=== PATIENT | female | born 1990 | race Caucasian/White ===

== ENCOUNTER 2016-09-19 12:31 | Emergency (ER) | payer BC ==
[2016-09-19] MEDS ORDERED: Sodium Chloride 0.9% 10 ML Syringe FLUSH PRN (13:16)
[2016-09-19] MEDS ORDERED: Sodium Chloride 0.9% 1,000 ML IV ONE (13:17)
--- NOTE | 2016-09-19 13:22 | EDM.PDOC ---
ED HISTORY OF PRESENT ILLNESS - General Chief Complaint: Cardiovascular Problem Stated Complaint: PASSED OUT,HIGH BLOOD PRESSURE Time Seen by Provider: 09/19/16 12:59 Source of Information: Reports: Patient History Limitations: Reports: No limitations - History of Present Illness INITIAL COMMENTS - FREE TEXT/NARRATIVE: Patient is a 26-year-old female who presents to the E.D. complaining of presyncopal episode today while sitting eating lunch. States she became lightheaded, dizzy while standing up and got the sensation she was going to black out. Patient sat down and symptoms resolved. [facility] findings of 170/124 heart rate 148. She had palpitations and developed a heaviness to chest. Chest heaviness was rated 5/10 worsened with taking a deep breath. She is mildly short of breath. She denies any cough. She does have a history walking pneumonia this past July and was prescribed Z-Dereje. She does not believe symptoms have resolved and is feeling excessively tired. Patient states her appetite has been okay. She's been sleeping well. She denies any increased stress while at work as of recent. There is no chance of being . She has no history of DVT/PE denies unilateral swelling, recent long travel, recent hospitalization, recent surgeries, PCP,smoking, or hemoptysis. She has a past history of ADHD and takes Concerta, hypertension, and night terrors takes prazosin. 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 She has been experiencing night terrors relieved with prazosin. Patient had a similar episode this past week while sitting at her desk typing. Patient notes at that time she did pass out for a short period of time. She was evaluated here in the ER with a blood pressure noted to be 156/144 heart rate 155. She did have blood work obtained which revealed she had elevated TSH. She was given metoprolol while in the emergency department and was instructed to follow up with PCP. Patient has an appointment with her primary care provider tomorrow. Timing/Duration: Reports: Improving, Waxing/waning Severity: moderate Location, General: Reports: chest (heaviness) Improves with: Reports: None Worsens with: Reports: Breathing, Other (palpation) Context, General: Reports: Other (none stated) Associated Symptoms (General): Reports: chest pain (heaviness), cough (minimal) , malaise, shortness of breath. 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) (none stated) - Related Data Allergies/ADRs: Allergies Allergy/AdvReac Type Severity Reaction Status Date / Time No Known Allergies Allergy Verified 09/19/16 12:43 Home Meds: Home Meds Levonorgestrel-Ethin Estradiol [Levonor-Eth Estrad 0.15-0.03] 1 tab PO DAILY 11/05 [History] Methylphenidate HCl [Concerta] 36 mg PO DAILY 02/24/16 [History] ClonazePAM [KlonoPIN] 2 mg PO BEDTIME #20 tab 09/19/16 [Rx] Metoprolol Tartrate 25 mg PO BID #60 tablet 09/19/16 [Rx] Past Medical History - Past Health History Medical/Surgical History: Denies Medical/Surgical History Cardiovascular History: Reports: Hypertension Neurological History: Reports: Other (see below) Other Neuro History: night terrors Psychiatric History: Reports: ADHD - Infectious Disease History Infectious Disease History: Reports: Chicken pox - Past Surgical History HEENT Surgical History: Reports: Oral surgery, Tonsillectomy Social & Family History - Tobacco Use Smoking Status *Q: Never Smoker Second Hand Smoke Exposure: No - Caffeine Use Caffeine Use: Reports: None - Alcohol Use Days Per Week of Alcohol Use: 1 - Recreational Drug Use Recreational Drug Use: No ED ROS GENERAL - Review of Systems Review Of Systems: See Below Constitutional: Reports: malaise, fatigue. Denies: fever, chills HEENT: Reports: No symptoms Respiratory: Reports: shortness of breath, pleuritic chest pain, cough. Denies : wheezing, sputum Cardiovascular: Reports: Chest pain, Blood pressure problem, Lightheadedness, Palpitations. Denies: Dyspnea on exertion, Orthopnea, PND, Syncope GI/Abdominal: Reports: No symptoms Musculoskeletal: Reports: no symptoms Neurological: Reports: dizziness. Denies: confusion, headache, numbness, pre- existing deficit, syncope, tingling, difficulty walking, weakness ED EXAM, GENERAL - Physical Exam Exam: See Below Exam Limited By: No limitations General Appearance: alert, WD/WN, anxious Eye Exam: bilateral eye: PERRL Ears: hearing grossly normal Nose: normal inspection Throat/Mouth: Normal voice, No airway compromise, Other (dry mouth) Neck: normal inspection, supple, non-tender, full range of motion. No: lymphadenopathy (L), lymphadenopathy (R) Respiratory/Chest: no respiratory distress, lungs clear, normal breath sounds Cardiovascular: normal peripheral pulses, regular rate, rhythm, no murmur, tachycardia Peripheral Pulses: 2+: radial (L) GI/Abdominal: normal bowel sounds, soft, non tender, no distention Back Exam: normal inspection Extremities: normal inspection, normal range of motion, non-tender, no pedal edema, normal capillary refill Neurological: alert, oriented, CN II-XII intact, normal cognition, no motor/ sensory deficits Psychiatric: normal affect, normal mood Skin Exam: Warm, Dry, Intact, Normal color Course - Vital Signs Last Recorded V/S: Last Vital Signs Temp 99.4 F 09/19/16 12:38 Pulse 102 H 09/19/16 15:56 Resp 19 09/19/16 15:56 BP 132/98 H 09/19/16 15:56 Pulse Ox 99 09/19/16 15:56 - Orders/Labs/Meds Orders: Active Orders 24 hr Category Date Time Status EKG Documentation Completion [RC] STAT Care 09/19/16 13:15 Active Event Monitor [RC] .PRN Care 09/19/16 15:00 Active Orthostatic Vital Signs [RC] ASDIRECTED Care 09/19/16 13:17 Active Peripheral IV Care [RC] . DIRECTED Care 09/19/16 13:16 Active Peripheral IV Insertion Adult [OM.PC] Stat Oth 09/19/16 13:15 Ordered Labs: Laboratory Tests 09/19/16 09/19/16 09/19/16 Range/Units 12:50 12:50 12:50 WBC 6.67 (3.98-10.04) K/mm3 RBC 5.01 (3.98-5.22) M/mm3 Hgb 15.0 (11.2-15.7) gm/L Hct 45.0 H (34.1-44.9) % MCV 89.8 (79.4-94.8) fl MCH 29.9 (25.6-32.2) pg MCHC 33.3 (32.2-35.5) g/dl RDW Std Deviation 41.9 (36.4-46.3) fL Plt Count 337 (182-369) K/mm3 MPV 9.9 (9.4-12.3) fl Neut % (Auto) 66.7 (34.0-71.1) % Lymph % (Auto) 27.1 (19.3-51.7) % [place] % (Auto) 5.4 (4.7-12.5) % Eos % (Auto) 0.4 L (0.7-5.8) Baso % (Auto) 0.3 (0.1-1.2) % Neut # 4.44 (1.56-6.13) K/mm3 Lymph # 1.81 (1.18-3.74) K/mm3 [place] # 0.36 (0.24-0.36) K/mm3 Eos # 0.03 L (0.04-0.36) K/mm3 Baso # 0.02 (0.01-0.08) K/mm3 D-Dimer, Quantitative 0.25 (0.19-0.59) mg/L Sodium 139 (136-145) mEq/L Potassium 3.4 L (3.5-5.1) mEq/L Chloride 103 (98-107) mEq/L Carbon Dioxide 27 (21-32) mEq/L Anion Gap 12.4 (5-15) BUN 6 L (7-18) mg/dL Creatinine 0.7 (0.55-1.02) mg/dL Est Cr Clr Drug Dosing TNP Estimated GFR (MDRD) > 60 (>60) mL/min BUN/Creatinine Ratio 8.6 L (14-18) Glucose 105 (74-106) mg/dL Calcium 9.0 (8.5-10.1) mg/dL Total Bilirubin 0.3 (0.2-1.0) mg/dL AST 16 (15-37) U/L ALT 27 (14-59) U/L Alkaline Phosphatase 57 (46-116) U/L Troponin I (0.00-0.056) ng/mL Total Protein 8.0 (6.4-8.2) g/dl Albumin 4.3 (3.4-5.0) g/dl Globulin 3.7 gm/dL Albumin/Globulin Ratio 1.2 (1-2) Urine Color (Yellow) Urine Appearance (Clear) Urine pH (5.0-8.0) Ur Specific [place] (1.005-1.030) Urine Protein (Negative) Urine Glucose (UA) (Negative) Urine Ketones (Negative) Urine Occult Blood (Negative) Urine Nitrite (Negative) Urine Bilirubin (Negative) Urine Urobilinogen (0.2-1.0) Ur Leukocyte Esterase (Negative) Urine RBC (0-5) /hpf Urine WBC (0-5) /hpf Ur Epithelial Cells (0-5) /hpf Urine Bacteria (FEW) /hpf Urine Mucus (FEW) /hpf 09/19/16 09/19/16 Range/Units 12:50 14:13 WBC (3.98-10.04) K/mm3 RBC (3.98-5.22) M/mm3 Hgb (11.2-15.7) gm/L Hct (34.1-44.9) % MCV (79.4-94.8) fl MCH (25.6-32.2) pg MCHC (32.2-35.5) g/dl RDW Std Deviation (36.4-46.3) fL Plt Count (182-369) K/mm3 MPV (9.4-12.3) fl Neut % (Auto) (34.0-71.1) % Lymph % (Auto) (19.3-51.7) % [place] % (Auto) (4.7-12.5) % Eos % (Auto) (0.7-5.8) Baso % (Auto) (0.1-1.2) % Neut # (1.56-6.13) K/mm3 Lymph # (1.18-3.74) K/mm3 [place] # (0.24-0.36) K/mm3 Eos # (0.04-0.36) K/mm3 Baso # (0.01-0.08) K/mm3 D-Dimer, Quantitative (0.19-0.59) mg/L Sodium (136-145) mEq/L Potassium (3.5-5.1) mEq/L Chloride (98-107) mEq/L Carbon Dioxide (21-32) mEq/L Anion Gap (5-15) BUN (7-18) mg/dL Creatinine (0.55-1.02) mg/dL Est Cr Clr Drug Dosing Estimated GFR (MDRD) (>60) mL/min BUN/Creatinine Ratio (14-18) Glucose (74-106) mg/dL Calcium (8.5-10.1) mg/dL Total Bilirubin (0.2-1.0) mg/dL AST (15-37) U/L ALT (14-59) U/L Alkaline Phosphatase (46-116) U/L Troponin I < 0.017 (0.00-0.056) ng/mL Total Protein (6.4-8.2) g/dl Albumin (3.4-5.0) g/dl Globulin gm/dL Albumin/Globulin Ratio (1-2) Urine Color Light yellow (Yellow) Urine Appearance Clear (Clear) Urine pH 7.0 (5.0-8.0) Ur Specific [place] 1.015 (1.005-1.030) Urine Protein Negative (Negative) Urine Glucose (UA) Negative (Negative) Urine Ketones Negative (Negative) Urine Occult Blood Negative (Negative) Urine Nitrite Negative (Negative) Urine Bilirubin Negative (Negative) Urine Urobilinogen 0.2 (0.2-1.0) Ur Leukocyte Esterase Negative (Negative) Urine RBC 0-5 (0-5) /hpf Urine WBC 0-5 (0-5) /hpf Ur Epithelial Cells 0-5 (0-5) /hpf Urine Bacteria Rare (FEW) /hpf Urine Mucus Not seen (FEW) /hpf Meds: Medications Discontinued Medications Generic Name Dose Route Start Last Admin Trade Name Freq PRN Reason Stop Dose Admin Sodium Chloride 1,000 mls @ 999 mls/hr 09/19/16 13:17 09/19/16 13:34 Normal Saline IV 09/19/16 14:17 999 mls/hr ONETIME ONE Administration Lorazepam 1 mg 09/19/16 13:16 09/19/16 14:05 Ativan IVPUSH 09/19/16 13:17 0.5 mg ONETIME ONE Administration Metoprolol Tartrate 25 mg 09/19/16 14:54 09/19/16 15:04 Lopressor PO 09/19/16 14:55 25 mg ONETIME ONE Administration Sodium Chloride 10 ml 09/19/16 13:16 09/19/16 14:08 Saline Flush FLUSH 10 ml ASDIRECTED PRN Administration Keep Vein Open - Re-Assessments/Exams Free Text/Narrative Re-Assessment/Exam: WIll obtain peripheral IV with NS 1000ml/hr, ativan 1mg IV. Initial labs and studies include CBC, C14, DDimer, CXR, EKG,Orthostatic vitals, UA with micro. HCG was obtained last and was negative. TSH was mildly elevated. 09/19/16 13:21 CXR revealed no acute abnormalities. Reviewed by Dr. Linda and he agrees. Final interpretation pending. Discussed patient with Dr. Linda suggested discontinuing prazosin and starting patient on clonazepam 2mg HS. Inaddition he agrees with starting patient on lopressor 25mg b.i.d for hypertension and tachycardia. 1450 Reassessment, discussed labs and studies with patient. BP stable HR 105. During discussion HR increases to 124. Patient appears to be anxious. Patient has been on prazosin since May 2016 for night terrors. This is a alpha arely with high propencity of developing orthostatic hypotension, syncopal episodes, dizziness, palpitations, and shortness of breath. Will stop this medication and start her on clonazepam 2mg at HS. She has appointment with PCP tomorrow morning. In addition will discharge patient home with event monitor for one month. I will also start patient on lopressor 25 mg bid. 1st dose here in the E.D. for hypertension/palpitations. Patient had no additional questions or concerns and agrees with treatment plan. 09/19/16 15:44 Prior to discharge nursing staff noted patient had red rash to the chest/upper arms/abdomen/and upper legs. They were concerned this was related to the ativan. Patient denies any itching nor is the rash consistent with hives. Discussed with he states it is very unlikely related to allergic reaction to ativan. Patient was administered metoprolol with rash already present. No other known factors. Patient will be discharged to take the medications as prescribed and if she should develop worsening rash to body with itching to discontinue the clonazepam take 50mg of benadryl and see PCP the following day. She was instructed to return back to the E.D. as needed for any worsening symptoms. Discharge instructions were changed per nursing staff. Departure - Departure Time of Disposition: 15:03 Disposition: Home, Self-Care 01 Condition: good Clinical Impression: Heart palpitations, Night terror, Tachycardia with hypertension Hypertension Qualifiers: Hypertension type: unspecified secondary hypertension Qualified Code(s): I15.9 - Secondary hypertension, unspecified Syncopal episodes Qualifiers: Syncope type: unspecified Qualified Code(s): R55 - Syncope and collapse Prescriptions: ClonazePAM [KlonoPIN] 2 mg PO BEDTIME #20 tab Metoprolol Tartrate 25 mg PO BID #60 tablet Instructions: Hypertension, [id number], Palpitations, [id number] Referrals: Yancy Mg DO [Primary Care Provider] - Forms: ED Department Discharge, Return to Work/School Form Additional Instructions: Stop taking the prazosin. Continue to push the fluids. With body position changes if you become dizzy sit or lay down until symptoms resolve. For tachycardia and hypertension take metoprolol 25 mg twice a day. For night terrors take clonazepam 2mg PO at HS. These medication changes may be modified by PCP. Event monitor will be in place for one month. Please record any events as experienced today, palpations, or any additional concerning episodes. Please keep appointment with PCP for tomorrow. Return to the E.D. for any new or worsening symptoms. Suggest monitoring BP daily with log kept. No driving today nor while taking the clonazepam. - My Orders Last 24 Hours: My Active Orders 09/19/16 13:15 EKG Documentation Completion [RC] STAT Peripheral IV Insertion Adult [OM.PC] Stat 09/19/16 13:16 Peripheral IV Care [RC] . DIRECTED 09/19/16 13:17 Orthostatic Vital Signs [RC] ASDIRECTED 09/19/16 15:00 Event Monitor [RC] .PRN - Assessment/Plan Last 24 Hours: My Active Orders 09/19/16 13:15 EKG Documentation Completion [RC] STAT Peripheral IV Insertion Adult [OM.PC] Stat 09/19/16 13:16 Peripheral IV Care [RC] . DIRECTED 09/19/16 13:17 Orthostatic Vital Signs [RC] ASDIRECTED 09/19/16 15:00 Event Monitor [RC] .PRN
[2016-09-19] MEDS: LORazepam 2 MG/ML MDV IVPUSH ONE ×2 (13:35→14:05)
[2016-09-19] MEDS ORDERED: Metoprolol Tartrate 25 MG Tab PO ONE (14:54)
--- NOTE | 2016-09-19 15:44 | CR ---
Chest: Two views of the chest were obtained. Comparison: No previous chest x-ray. Heart size and mediastinum are normal. Lungs are clear. Bony structures are unremarkable. Impression: 1. Nothing acute is identified on two-view chest x-ray. Diagnostic code #1
[2016-09-19 16:01] VITALS: BP 132/98
== END 2016-09-19 16:01 | disposition home or self-care (01) ==
LOC: JD.ED 12:31
DX: R55 Syncope and collapse (principal); R00.0 Tachycardia, unspecified; I15.9 Secondary hypertension, unspecified; Z98.890 Other specified postprocedural states; Z79.899 Other long term (current) drug therapy
CPT/HCPCS: 36415; 71020; 80053; 81001; 84484; 85025; 85379; 93005; 96361; 96374; 96376; 99285; A9270; J2060; J7040; J7050

== ENCOUNTER 2017-07-01 17:23 | Emergency (ER) | payer BC ==
--- NOTE | 2017-07-01 17:31 | EDM.PDOC ---
ED HPI GENERAL MEDICAL PROBLEM - General Chief Complaint: General Stated Complaint: HIGH BP/RACING HEART Time Seen by Provider: 07/01/17 17:31 - History of Present Illness INITIAL COMMENTS - FREE TEXT/NARRATIVE: 26-year-old female returns the emergency room with a rapid heartbeat and elevated blood pressure. The patient was driving and she felt light headed she looked at her I watch her pulse was 130. Patient has a history of supraventricular Tachycardia. Currently she's taking metoprolol 25 mg twice a day and his done fairly well on this. However she's noticed that her episodes of palpitations and rapid heart rate or getting a little more frequent. When the patient had this episode she properly pulled off the side of the road and took a half of a metoprolol. By the time she arrived here she is feeling better and her pulse rate is coming down the patient is not having chest pain chest pressure or difficulty breathing at this time when her pulse was racing at the worst she felt as though she just run a marathon in had a little bit of heartburn those sensations have resolved Chest Pain Score (Numeric/FACES): 3 - Related Data Allergies Allergy/AdvReac Type Severity Reaction Status Date / Time No Known Allergies Allergy Verified 07/01/17 17:32 Home Meds: Home Meds Levonorgestrel-Ethin Estradiol [Levonor-Eth Estrad 0.15-0.03] 1 tab PO DAILY 11/05 [History] Methylphenidate HCl [Concerta] 36 mg PO DAILY 02/24/16 [History] Metoprolol Tartrate 25 mg PO BID #60 tablet 09/19/16 [Rx] ClonazePAM [KlonoPIN] 1 mg PO BEDTIME 07/01/17 [History] Past Medical History - Past Health History Medical/Surgical History: Denies Medical/Surgical History Cardiovascular History: Reports: Hypertension Neurological History: Reports: Other (See Below) Other Neuro History: night terrors Psychiatric History: Reports: ADHD - Infectious Disease History Infectious Disease History: Reports: Chicken Pox - Past Surgical History HEENT Surgical History: Reports: Oral Surgery, Tonsillectomy Social & Family History - Tobacco Use Smoking Status *Q: Never Smoker Second Hand Smoke Exposure: No - Caffeine Use Caffeine Use: Reports: None - Alcohol Use Days Per Week of Alcohol Use: 1 - Recreational Drug Use Recreational Drug Use: No ED ROS GENERAL - Review of Systems Review Of Systems: See Below Constitutional: Reports: No Symptoms HEENT: Reports: No Symptoms Respiratory: Reports: No Symptoms Cardiovascular: Reports: Palpitations GI/Abdominal: Reports: No Symptoms Neurological: Reports: No Symptoms Psychiatric: Reports: No Symptoms ED EXAM, GENERAL - Physical Exam Exam: See Below Exam Limited By: No Limitations General Appearance: Alert, No Apparent Distress Head: Atraumatic, Normocephalic Neck: Normal Inspection, Supple, Non-Tender, Full Range of Motion Respiratory/Chest: No Respiratory Distress, Lungs Clear, Normal Breath Sounds Cardiovascular: Regular Rate, Rhythm, No Edema, No Murmur GI/Abdominal: Normal Bowel Sounds, Soft, Non-Tender EKG INTERPRETATION EKG Date: 07/01/17 Rhythm: NSR [place]: Normal P-Wave: Present QRS: Normal ST-T: Normal QT: Normal Comparison: No Change EKG Interpretation Comments: Normal EKG some baseline artifact no changes from prior watching her on telemetry at this time she goes from low 70s to upper 90s. Course - Vital Signs Last Recorded V/S: Last Vital Signs Temp 36.7 C 07/01/17 17:34 Pulse 100 07/01/17 17:34 Resp BP 142/104 H 07/01/17 17:34 Pulse Ox 97 07/01/17 17:34 - Re-Assessments/Exams Free Text/Narrative Re-Assessment/Exam: 07/01/17 18:09 Patient is doing well at this time she's been seen multiple times for this this episode is not associated with anxiety. She took a half metoprolol shortly before coming in her pulse rate responded on its own or perhaps related to the extremity wall. At this point I'm not sure the beneficial to increase her metoprolol versus have her take an extra half metoprolol when she has episodes like this. She is advised to follow-up with regular provider to discuss future treatment options. Departure - Departure Time of Disposition: 18:10 Disposition: Home, Self-Care 01 Clinical Impression: Heart palpitations, Sinus tachycardia - Discharge Information Referrals: Kelley Silva PA-C [Primary Care Provider] - Forms: ED Department Discharge Additional Instructions: Return to the emergency room with any questions problems worsening symptoms. Follow-up with your regular provider this next week. Discuss increasing her metoprolol would be of benefit as it seems like your frequency of episodes seems to be increasing. In the meantime use a half metoprolol on an as-needed basis.
[2017-07-01 18:44] VITALS: BP 112/89
== END 2017-07-01 18:50 | disposition home or self-care (01) ==
LOC: JD.ED 17:23
DX: R00.0 Tachycardia, unspecified (principal); R00.2 Palpitations; I10 Essential (primary) hypertension; Z79.899 Other long term (current) drug therapy
CPT/HCPCS: 93005; 93010; 99284-25; 99285-25

== ENCOUNTER 2020-02-02 10:42 | Emergency (ER) | payer BC, OTHER ==
[2020-02-02 11:07] VITALS: BP 146/97; PULSE 100
--- NOTE | 2020-02-02 11:32 | EDM.PDOC ---
ED HPI GENERAL MEDICAL PROBLEM - General Chief Complaint: Skin Complaint Stated Complaint: ABSCESS ON TAILBONE Time Seen by Provider: 02/02/20 11:00 Source of Information: Reports: Patient History Limitations: Reports: No Limitations - History of Present Illness INITIAL COMMENTS - FREE TEXT/NARRATIVE: Patient is a 29-year-old female , 37 weeks gestation, who presents to the emergency department with complaints of painful area of swelling directly over her tailbone. She states first noticed symptoms approximately 2 days ago. She has been using warm baths to help relieve the symptoms, however she feels like it is getting larger. She denies any associated symptoms including fever, chills, nausea, or vomiting. Of note, she was treated approximately 3 weeks ago for a urinary tract infection using Keflex. She states she tolerated this medication well. She has no other complaints. Lower Back Pain Score (Numeric/FACES): 8 - Related Data Allergies Allergy/AdvReac Type Severity Reaction Status Date / Time No Known Allergies Allergy Verified 02/02/20 11:07 Home Meds: Home Meds Aspirin [Halfprin] 81 mg PO DAILY 01/11/20 [History] Calcium Carbonate [Calcium] 500 mg PO DAILY 01/11/20 [History] Escitalopram Oxalate [Lexapro] 10 mg PO DAILY 01/11/20 [History] Ferrous Sulfate [Iron] 325 mg PO DAILY 01/11/20 [History] No122/Iron/Folic Acid [ Multi Tablet] 1 each PO DAILY 01/11/20 [History] RX: Levothyroxine 75 mcg PO ACBREAKFAST 01/11/20 [History] cephALEXin [Keflex] 500 mg PO Q6H 5 Days #20 cap 02/02/20 [Rx] Past Medical History - Past Health History Medical/Surgical History: Denies Medical/Surgical History Cardiovascular History: Reports: Hypertension 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 low amniotic fluid Neurological History: Reports: Other (See Below) Other Neuro History: night terrors Psychiatric History: Reports: ADHD - Infectious Disease History Infectious Disease History: Reports: Chicken Pox - Past Surgical History HEENT Surgical History: Reports: Oral Surgery, Tonsillectomy Social & Family History - Tobacco Use Smoking Status *Q: Never Smoker - Caffeine Use Caffeine Use: Reports: None ED ROS GENERAL - Review of Systems Review Of Systems: Comprehensive ROS is negative, except as noted in HPI. ED EXAM, SKIN/RASH Exam: See Below Exam Limited By: No Limitations General Appearance: Alert, WD/WN, No Apparent Distress Respiratory/Chest: No Respiratory Distress, Lungs Clear, Normal Breath Sounds, No Accessory Muscle Use, Chest Non-Tender Cardiovascular: Normal Peripheral Pulses, Regular Rate, Rhythm, No Edema, No Gallop, No JVD, No Murmur, No Rub (Female) Exam: Heart Tones (153) Back Exam: Other (Quarter sized area of erythema and swelling directly over the tailbone. Bedside ultrasound completed shows a small hypoechoic area fairly deep below the surface. No open areas or drainage noted.) Neurological: Alert, Oriented, CN II-XII Intact, Normal Cognition, Normal Gait, Normal Reflexes, No Motor/Sensory Deficits Psychiatric: Normal Affect, Normal Mood Course - Vital Signs Last Recorded V/S: Last Vital Signs Temp 97 F 02/02/20 11:04 Pulse 100 02/02/20 11:04 Resp 16 02/02/20 11:04 BP 146/97 H 02/02/20 11:04 Pulse Ox 97 02/02/20 11:04 - Re-Assessments/Exams Free Text/Narrative Re-Assessment/Exam: 02/02/20 11:34 On exam, patient has a quarter sized epidermal cyst over her tailbone. Ultrasound was completed and shows a very small hypoechoic area fairly deep below the surface, therefore I do not feel like I&D is appropriate at this time. We will start her on Keflex antibiotic. Recommend that she continue warm baths. She does have a follow-up appointment scheduled with her TELEGRAPHIC SERVICE DISPATCHER on Monday. Recommend that she have it rechecked at that time. Should increase in size drastically or pain should worsen significant, advised her she should come back to the emergency department as we may be able to I&D at that time. Departure - Departure Time of Disposition: 11:35 Disposition: Home, Self-Care 01 Condition: Good Clinical Impression: Epidermal cyst - Discharge Information *PRESCRIPTION DRUG MONITORING PROGRAM REVIEWED*: No *COPY OF PRESCRIPTION DRUG MONITORING REPORT IN PATIENT SPEEDY: No Prescriptions: cephALEXin [Keflex] 500 mg PO Q6H 5 Days #20 cap Instructions: Epidermal Cyst, [id number] Referrals: Ilene Guzman MD [Primary Care Provider] - Forms: ED Department Discharge Additional Instructions: You were seen in the emergency department today for painful area of swelling of your tailbone. Appears that you have an epidermal cyst in that area. A bedside ultrasound was completed and shows a small collection of fluid, however it is fa irly deep below the surface of the skin. There would be little benefit of opening the area at this time. You have been started on Keflex which is an antibiotic. Take this medication as prescribed. He may continue to take warm baths to help draw the infection out. There is a possibility that over the next couple days the area of fluid will move closer to the surface of the skin and at that time it may be beneficial to open the area. You may use [id number] Tylenol as needed for discomfort. Recommend that you follow-up with your TELEGRAPHIC SERVICE DISPATCHER on Monday as scheduled and have her reassess the area. If you should experience any worsening symptoms such as a drastic increase in size or worsening of pain, do not hesitate to return to the emergency department. Sepsis Event Note (ED) - Evaluation Sepsis Screening Result: No Definite Risk - Focused Exam Vital Signs: Vital Signs Temp Pulse Resp BP Pulse Ox 02/02/20 11:04 97 F 100 16 146/97 H 97
== END 2020-02-02 12:00 | disposition home or self-care (01) ==
LOC: JD.ED 10:42
DX: O99.713 Diseases of the skin and subcutaneous tissue complicating pregnancy, third trimester (principal); L72.0 Epidermal cyst; I10 Essential (primary) hypertension; Z79.82 Long term (current) use of aspirin; Z79.899 Other long term (current) drug therapy; Z3A.37 37 weeks gestation of pregnancy
CPT/HCPCS: 99282; 99283

== ENCOUNTER 2020-02-04 14:10 | Day surgery (SDC) | payer BC ==
[2020-02-04 13:54] VITALS: PULSE 91
--- NOTE | 2020-02-04 14:00 | PCM.PREANE ---
Preanesthetic Assessment - Procedure Proposed Procedure: I+D of pilonidal cyst - Anesthesia/Transfusion/Family Hx Anesthesia History: Prior Anesthesia Without Reaction - Review of Systems General: No Symptoms Pulmonary: No Symptoms Cardiovascular: No Symptoms Gastrointestinal: No Symptoms Neurological: No Symptoms Other: Reports: Anxiety - Physical Assessment Vital Signs: Last Vital Signs Temp 98.7 F 02/04/20 13:30 Pulse 91 02/04/20 13:30 Resp 16 02/04/20 13:30 BP 128/73 02/04/20 13:30 Pulse Ox 96 02/04/20 13:30 ASA Class: 2 Mental Status: Alert & Oriented x3 Airway Class: Mallampati = 2 Dentition: Reports: Normal Dentition, [place](s) Thyro-Mental Finger Breadths: 3 Mouth Opening Finger Breadths: 3 ROM/Head Extension: Full Lungs: Clear to Auscultation, Normal Respiratory Effort Cardiovascular: Regular Rate, Regular Rhythm - Allergies Allergies/Adverse Reactions: Allergies Allergy/AdvReac Type Severity Reaction Status Date / Time No Known Allergies Allergy Verified 02/02/20 11:07 - Acknowledgements Anesthesia Type Planned: MAC Pt an Appropriate Candidate for the Planned Anesthesia: Yes Alternatives and Risks of Anesthesia Discussed w Pt/Guardian: Yes Pt/Guardian Understands and Agrees with Anesthesia Plan: Yes PreAnesthesia Questionnaire - Past Health History Medical/Surgical History: Denies Medical/Surgical History Cardiovascular History: Reports: Hypertension 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 low amniotic fluid Neurological History: Reports: Other (See Below) Other Neuro History: night terrors Psychiatric History: Reports: ADHD - Infectious Disease History Infectious Disease History: Reports: Chicken Pox - Past Surgical History HEENT Surgical History: Reports: Oral Surgery, Tonsillectomy - HOME MEDS Home Medications: Home Meds Aspirin [Halfprin] 81 mg PO DAILY 01/11/20 [History] Calcium Carbonate [Calcium] 500 mg PO DAILY 01/11/20 [History] Escitalopram Oxalate [Lexapro] 10 mg PO DAILY 01/11/20 [History] Ferrous Sulfate [Iron] 325 mg PO DAILY 01/11/20 [History] Levothyroxine 75 mcg PO ACBREAKFAST 01/11/20 [History] No122/Iron/Folic Acid [ Multi Tablet] 1 each PO DAILY 01/11/20 [History] cephALEXin [Keflex] 500 mg PO Q6H 5 Days #20 cap 02/02/20 [Rx] - CURRENT (IN HOUSE) MEDS Current Meds: Current Medications Discontinued Medications Bupivacaine HCl/Epinephrine Bitart (Marcaine 0.5%/Epinephrine 1:200,000) Confirm Administered Dose 50 ml .ROUTE .STK-MED ONE Stop: 02/04/20 13:51
[~2020-02-04 14:10] MED LIST: Famotidine 20 MG/2 ML SDV IVPUSH ONE; Lactated Ringers 1,000 ML IV SCH; Lidocaine 1%/Sod Bicarbonate in NS 8.4% 1 ML Syringe IDERM PRN; Metoclopramide 10 MG/2 ML SDV IVPUSH ONE; Sodium Chloride 0.9% 10 ML Syringe FLUSH PRN
[2020-02-04] MEDS ORDERED: fentaNYL 100 MCG/2 ML SDV IVPUSH STA (14:30)
[2020-02-04] MEDS ORDERED: Ondansetron 4 MG/2 ML SDV ONE (14:42)
[2020-02-04] MEDS ORDERED: Propofol 200 MG/20 ML SDV ONE ×3 (14:42→15:20)
[2020-02-04] MEDS ORDERED: Lidocaine 1% 4 ML ONE (14:43)
[2020-02-04] MEDS ORDERED: fentaNYL 100 MCG/2 ML SDV ONE (14:43)
[2020-02-04] MEDS: Bupivacaine 0.5%/EPINEPHrine 1:200,000 50 ML MDV ONE ×2 (15:11→15:23)
[2020-02-04] MEDS ORDERED: Lactated Ringers 1,000 ML ONE (15:13)
--- NOTE | 2020-02-04 15:46 | PCM48HPAN ---
Post Anesthesia Note - EVALUATION WITHIN 48HRS OF ANESTHETIC Vital Signs in Normal Range: Yes Patient Participated in Evaluation: Yes Respiratory Function Stable: Yes Airway Patent: Yes Cardiovascular Function Stable: Yes Hydration Status Stable: Yes Pain Control Satisfactory: Yes Nausea and Vomiting Control Satisfactory: Yes Mental Status Recovered: Yes Vital Signs: Last Vital Signs Temp 37.1 C 02/04/20 13:30 Pulse 91 02/04/20 13:30 Resp 16 02/04/20 13:30 BP 128/73 02/04/20 13:30 Pulse Ox 96 02/04/20 13:30 - COMMENTS/OBSERVATIONS Free Text/Narrative:: no anesthesia complications noted
--- NOTE | 2020-02-04 16:04 | PCM.PRNOTE ---
- Free Text/Narrative Note: Date: 02/04/2020 Procedure: incision and drainage, debridement of pilonidal disease Surgeon: Abhi Samson MD Assisting: Love LAMB Findings: large pilonidal abscess with strands of hair in cavity. A small pit was noted inferior to the infected space which tracked superiorly toward the abscess cavity. Detailed Report: The patient was taken to the OR in left lateral decubitus position and monitored anesthesia care initiated. The lower back and buttocks were prepped and draped in sterile fashion. Time out was performed. A total of 26 cc 0.5% marcaine with epinephrine was injected intradermally around the lesion. An 11 blade scalpel was then used to make a curvilinear paramedian incision at the site of fluctuance. Copious pus was drained, and samples for culture were obtained. Once no more pus was able to be expressed, The midline skin at the abscess site was removed as a longitudinally oriented ellipse. The wound measured 3 cm long by 2 cm wide by 3.5 cm deep. A few long strands of hair were removed from the cavity. Loculations were broken up with a hemostat, and a sponge was used to clear away some blood and fibrinous debris. Devitalized tissue and hair was removed with forceps. A curette was used to debride the surfaces of the wound cavity. Once hemostasis was achieved, dilute phenol solution was applied to the wound, with care taken to protect the surrounding skin. A small pit was noted inferior to the cavity along the cleft. A lacrimal probe was inserted and the tract went superiorly and deeply toward the abscess cavity. An incision was made over top the probe, laying the tract open between the pit and the abscess cavity. This tissue appeared uninfected. A moistened kerlix gauze wrap was packed into the wound space and a dressing of ABD pad and mesh underwear applied. The patient tolerated the procedure well.
[2020-02-04 16:29] VITALS: BP 121/76
== END 2020-02-04 16:29 | disposition home or self-care (01) ==
LOC: JD.SDS 14:10
PROVIDERS: ATTEND Surgery
DX: O99.713 Diseases of the skin and subcutaneous tissue complicating pregnancy, third trimester (principal); L05.01 Pilonidal cyst with abscess; B95.2 Enterococcus as the cause of diseases classified elsewhere; B96.89 Other specified bacterial agents as the cause of diseases classified elsewhere; O99.513 Diseases of the respiratory system complicating pregnancy, third trimester; J45.909 Unspecified asthma, uncomplicated; O99.343 Other mental disorders complicating pregnancy, third trimester; F41.0 Panic disorder [episodic paroxysmal anxiety]; F90.9 Attention-deficit hyperactivity disorder, unspecified type; O10.013 Pre-existing essential hypertension complicating pregnancy, third trimester; O99.283 Endocrine, nutritional and metabolic diseases complicating pregnancy, third trimester; E78.00 Pure hypercholesterolemia, unspecified; E03.9 Hypothyroidism, unspecified; O99.613 Diseases of the digestive system complicating pregnancy, third trimester; K21.9 Gastro-esophageal reflux disease without esophagitis; Z79.899 Other long term (current) drug therapy; Z79.82 Long term (current) use of aspirin; Z3A.37 37 weeks gestation of pregnancy
CPT/HCPCS: 11042; 11045; 87075; 87076; 87077; 87205; J0131; J2001; J2405; J2704; J2765; J3010; J3490; J7120; 00300

== ENCOUNTER 2020-02-10 18:53 | Inpatient (IN) | payer BC ==
[2020-02-10] MEDS ORDERED: Nalbuphine 10 MG/ML Syringe IVPUSH PRN (19:28)
[2020-02-10] MEDS ORDERED: Famotidine 20 MG Tab PO PRN (19:28)
[2020-02-10] MEDS ORDERED: Calcium Carbonate 500 MG Tab.Chew PO PRN (19:28)
[2020-02-10] MEDS ORDERED: Lidocaine 1% 50 ML MDV INJECT ONE (19:28)
[2020-02-10] MEDS ORDERED: Sodium Chloride 0.9% 10 ML Syringe FLUSH PRN (19:28)
[2020-02-10] MEDS ORDERED: Ondansetron 4 MG/2 ML SDV IVPUSH PRN (19:28)
[2020-02-10] MEDS ORDERED: Promethazine 25 MG/ML SDV IM PRN (19:39)
[2020-02-10] MEDS ORDERED: Misoprostol 25 MCG (1/4 of 100 MCG) Tab ONE (19:53)
[2020-02-10] MEDS: Misoprostol 25 MCG (1/4 of 100 MCG) Tab VAG SCH ×2 (19:57→23:54)
--- NOTE | 2020-02-10 20:17 | PCM.LDHP ---
L&D History of Present Illness - General Date of Service: 02/10/20 Admit Problem/Dx: Patient Status Order with Admit Dx/Problem 02/10/20 19:29 Patient Status [ADT] Routine Admission Diagnosis/Problem Admission Diagnosis/Problem Source of Information: Patient History Limitations: Reports: No Limitations - History of Present Illness Introduction:: 29 yo at 37+2 weeks gestation admitted for induction of labor due to preeclampsia. She has had a positive urine protein to creatinine ratio and she has had bp running in the 135-145/80-95 range, but recently have been mostly 130/80's. She has a history of hypertension prior to the but we were able to stop her medicine during the . WE have been seeing her twice weekly for BPP and NST and also weekly labs and they have all been stable. EFW at last BPP on 02/04/20 was 7 lb 5 oz. She also has hypothyroidism and is on levothyroxine 75 mcg daily and thyroid hormone levels have been normal. She has a history of anxiety and has been on escitalopram during her . She has a history of asthma but has not had problems with her breathing recently. She has had some reflux and was having upper abdominal pain that has resolved with Pepcid 20 mg bid. She developed an infected pilonidal cyst that was very painful and had I&D in the OR with Dr. Mcallister on 02/04/20. She is doing twice daily packing changes at home and only has pain with the packing and no purulent drainage or redness at the site. Denies fever. Denies cough, sore throat or SOB. labs reveal blood type A +, antibody screen neg, infectious disease screening negative. She had tetra screen that was low risk for DS, T18 and OSB. 1 hour glucola was wnl at 82 and GBS test is negative. She has had mild anemia and has been taking iron. Platelet count has been normal, liver enzymes normal. She denies having contractions. She is having a girl on ultrasound. She is not sure about breast or bottle feeding. She had her Tdap and influenza vaccines. - Related Data Allergies/Adverse Reactions: Allergies Allergy/AdvReac Type Severity Reaction Status Date / Time No Known Allergies Allergy Verified 02/10/20 20:16 Home Medications: Home Meds Aspirin [Halfprin] 81 mg PO DAILY 01/11/20 [History] Calcium Carbonate [Calcium] 500 mg PO DAILY 01/11/20 [History] Escitalopram Oxalate [Lexapro] 10 mg PO DAILY 01/11/20 [History] Ferrous Sulfate [Iron] 325 mg PO DAILY 01/11/20 [History] Levothyroxine 75 mcg PO ACBREAKFAST 01/11/20 [History] No122/Iron/Folic Acid [ Multi Tablet] 1 each PO DAILY 01/11/20 [History] oxyCODONE 5 mg PO Q4H PRN #30 tab 02/04/20 [Rx] Past Medical History - Past Health History Medical/Surgical History: Denies Medical/Surgical History Cardiovascular History: Reports: Hypertension 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 low amniotic fluid Neurological History: Reports: Other (See Below) Other Neuro History: night terrors Psychiatric History: Reports: ADHD - Infectious Disease History Infectious Disease History: Reports: Chicken Pox - Past Surgical History HEENT Surgical History: Reports: Oral Surgery, Tonsillectomy Social & Family History - Caffeine Use Caffeine Use: Reports: None H&P Review of Systems - Review of Systems: Review Of Systems: See Below General: Reports: No Symptoms HEENT: Reports: No Symptoms Pulmonary: Reports: No Symptoms Cardiovascular: Reports: No Symptoms Gastrointestinal: Reports: No Symptoms Genitourinary: Reports: No Symptoms Musculoskeletal: Reports: No Symptoms Skin: Reports: Wound (Site over sacrum where I&D of pilonidal cyst performed with no surrounding heat or erythema. No purulent drainage noted. The wound is packed with gauze.) Psychiatric: Reports: Anxiety Neurological: Reports: No Symptoms Hematologic/Lymphatic: Reports: Anemia Immunologic: Reports: No Symptoms L&D Exam - Exam Exam: See Below - OB Specific Contraction Frequency (min): no contractions noted Movement: Active Heart Tones: Present Heart Tones per Min: 135 Heart Rate (FHR) Variability: Moderate (6-25 bmp) Presentation: Vertex Estimated Weight: 7 lb 5 oz - Marques Score Marques Score Cervix Position: Posterior Marques Score Consistency: Firm Marques Score Effacement: 0-30% Marques Score Dilation: Closed Marques Score 's Station: -2 Marques Score Total: 1 - Exam General: Alert, Oriented, Cooperative HEENT: Conjunctiva Clear, Mucosa Moist & [place], Pupils Equal Neck: Supple, Trachea Midline Lungs: Normal Respiratory Effort Cardiovascular: Regular Rate, Regular Rhythm GI/Abdominal Exam: Normal Bowel Sounds, Non-Tender Rectal Exam: Deferred Genitourinary: Enlarged uterus Back Exam: Normal Inspection, Full Range of Motion Extremities: Normal Inspection, No Pedal Edema Skin: Warm, Dry, Intact, Wound (Incision over sacrum from I&D on 02/04/20. Wound is currently packed, no surrounding heat or erythema) Neurological: Cranial Nerves Intact Psychiatric: Alert, Normal Affect - Patient Data Lab Results Last 24 hrs: Laboratory Results - last 24 hr 02/10/20 Range/Units 19:50 WBC 9.37 (3.98-10.04) K/mm3 RBC 3.31 L (3.98-5.22) M/mm3 Hgb 10.3 L (11.2-15.7) gm/dl Hct 31.5 L (34.1-44.9) % MCV 95.2 H (79.4-94.8) fl MCH 31.1 (25.6-32.2) pg MCHC 32.7 (32.2-35.5) g/dl RDW Std Deviation 43.7 (36.4-46.3) fL Plt Count 304 (182-369) K/mm3 MPV 10.1 (9.4-12.3) fl Result Diagrams: 02/10/20 19:50 - Problem List (1) 37 weeks gestation of SNOMED Code(s): 34796983 ICD Code: Z3A.37 - 37 WEEKS GESTATION OF Status: Acute Current Visit: Yes (2) Preeclampsia SNOMED Code(s): 863765891 ICD Code: O14.90 - UNSPECIFIED PRE-ECLAMPSIA, UNSPECIFIED TRIMESTER Status: Acute Current Visit: Yes (3) Anxiety SNOMED Code(s): 23610048 ICD Code: F41.9 - ANXIETY DISORDER, UNSPECIFIED Status: Acute Current Visit: Yes (4) Asthma SNOMED Code(s): 267674593 ICD Code: J45.909 - UNSPECIFIED ASTHMA, UNCOMPLICATED Status: Acute Current Visit: Yes (5) Encounter for planned induction of labor SNOMED Code(s): 021299244 ICD Code: Z34.90 - ENCNTR FOR SUPRVSN OF NORMAL , UNSP, UNSP TRIMESTER Status: Acute Current Visit: Yes (6) Hypothyroidism SNOMED Code(s): 78712380 ICD Code: E03.9 - HYPOTHYROIDISM, UNSPECIFIED Status: Acute Current Visit: No Qualifiers: Hypothyroidism type: unspecified Qualified Code(s): E03.9 - Hypothyroidism, unspecified Problem List Initiated/Reviewed/Updated: Yes Orders Last 24hrs: Active Orders 24 hr Category Date Time Status Patient Status [ADT] Routine ADT 02/10/20 19:29 Active Activity as Tolerated [RC] PFP Care 02/10/20 19:29 Active Communication Order [RC] ASDIRECTED Care 02/10/20 19:29 Active Heart Tones [RC] ASDIRECTED Care 02/10/20 19:30 Active Non Stress Test [RC] PER UNIT ROUTINE Care 02/10/20 19:29 Active Notify Provider [RC] PFP Care 02/10/20 19:29 Active Notify Provider [RC] PRN Care 02/10/20 19:29 Active Peripheral IV Care [RC] . DIRECTED Care 02/10/20 19:30 Active Vital Signs [RC] PER UNIT ROUTINE Care 02/10/20 19:29 Active Regular Diet [DIET] Diet 02/10/20 Dinner Active COMPREHENSIVE METABOLIC PN,CMP [CHEM] Stat Lab 02/10/20 19:50 Received INR,PT,PROTHROMBIN TIME [COAG] Stat Lab 02/10/20 19:50 Received PTT,PARTIAL THROMBOPLSTIN TIME [COAG] Stat Lab 02/10/20 19:50 Received RAPID PLASMA REAGIN,RPR [CHEM] Routine Lab 02/10/20 19:50 Received UA W/MICROSCOPIC [URIN] Stat Lab 02/10/20 19:28 Ordered Calcium Carbonate [Tums] Med 02/10/20 19:28 Active 1,000 mg PO Q2H PRN Famotidine [Pepcid] Med 02/10/20 19:28 Active 20 mg PO Q12H PRN Lactated Ringers [Ringers, Lactated] 1,000 ml Med 02/10/20 19:30 Active IV ASDIRECTED Levothyroxine Med 02/11/20 06:00 Active 75 mcg PO ACBREAKFAST Nalbuphine [Nubain] Med 02/10/20 19:28 Active 10 mg IVPUSH Q2H PRN Oxytocin/Lactated Ringers [Pitocin in LR 10 Units/1,000 Med 02/10/20 19:30 Active ML] 10 unit in 1,000 ml IV .CONTINUOUS Promethazine [Phenergan] Med 02/10/20 19:39 Active 25 mg IM Q6H PRN Sodium Chloride 0.9% [Saline Flush] Med 02/10/20 19:28 Active 10 ml FLUSH ASDIRECTED PRN miSOPROStoL [Cytotec] Med 02/10/20 19:45 Active 25 mcg VAG Q4H oxyCODONE Med 02/10/20 19:48 Active 5 mg PO Q6H PRN Electronic Heart Tones Ext w TOCO [WOMSER] Oth 02/10/20 19:29 Ordered Routine Electronic Heart Tones Internal [WOMSER] Per Unit Ot 02/10/20 19:29 O rdered Routine Peripheral IV Insertion Adult [OM.PC] Routine Ot 02/10/20 19:29 Ordered Resuscitation Status Routine Resus Stat 02/10/20 19:28 Ordered Medication Orders Calcium Carbonate/Glycine (Tums) 1,000 mg PO Q2H PRN PRN Reason: Indigestion Famotidine (Pepcid) 20 mg PO Q12H PRN PRN Reason: Heartburn Oxytocin/Lactated Ringer's (Pitocin In Lr 10 Units/1,000 Ml) 10 unit in 1,000 mls @ 500 mls/hr IV .CONTINUOUS JAISON Lactated Ringer's (Ringers, Lactated) 1,000 mls @ 100 mls/hr IV ASDIRECTED [facility] Levothyroxine Sodium (Levothyroxine) 75 mcg PO ACBREAKFAST [facility] Misoprostol (Cytotec) 25 mcg VAG Q4H JAISON Stop: 02/11/20 03:46 Nalbuphine HCl (Nubain) 10 mg IVPUSH Q2H PRN PRN Reason: Pain Oxycodone HCl (Oxycodone) 5 mg PO Q6H PRN PRN Reason: pain Promethazine HCl (Phenergan) 25 mg IM Q6H PRN PRN Reason: Nausea Sodium Chloride (Saline Flush) 10 ml FLUSH ASDIRECTED PRN PRN Reason: Keep Vein Open Assessment/Plan Comment:: 29 yo female at 37+2 weeks gestation admitted for induction of labor due to preeclampsia. She has not had any severe features. BPP on 02/04/20 scored 8/8 with EFW 7 lb 5 oz and PABLO of 10.6. Cervix is not favorable at this time, so cytotec 25 mcg tablet will be placed pv and repeated up to 3 doses. Labs done tonight. Will monitor closely. Pilonidal cyst with abscess and s/p I&D in the OR on 02/04/20 and is healing well, no sign of infection at this time. Twice daily packing changes with a dose of oxycodone 5 mg prior to procedure. Hypothyroidism - stable on 75 mcg daily. Anxiety - has done well on Lexapro 10 mg daily. Asthma - mild and stable, no flares during her . Mild anemia - has been taking her vitami and iron supplement.
--- NOTE | 2020-02-10 21:39 | PCM.PREANE ---
Preanesthetic Assessment - Procedure Proposed Procedure: Continuous labor epidural - Anesthesia/Transfusion/Family Hx Anesthesia History: Prior Anesthesia Without Reaction Transfusion History: No Prior Transfusion(s) Additional History: recent I&D of pilonidal cyst on 02/04/20. Healing well, off antibiotics. - Review of Systems General: No Symptoms Pulmonary: No Symptoms Cardiovascular: No Symptoms Gastrointestinal: No Symptoms Neurological: No Symptoms Other: Reports: Anxiety - Physical Assessment Vital Signs: Last Vital Signs Temp 97.0 F 02/10/20 19:29 Pulse 85 02/10/20 19:29 Resp 16 02/10/20 19:29 BP 143/84 H 02/10/20 19:29 Pulse Ox 98 02/10/20 19:29 Height: 1.65 m Weight: 90.356 kg ASA Class: 2 Airway Class: Mallampati = 2 Dentition: Reports: Normal Dentition, [place](s) Thyro-Mental Finger Breadths: 3 Mouth Opening Finger Breadths: 3 ROM/Head Extension: Full Lungs: Clear to Auscultation, Normal Respiratory Effort Cardiovascular: Regular Rate, Regular Rhythm - Lab Values: Laboratory Last Values WBC 9.37 K/mm3 (3.98-10.04) 02/10/20 19:50 RBC 3.31 M/mm3 (3.98-5.22) L 02/10/20 19:50 Hgb 10.3 gm/dl (11.2-15.7) L 02/10/20 19:50 Hct 31.5 % (34.1-44.9) L 02/10/20 19:50 MCV 95.2 fl (79.4-94.8) H 02/10/20 19:50 MCH 31.1 pg (25.6-32.2) 02/10/20 19:50 MCHC 32.7 g/dl (32.2-35.5) 02/10/20 19:50 RDW Std Deviation 43.7 fL (36.4-46.3) 02/10/20 19:50 Plt Count 304 K/mm3 (182-369) 02/10/20 19:50 MPV 10.1 fl (9.4-12.3) 02/10/20 19:50 PT 9.4 SECONDS (9.7-12.0) L 02/10/20 19:50 INR < 0.93 07/20/20 19:50 APTT 25 SECONDS (22-31) 02/10/20 19:50 Sodium 140 mEq/L (136-145) 02/10/20 19:50 Potassium 3.3 mEq/L (3.5-5.1) L 02/10/20 19:50 Chloride 106 mEq/L (98-107) 02/10/20 19:50 Carbon Dioxide 22 mEq/L (21-32) 02/10/20 19:50 Anion Gap 15.3 (5-15) H 02/10/20 19:50 BUN 11 mg/dL (7-18) 02/10/20 19:50 Creatinine 0.9 mg/dL (0.55-1.02) 02/10/20 19:50 Est Cr Clr Drug Dosing 82.25 mL/min 02/10/20 19:50 Estimated GFR (MDRD) > 60 mL/min (>60) 02/10/20 19:50 BUN/Creatinine Ratio 12.2 (14-18) L 02/10/20 19:50 Glucose 84 mg/dL (74-106) 02/10/20 19:50 Calcium 8.9 mg/dL (8.5-10.1) 02/10/20 19:50 Total Bilirubin 0.2 mg/dL (0.2-1.0) 02/10/20 19:50 AST 22 U/L (15-37) 02/10/20 19:50 ALT 32 U/L (14-59) 02/10/20 19:50 Alkaline Phosphatase 137 U/L (46-116) H 02/10/20 19:50 Total Protein 6.3 g/dl (6.4-8.2) L 02/10/20 19:50 Albumin 2.5 g/dl (3.4-5.0) L 02/10/20 19:50 Globulin 3.8 gm/dL 02/10/20 19:50 Albumin/Globulin Ratio 0.7 (1-2) L 02/10/20 19:50 Urine Color Yellow (Yellow) 02/10/20 19:55 Urine Appearance Clear (Clear) 02/10/20 19:55 Urine pH 7.0 (5.0-8.0) 02/10/20 19:55 Ur Specific [place] 1.025 (1.005-1.030) 02/10/20 19:55 Urine Protein Negative (Negative) 02/10/20 19:55 Urine Glucose (UA) Negative (Negative) 02/10/20 19:55 Urine Ketones Trace (Negative) H 02/10/20 19:55 Urine Occult Blood Negative (Negative) 02/10/20 19:55 Urine Nitrite Negative (Negative) 02/10/20 19:55 Urine Bilirubin Negative (Negative) 02/10/20 19:55 Urine Urobilinogen 0.2 (0.2-1.0) 02/10/20 19:55 Ur Leukocyte Esterase 1+ (Negative) H 02/10/20 19:55 Urine RBC 0-5 /hpf (0-5) 02/10/20 19:55 Urine WBC 5-10 /hpf (0-5) H 02/10/20 19:55 Ur Squamous Epith Cells 0-5 /hpf (0-5) 02/10/20 19:55 Amorphous Sediment Few /hpf (NOT SEEN) H 02/10/20 19:55 Urine Bacteria Moderate /hpf (FEW) H 02/10/20 19:55 Urine Mucus Few /hpf (FEW) 02/10/20 19:55 RPR Non-reactive (NONREACTIVE) 02/10/20 19:50 - Allergies Allergies/Adverse Reactions: Allergies Allergy/AdvReac Type Severity Reaction Status Date / Time No Known Allergies Allergy Verified 02/10/20 20:16 - Acknowledgements Anesthesia Type Planned: Epidural Pt an Appropriate Candidate for the Planned Anesthesia: Yes Alternatives and Risks of Anesthesia Discussed w Pt/Guardian: Yes Pt/Guardian Understands and Agrees with Anesthesia Plan: Yes PreAnesthesia Questionnaire - Past Health History Medical/Surgical History: Denies Medical/Surgical History HEENT History: Reports: Other (See Below) Other HEENT History: Wears glasses Cardiovascular History: Reports: Hypertension Other Cardiovascular History: Sinus tachycardia Respiratory History: Reports: Asthma Gastrointestinal History: Reports: Chronic Constipation, GERD, Irritable Bowel Syndrome RN LABOR AND DELIVERY History: Reports: Other (See Below) Other OB/BYN History: hypercoiled ambilical cord. low amniotic fluid Neurological History: Reports: Other (See Below) Other Neuro History: night terrors Psychiatric History: Reports: ADHD Other Psychiatric History: Night terrors Endocrine/Metabolic History: Reports: Hypothyroidism, Vitamin D Deficiency Hematologic History: Reports: Anemia - Infectious Disease History Infectious Disease History: Reports: Chicken Pox - Past Surgical History HEENT Surgical History: Reports: Oral Surgery, Tonsillectomy - SUBSTANCE USE Smoking Status *Q: Never Smoker Second Hand Smoke Exposure: No Recreational Drug Use History: No - HOME MEDS Home Medications: Home Meds Aspirin [Halfprin] 81 mg PO DAILY 01/11/20 [History] Calcium Carbonate [Calcium] 500 mg PO DAILY 01/11/20 [History] Escitalopram Oxalate [Lexapro] 10 mg PO DAILY 01/11/20 [History] Ferrous Sulfate [Iron] 325 mg PO DAILY 01/11/20 [History] Levothyroxine 75 mcg PO ACBREAKFAST 01/11/20 [History] No122/Iron/Folic Acid [ Multi Tablet] 1 each PO DAILY 01/11/20 [History] oxyCODONE 5 mg PO Q4H PRN #30 tab 02/04/20 [Rx] Albuterol Sulfate 2.5 mg IH Q4HR PRN 02/10/20 [History] Albuterol [Ventolin HFA] 2 puff INH Q4H PRN 02/10/20 [History] Cholecalciferol (Vitamin D3) [Vitamin D3] 5,000 unit PO DAILY 02/10/20 [History] Cyclobenzaprine HCl 5 - 10 mg PO TID PRN 02/10/20 [History] Famotidine [Acid Controller] 20 mg PO Q12HR PRN 02/10/20 [History] - CURRENT (IN HOUSE) MEDS Current Meds: Current Medications Calcium Carbonate/Glycine (Tums) 1,000 mg PO Q2H PRN PRN Reason: Indigestion Famotidine (Pepcid) 20 mg PO Q12H PRN PRN Reason: Heartburn Hydroxyzine HCl (Atarax) 25 mg PO BEDTIME JAISON Oxytocin/Lactated Ringer's (Pitocin In Lr 10 Units/1,000 Ml) 10 unit in 1,000 mls @ 500 mls/hr IV .CONTINUOUS JAISON Lactated Ringer's (Ringers, Lactated) 1,000 mls @ 100 mls/hr IV ASDIRECTED JAISON Levothyroxine Sodium (Levothyroxine) 75 mcg PO ACBREAKFAST JAISON Misoprostol (Cytotec) 25 mcg VAG Q4H JAISON Stop: 02/11/20 03:46 Last Admin: 02/10/20 19:57 Dose: 25 mcg Documented by: Nalbuphine HCl (Nubain) 10 mg IVPUSH Q2H PRN PRN Reason: Pain Oxycodone HCl (Oxycodone) 5 mg PO Q6H PRN PRN Reason: pain Promethazine HCl (Phenergan) 25 mg IM Q6H PRN PRN Reason: Nausea Sodium Chloride (Saline Flush) 10 ml FLUSH ASDIRECTED PRN PRN Reason: Keep Vein Open Discontinued Medications Lidocaine HCl (Xylocaine 1%) 20 ml INJECT ONETIME ONE Stop: 02/10/20 19:29 Misoprostol (Cytotec) Confirm Administered Dose 25 mcg .ROUTE .STK-MED ONE Stop: 02/10/20 19:54 Ondansetron HCl (Zofran) 4 mg IVPUSH Q4H PRN PRN Reason: Nausea/Vomiting
[2020-02-10] MEDS ORDERED: fentaNYL 100 MCG/2 ML SDV EPIDUR PRN (21:45)
[2020-02-10] MEDS ORDERED: ePHEDrine 50 MG/ML SDV IVPUSH PRN (21:45)
[2020-02-10] MEDS ORDERED: diphenhydrAMINE 50 MG/ML SDV IVPUSH PRN (21:45)
[2020-02-10] MEDS: hydrOXYzine HCl 25 MG Tab PO SCH (22:47)
[2020-02-11] MEDS: Misoprostol 25 MCG (1/4 of 100 MCG) Tab VAG SCH (03:54)
[2020-02-11] MEDS: oxyCODONE 5 MG Tab PO PRN (05:04)
[2020-02-11] MEDS: Levothyroxine 75 MCG Tab PO SCH (06:18)
--- NOTE | 2020-02-11 08:45 | PCM.PNLD ---
Labor Progress Note - VS & Meds Vital Signs: Last Vital Signs Temp 36.1 C 02/10/20 19:29 Pulse 85 02/10/20 19:29 Resp 16 02/10/20 19:29 BP 143/84 H 02/10/20 19:29 Pulse Ox 98 02/10/20 19:29 Active Medications: Current Medications Calcium Carbonate/Glycine (Tums) 1,000 mg PO Q2H PRN PRN Reason: Indigestion Diphenhydramine HCl (Benadryl) 25 mg IVPUSH Q6H PRN PRN Reason: pruritis Ephedrine Sulfate (Ephedrine Sulfate) 5 mg IVPUSH ASDIRECTED PRN PRN Reason: Hypotension Famotidine (Pepcid) 20 mg PO Q12H PRN PRN Reason: Heartburn Fentanyl (Sublimaze) 100 mcg EPIDUR Q3H PRN PRN Reason: Pain Fentanyl/Bupivacaine HCl (Fentanyl/Bupivacaine/Ns 2 Mcg-0.125% 100 Ml) 100 ml EPIDUR ASDIRECTED PRN PRN Reason: Pain Hydroxyzine HCl (Atarax) 25 mg PO BEDTIME [facility] Last Admin: 02/10/20 22:47 Dose: 25 mg Documented by: Oxytocin/Lactated Ringer's (Pitocin In Lr 10 Units/1,000 Ml) 10 unit in 1,000 mls @ 500 mls/hr IV .CONTINUOUS JAISON Lactated Ringer's (Ringers, Lactated) 1,000 mls @ 100 mls/hr IV ASDIRECTED JAISON Levothyroxine Sodium (Levothyroxine) 75 mcg PO ACBREAKFAST [facility] Last Admin: 02/11/20 06:18 Dose: 75 mcg Documented by: Nalbuphine HCl (Nubain) 10 mg IVPUSH Q2H PRN PRN Reason: Pain Oxycodone HCl (Oxycodone) 5 mg PO Q6H PRN PRN Reason: pain Last Admin: 02/11/20 05:04 Dose: 5 mg Documented by: Promethazine HCl (Phenergan) 25 mg IM Q6H PRN PRN Reason: Nausea Sodium Chloride (Saline Flush) 10 ml FLUSH ASDIRECTED PRN PRN Reason: Keep Vein Open Discontinued Medications Lidocaine HCl (Xylocaine 1%) 20 ml INJECT ONETIME ONE Stop: 02/10/20 19:29 Misoprostol (Cytotec) 25 mcg VAG Q4H JAISON Stop: 02/11/20 03:46 Last Admin: 02/11/20 03:54 Dose: 25 mcg Documented by: Misoprostol (Cytotec) Confirm Administered Dose 25 mcg .ROUTE .STK-MED ONE Stop: 02/10/20 19:54 Last Admin: 02/10/20 22:48 Dose: Not Given Documented by: Ondansetron HCl (Zofran) 4 mg IVPUSH Q4H PRN PRN Reason: Nausea/Vomiting - Uterine Contractions Uterine Monitoring Mode: External [place] Contraction Frequency (min): irregular tightenings Contraction Duration (sec): 60 Contraction Intensity: Mild Uterine Resting Tone: Soft - Monitoring Monitor Mode: External Ultrasound Heart Rate (FHR) Baseline: 130 Heart Rate (FHR) Variability: Moderate (6-25 bmp) Accelerations: Present, 15x15 Decelerations: None Strip Review: Category I - Vaginal Exam Dilation (cm): 1 cm Effacement (Percent): 30% Station: -2 Cervical Position: Posterior Sterile Vaginal Exam Performed By: Dr. Guzman - Labor Progress (Free Text) Labor Progress: She has received 3 doses of vaginal cytotec 25 mcg. Last dose at 0400. She is feeling more cramping, but still comfortable. Fetus has tolerated with category I strip. Her bp has been 130-140/80-90's. Cervix is only 1 cm, 30% effaced and posterior. Discussed placing mckeon to assist with cervical ripening and start pitocin simultaneously. Patient agreed to the plan. Speculum inserted and there was a large amount of thick white with blood tinge discharge and cervix difficult to visualize. I placed a finger of an XL glove over the speculum blades to prevent the side briones from falling in and reinserted the speculum. Good visualization of the cervix obtained and a 16 Fr catheter was passed through the cervical os easily and then the bulb was filled with 30 cc of saline. Speculum removed. Patient tolerated procedure. Assessment - at 37 weeks with preeclampsia without severe features. Has had 3 doses of cytotec but still needs further cervical ripening. Category I monitor strip. Plan: Mckeon catheter placed through the cervical os and bulb filled with 30 ml saline. Start pitocin per protocol. Continue to monitor closely.
[2020-02-11] MEDS: Lactated Ringers 1,000 ML IV SCH ×3 (08:53→18:50)
[2020-02-11] MEDS ORDERED: Oxytocin/Lactated Ringers 10 UNIT/1,000 ML BAG IV SCH (09:00)
--- NOTE | 2020-02-11 12:52 | PCM.PNLD ---
Labor Progress Note - VS & Meds Vital Signs: Last Vital Signs Temp 36.1 C 02/10/20 19:29 Pulse 85 02/10/20 19:29 Resp 16 02/10/20 19:29 BP 143/84 H 02/10/20 19:29 Pulse Ox 98 02/10/20 19:29 Active Medications: Current Medications Calcium Carbonate/Glycine (Tums) 1,000 mg PO Q2H PRN PRN Reason: Indigestion Diphenhydramine HCl (Benadryl) 25 mg IVPUSH Q6H PRN PRN Reason: pruritis Ephedrine Sulfate (Ephedrine Sulfate) 5 mg IVPUSH ASDIRECTED PRN PRN Reason: Hypotension Famotidine (Pepcid) 20 mg PO Q12H PRN PRN Reason: Heartburn Fentanyl (Sublimaze) 100 mcg EPIDUR Q3H PRN PRN Reason: Pain Fentanyl/Bupivacaine HCl (Fentanyl/Bupivacaine/Ns 2 Mcg-0.125% 100 Ml) 100 ml EPIDUR ASDIRECTED PRN PRN Reason: Pain Hydroxyzine HCl (Atarax) 25 mg PO BEDTIME JAISON Last Admin: 02/10/20 22:47 Dose: 25 mg Documented by: Oxytocin/Lactated Ringer's (Pitocin In Lr 10 Units/1,000 Ml) 10 unit in 1,000 mls @ 500 mls/hr IV .CONTINUOUS JAISON Lactated Ringer's (Ringers, Lactated) 1,000 mls @ 100 mls/hr IV ASDIRECTED JAISON Last Admin: 02/11/20 08:53 Dose: 100 mls/hr Documented by: Oxytocin/Lactated Ringer's (Pitocin In Lr 10 Units/1,000 Ml) 10 unit in 1,000 mls @ 12 mls/hr IV TITRATE JAISON; Protocol Last Admin: 02/11/20 09:00 Dose: 2 munits/min, 12 mls/hr Documented by: Levothyroxine Sodium (Levothyroxine) 75 mcg PO ACBREAKFAST JAISON Last Admin: 02/11/20 06:18 Dose: 75 mcg Documented by: Nalbuphine HCl (Nubain) 10 mg IVPUSH Q2H PRN PRN Reason: Pain Oxycodone HCl (Oxycodone) 5 mg PO Q6H PRN PRN Reason: pain Last Admin: 02/11/20 05:04 Dose: 5 mg Documented by: Promethazine HCl (Phenergan) 25 mg IM Q6H PRN PRN Reason: Nausea Sodium Chloride (Saline Flush) 10 ml FLUSH ASDIRECTED PRN PRN Reason: Keep Vein Open Discontinued Medications Lidocaine HCl (Xylocaine 1%) 20 ml INJECT ONETIME ONE Stop: 02/10/20 19:29 Misoprostol (Cytotec) 25 mcg VAG Q4H JAISON Stop: 02/11/20 03:46 Last Admin: 02/11/20 03:54 Dose: 25 mcg Documented by: Misoprostol (Cytotec) Confirm Administered Dose 25 mcg .ROUTE .STK-MED ONE Stop: 02/10/20 19:54 Last Admin: 02/10/20 22:48 Dose: Not Given Documented by: Ondansetron HCl (Zofran) 4 mg IVPUSH Q4H PRN PRN Reason: Nausea/Vomiting - Uterine Contractions Uterine Monitoring Mode: External [place] Contraction Frequency (min): q2 Contraction Duration (sec): 60 Contraction Intensity: Moderate Uterine Resting Tone: Soft - Monitoring Monitor Mode: External Ultrasound Heart Rate (FHR) Baseline: 150 Heart Rate (FHR) Variability: Moderate (6-25 bmp) Accelerations: Present, 15x15 Decelerations: None Strip Review: Category I - Vaginal Exam Dilation (cm): 1 cm Effacement (Percent): 30% Station: -2 Cervical Position: Posterior Sterile Vaginal Exam Performed By: Dr. Guzman Vaginal Exam Comment: Patient not examined again now since mckeon is still in place - Labor Progress (Free Text) Labor Progress: Patient is complaining of lower abdominal pain and pelvic pressure with contractions at 6/10. Currently at 10 mU/min pitocin. Membranes intact. Category I monitor strip. BP has been stable 130-140/80-90's. Plan - continue current plan and increase pitocin as needed. Proceed with epidural per patient request. Plan to perform AROM once mckeon is out and cx at least 3 cm.
[2020-02-11] MEDS: Bupivacaine/fentaNYL/NS 100 ML Bag EPIDUR PRN ×2 (12:59→19:51)
[2020-02-11] MEDS: Oxytocin/Lactated Ringers 10 UNIT/1,000 ML BAG IV SCH (22:53)
[2020-02-11] MEDS ORDERED: fentaNYL 100 MCG/2 ML SDV ONE (23:04)
[2020-02-11] MEDS ORDERED: Misoprostol 200 MCG Tab ONE ×2 (23:38→23:45)
[2020-02-11] MEDS ORDERED: Lidocaine 1% 50 ML MDV ONE (23:40)
[2020-02-11] MEDS ORDERED: fentaNYL 100 MCG/2 ML SDV IVPUSH ONE (23:40)
[2020-02-12] MEDS ORDERED: Bupivacaine 0.25% 10 ML SDV ONE
[2020-02-12] MEDS ORDERED: Lidocaine 1.5% with EPINEPHrine 1:200,000 5 ML Amp ONE
[2020-02-12] MEDS ORDERED: Ondansetron 4 MG/2 ML SDV IVPUSH ONE (00:15)
[2020-02-12] MEDS ORDERED: Ondansetron 4 MG/2 ML SDV ONE (00:16)
--- NOTE | 2020-02-12 00:26 | PCM.SN.2 ---
- Free Text/Narrative Note: Called by nurse at the request of Dr. Guzman with approximately 45 minutes since delivery and placenta still in place. Manual extraction attempted by Dr. Guzman without success. Minimal bleeding. Anesthesia present and did bolus epidural. Patient had received 50 mcg fentanyl prior to my arrival. Under sterile technique pressure put on cord with hand in vagina and placenta delivered via manual extraction. Appears intact. One small suspicious area. Bimanual exploration of uterus preformed x2. No remaining placenta fragments. Somewhat boggy so cytotec x 600 mcg given buccally. Antibiotic dose x1 will be given.
--- NOTE | 2020-02-12 01:01 | PCM.DEL ---
L & D Note - General Info Date of Service: 02/11/20 Mother's Due Date: 02/29/20 - Delivery Note Labor: Induced by Oxytocin Cervical Ripening Method: Balloon Device, Misoprostil Delivery Outcome: Livebirth Infant Delivery Method: Spontaneous Vaginal Delivery-Single Delivery Mode: Vacuum Extraction Presentation: Left Occiput Anterior (STACIA) Nuchal Cord: Present (1 loop, easily reduced), Reduced Prep: Povidone-Iodine (Betadine Anesthesia Type: Epidural Amniotic Fluid Description: Clear Episiotomy Type: None Laceration: 2nd Degree Suture type: Vicryl Suture size: 3-0 Placenta: Manual Removal (Placenta had not at 30 minutes after delivery, so manual removal was attempted and did not feel that I was able to totally separate it. She was given 50 mcg IV Fentanyl prior to the procedure. Dr. Wood, OB airline lounge receptionist was called to come in an evaluate. When she came in, she was able to manually extract the placenta and it appeared to be complete. There was an area that looked like it had infarcted, in a wedge shape.) Cord: 3 Vessels Estimated Blood Loss: 800 Resuscitation Needed: No [place]: Suctioned, Stimulated, Warmed, Zachary Used, Warmer Used Provider: Ilene Guzman Score 1 min: 7 Score 5 min: 9 Post Delivery Events: Retained Placenta Delivery Comments (Free Text/Narrative):: 29 yo at 37+2 weeks gestation admitted for induction of labor due to preeclampsia. She has had a positive urine protein to creatinine ratio and she has had bp running in the 135-145/80-95 range, but recently have been mostly 130/80's. She has a history of hypertension prior to the but we were able to stop her medicine during the . WE have been seeing her twice weekly for BPP and NST and also weekly labs and they have all been stable. EFW at last BPP on 02/04/20 was 7 lb 5 oz. She also has hypothyroidism and is on l evothyroxine 75 mcg daily and thyroid hormone levels have been normal. She has a history of anxiety and has been on escitalopram during her . She has a history of asthma but has not had problems with her breathing recently. She has had some reflux and was having upper abdominal pain that has resolved with Pepcid 20 mg bid. She developed an infected pilonidal cyst that was very painful and had I&D in the OR with Dr. Mcallister on 02/04/20. She is doing twice daily packing changes at home and only has pain with the packing and no purulent drainage or redness at the site. Denies fever. Denies cough, sore throat or SOB. labs reveal blood type A +, antibody screen neg, infectious disease screening negative. She had tetra screen that was low risk for DS, T18 and OSB. 1 hour glucola was wnl at 82 and GBS test is negative. She has had mild anemia and has been taking iron. Platelet count has been normal, liver enzymes normal. She denies having contractions. She is having a girl on ultrasound. She is not sure about breast or bottle feeding. She had her Tdap and influenza vaccines. She was given 3 doses of vaginal cytotec 25 mcg q4h overnight on 02/10/20 to . By 8 am, cervix 1 cm dilated, 30% effaced, station -2 and she was having irregular contractions that were mild and lasting 60 seconds. 16 Fr Mckeon catheter passed through the cervical os with speculum visualization. The bulb was filled with 30 ml of saline. Pitocin induction was started per protocol. She did receive an epidural about 1345 and had good relief with that. The mckeon bulb came out at 1500 and was 5 cm dilated at that time. I examined her at 1620 and performed AROM to augment labor. She was still 5 cm dilated, 50% effaced and station -2. Fluid was clear. She progressed well and by 2099 was complete. I was called in and we had her start pushing at 5. Fetus tolerated second stage of labor. After 75 minutes of pushing, patient was very fatigued and was not cooperating with pushing and not pushing effectively. She requested that we use vacuum to assist. I explained to her possible complications of vacuum including scalp abrasion, bruising, cephalohematoma and intracranial bleed. She still wanted the vacuum to be used and her consented. At 2235, the Kiwi vacuum was applied, suction set in the green zone and I pulled as patient pushed. With the second set of pushes, the head delivered from STACIA presentation. There were no pop offs. There was 1 loop of nuchal cord that slipped over baby's head and then the shoulders and the rest of the baby delivered without difficulty. Time of delivery was 2238 and it was a baby girl. She was dried and stimulated and placed on mother's abdomen. Mouth and nose were suctioned with bulb suction. Further drying and stimulation performed. After about 1 minute, the cord was clamped and cut and [facility] She was DeLee suctioned and 10 ml removed. She started crying and tone improved . Oxygen saturation was checked and was 96%. She received some percussion to help her clear out her lungs. She was tachypneic, but not in distress. She was swaddled and brought to Mom to hold. Pitocin infusion was started after baby delivered. Traction applied to the cord and noted to be 3 vessels in the cord. By 2299, the placenta had not and I decided to attempt manual extraction. I had patient bolus her epidural and gave 50 mcg fentanyl IV prior to procedure. I was able to get partial separation of the placenta, but it felt like there was still a part attached and I was not able to get a good plane to get separation. Patient was having severe pain with the procedure. After about 10 minutes, I stopped and had the nurses call Dr. Wood, OB airline lounge receptionist, come in to evaluate and assist. I did also have anesthesia come in and rebolus her epidural to hopefully get her more comfortable for the procedure. Dr. Ortiz arrived by 2329 and was able to ma nually extract the placenta. The placenta appeared to be complete, but there was noted to be a wedge shaped infarction. The cord appeared normal with 3 vessels. The uterus seemed to contract and firm down, but we did give her buccal cytotec to help with uterine tone. Patient had a 2nd degree laceration that was repaired with 3-0 vicryl in the usual manner after delivery of the placenta. There was a y-shaped laceration in the vagina. Patient's bp dropped to 80 systolic after the repair was complete and she was given 5 mg of ephedrine IV. She still had IV fluids running. BP improved to 90/60 and then 116/70. She did get nauseated and vomit and then she felt better. Both Mom and baby were left in the delivery room in stable condition. Induction Criteria - Marques Score Marques Score Dilation: Closed Marques Score Effacement: 0-30% Marques Score Infant's Station: -2 Marques Score Consistency: Firm Marques Score Cervix Position: Posterior Marques Score Total: 1 Marques Score Presenting Part: Reports: Cephalic - Induction Gestational Age >/= 39 wks: No Medical Indication: preeclampsia Estimated Pelvis: Reports: Adequate Reassuring Monitoring Strip: Yes Absence of Tachy Systole: Yes - Augmentation Estimated Pelvis: Reports: Adequate Weight Estimated:: Reports: AGA Reassuring Monitoring Strip: Yes Absence of Tachy Systole: Yes Vacuum Extractor Progress Note - Alternative Labor Strategies Considered Strategies Considered:: Reports: Contraction Intensity Adequate Indications Considered:: Reports: Yes Indications:: Reports: Shortening of 2nd Stage for Maternal Benefit Comments:: Patient was exhausted and was not cooperating with pushing despite verbal encouragement. She requested vacuum to assist several times. I felt that she was not pushing effectively due to exhaustion after 75 minutes of pushing. - Patient Prepared Patient Prepared:: Reports: Yes Informed Consent:: Reports: Verbal Risks: Reports: Yes Risks Include:: Reports: Laceration, Maternal Injury, Other (infant bruising, scalp laceration and cephalohematoma or intracranial bleed) Anesthesia/Analgesia Adequate:: Reports: Yes - Probability of Success High Probability of Success:: Reports: Yes Weight Estimated:: Reports: AGA Patient Diabetic:: Reports: No Pelvis Adequate:: Reports: Yes Asynclitic:: Reports: No Station:: +2 - Application Time Maximum Application Time & Number of Pop-Offs Predetermined:: Reports: Yes Maximum Pressure Maintained in Green Zone (cm Hg):: 20 (Maintained in green zone) Total Application Time (min): *max=20min: 4 Number of Times Cup Disengaged:: 0 Type of Vacuum Used:: Reports: Low profile (Kiwi vacuum) Vacuum Extraction: Successful - Exit Strategy Exit strategy available:: Reports: Yes and resuscitation teams readily available:: Reports: Yes - General Info Date of Service: 02/11/20 Admission Dx/Problem (Free Text): Patient Status Order with Admit Dx/Problem 02/10/20 19:29 Patient Status [ADT] Routine Admission Diagnosis/Problem Admission Diagnosis/Problem Functional Status: Reports: Pain Controlled, Tolerating Diet - Review of Systems General: Reports: Fatigue HEENT: Reports: No Symptoms Pulmonary: Reports: No Symptoms Cardiovascular: Reports: No Symptoms Gastrointestinal: Reports: No Symptoms Genitourinary: Reports: No Symptoms Musculoskeletal: Reports: Back Pain Skin: Reports: No Symptoms Neurological: Reports: No Symptoms Psychiatric: Reports: No Symptoms - Patient Data Vitals - Most Recent: Last Vital Signs Temp 36.1 C 02/10/20 19:29 Pulse 78 02/11/20 21:27 Resp 16 02/10/20 19:29 BP 139/77 02/11/20 21:27 Pulse Ox 100 02/11/20 13:19 Weight - Most Recent: 90.356 kg I&O - Last 24 Hours: Intake & Output 02/11/20 02/11/20 02/12/20 14:59 22:59 06:59 Intake Total 1120 520 Balance 1120 520 Med Orders - Current: Current Medications Calcium Carbonate/Glycine (Tums) 1,000 mg PO Q2H PRN PRN Reason: Indigestion Diphenhydramine HCl (Benadryl) 25 mg IVPUSH Q6H PRN PRN Reason: pruritis Ephedrine Sulfate (Ephedrine Sulfate) 5 mg IVPUSH ASDIRECTED PRN PRN Reason: Hypotension Famotidine (Pepcid) 20 mg PO Q12H PRN PRN Reason: Heartburn Fentanyl (Sublimaze) 100 mcg EPIDUR Q3H PRN PRN Reason: Pain Last Admin: 02/11/20 12:59 Dose: 100 mcg Documented by: Fentanyl/Bupivacaine HCl (Fentanyl/Bupivacaine/Ns 2 Mcg-0.125% 100 Ml) 100 ml EPIDUR ASDIRECTED PRN PRN Reason: Pain Last Admin: 02/11/20 19:51 Dose: 100 ml Documented by: Hydroxyzine HCl (Atarax) 25 mg PO BEDTIME JAISON Last Admin: 02/10/20 22:47 Dose: 25 mg Documented by: Oxytocin/Lactated Ringer's (Pitocin In Lr 10 Units/1,000 Ml) 10 unit in 1,000 mls @ 500 mls/hr IV .CONTINUOUS JAISON Last Admin: 02/11/20 22:53 Dose: 500 mls/hr Documented by: Lactated Ringer's (Ringers, Lactated) 1,000 mls @ 100 mls/hr IV ASDIRECTED JAISON Last Admin: 02/11/20 18:50 Dose: 100 mls/hr Documented by: Oxytocin/Lactated Ringer's (Pitocin In Lr 10 Units/1,000 Ml) 10 unit in 1,000 mls @ 12 mls/hr IV TITRATE JAISON; Protocol Last Titration: 02/11/20 22:20 Dose: 15 munits/min, 90 mls/hr Documented by: Levothyroxine Sodium (Levothyroxine) 75 mcg PO ACBREAKFAST JAISON Last Admin: 02/11/20 06:18 Dose: 75 mcg Documented by: Misoprostol (Cytotec) 600 mcg .XX ONETIME ONE Stop: 02/12/20 23:46 Nalbuphine HCl (Nubain) 10 mg IVPUSH Q2H PRN PRN Reason: Pain Oxycodone HCl (Oxycodone) 5 mg PO Q6H PRN PRN Reason: pain Last Admin: 02/11/20 05:04 Dose: 5 mg Documented by: Promethazine HCl (Phenergan) 25 mg IM Q6H PRN PRN Reason: Nausea Last Admin: 02/11/20 20:19 Dose: 25 mg Documented by: Sodium Chloride (Saline Flush) 10 ml FLUSH ASDIRECTED PRN PRN Reason: Keep Vein Open Discontinued Medications Fentanyl (Sublimaze) Confirm Administered Dose 100 mcg .ROUTE .STK-MED ONE Stop: 02/11/20 23:05 Lidocaine HCl (Xylocaine 1%) 20 ml INJECT ONETIME ONE Stop: 02/10/20 19:29 Lidocaine HCl (Xylocaine 1%) Confirm Administered Dose 50 ml .ROUTE .STK-MED ONE Stop: 02/11/20 23:41 Misoprostol (Cytotec) 25 mcg VAG Q4H JAISON Stop: 02/11/20 03:46 Last Admin: 02/11/20 03:54 Dose: 25 mcg Documented by: Misoprostol (Cytotec) Confirm Administered Dose 25 mcg .ROUTE .STK-MED ONE Stop: 02/10/20 19:54 Last Admin: 02/10/20 22:48 Dose: Not Given Documented by: Misoprostol (Cytotec) Confirm Administered Dose 200 mcg .ROUTE .STK-MED ONE Stop: 02/11/20 23:39 Ondansetron HCl (Zofran) 4 mg IVPUSH Q4H PRN PRN Reason: Nausea/Vomiting Ondansetron HCl (Zofran) Confirm Administered Dose 4 mg .ROUTE .STK-MED ONE Stop: 02/12/20 00:17 - Exam General: Alert, Oriented, No Acute Distress, Other (fatigued) HEENT: Pupils Equal, Mucous Membr. Moist/Bell [place] Neck: Supple, Trachea Midline Lungs: Normal Respiratory Effort Cardiovascular: Regular Rate, Regular Rhythm GI/Abdominal Exam: Soft (Female) Exam: Vaginal Bleeding Back Exam: Normal Inspection, Full Range of Motion Extremities: Normal Inspection, Pedal Edema Skin: Warm, Dry, Intact Neurological: No New Focal Deficit Psy/Mental Status: Alert, Normal Affect, Normal Mood - Problem List & Annotations (1) 37 weeks gestation of SNOMED Code(s): 05070010 Code(s): Z3A.37 - 37 WEEKS GESTATION OF Status: Acute Current Visit: Yes (2) Preeclampsia SNOMED Code(s): 229395653 Code(s): O14.90 - UNSPECIFIED PRE-ECLAMPSIA, UNSPECIFIED TRIMESTER Status: Acute Current Visit: Yes (3) Anxiety SNOMED Code(s): 36212275 Code(s): F41.9 - ANXIETY DISORDER, UNSPECIFIED Status: Acute Current Visit: Yes (4) Asthma SNOMED Code(s): 269349893 Code(s): J45.909 - UNSPECIFIED ASTHMA, UNCOMPLICATED Status: Acute Current Visit: Yes (5) Encounter for planned induction of labor SNOMED Code(s): 997137121 Code(s): Z34.90 - ENCNTR FOR SUPRVSN OF NORMAL , UNSP, UNSP TRIMESTER Status: Acute Current Visit: Yes (6) Hypothyroidism SNOMED Code(s): 16985252 Code(s): E03.9 - HYPOTHYROIDISM, UNSPECIFIED Status: Acute Current Visit: No Qualifiers: Hypothyroidism type: unspecified Qualified Code(s): E03.9 - Hypothyroidism, unspecified (7) Vacuum extraction, delivered, current hospitalization SNOMED Code(s): 606275104 Code(s): O66.5 - ATTEMPTED APPLICATION OF VACUUM EXTRACTOR AND FORCEPS Status: Acute Current Visit: Yes - Problem List Review Problem List Initiated/Reviewed/Updated: Yes - My Orders Last 24 Hours: My Active Orders 02/11/20 03:15 Urinary Catheter Insertion [Insert Urinary Catheter] [OM.PC] Q24H 02/11/20 06:00 Levothyroxine 75 mcg PO ACBREAKFAST 02/11/20 09:00 Oxytocin/Lactated Ringers [Pitocin in LR 10 Units/1,000 ML] 10 unit in 1,000 ml IV TITRATE 02/12/20 00:31 Patient Status Manage Transfer [TRANSFER] Routine 02/12/20 23:45 miSOPROStoL [Cytotec] 600 mcg .XX ONETIME ONE - Assessment Assessment:: 29 yo G1 now P1 at 37+3 weeks gestation admitted for induction of labor due to preeclampsia without severe features. Delivered by vacuum extraction due to maternal exhaustion and no longer pushing effectively. Patient requested vacuum and risks discussed with patient and her and they still wanted to proceed. Vacuum performed without difficulty. 2 sets of pushing with the vaccum and no pop offs. Retained placenta that required manual extraction and had to call Dr. Wood in to assist with the manual extraction as I was not able to get it to separate. EBL was 800 ml and she was given cytotec buccally after placenta delivered. Fundus has been firm and light bleeding noted. She did drop her bp to 80 systolic about 30 minutes after procedure and did receive ephedrine. She wants to try to breastfeed initially to get baby colostrum but would prefer bottle feeding. Hypothyroidism Asthma s/p I&D of infected pilonidal cyst Anxiety - Plan Plan:: 29 yo female at 37+2 weeks gestation admitted for induction of labor due to preeclampsia. She has not had any severe features. BPP on 02/04/20 scored 8/8 with EFW 7 lb 5 oz and PABLO of 10.6. Cervix is not favorable at this time, so cytotec 25 mcg tablet will be placed pv and repeated up to 3 doses. Labs done tonight. Will monitor closely. Pilonidal cyst with abscess and s/p I&D in the OR on 02/04/20 and is healing well, no sign of infection at this time. Twice daily packing changes with a dose of oxycodone 5 mg prior to procedure. Hypothyroidism - stable on 75 mcg daily. Anxiety - has done well on Lexapro 10 mg daily. Asthma - mild and stable, no flares during her . Mild anemia - has been taking her vitami and iron supplement. 02/12/20: - received pitocin infusion and buccal cytotec due to retained placenta requiring manual extraction. Placenta appeared to be intact on inspection. Monitor for vaginal bleeding. EBL was 800 ml. Will check CBC in am, continue PNV and iron bid. Will send placenta to pathology - appeared to have a wedge shaped infarction. Preeclampsia - monitor closely for preeclampsia with severe features. Repeat CBC and CMP in am - wants to get baby colostrum but would prefer bottle feeding. Hypothyroidism - continue current dose and will follow up thyroid labs in clinic. Anxiety - continue lexapro 10 mg daily and monitor for depression. s/p I&D of infected pilonidal cyst on 02/04/20 - continue BID packing and usually will take oxycodone 5 mg about 30 minutes prior to packing.
[2020-02-12] MEDS: Lactated Ringers 1,000 ML IV SCH (03:14)
[2020-02-12] MEDS: Oxytocin/Lactated Ringers 10 UNIT/1,000 ML BAG IV SCH (03:15)
[2020-02-12] MEDS ORDERED: Benzocaine/Menthol 20%-0.5% Spray 56 GM Canister TOP PRN (04:51)
[2020-02-12] MEDS ORDERED: Docusate Sodium 100 MG Cap PO PRN (04:51)
[2020-02-12] MEDS ORDERED: Acetaminophen 325 MG Tab PO PRN (04:51)
[2020-02-12] MEDS ORDERED: Witch Hazel Medicated Pads 40/Jar TOP PRN (04:51)
[2020-02-12] MEDS: Ferrous Sulfate 324 MG Tab.EC PO SCH ×2 (07:15→18:41)
[2020-02-12] MEDS: Levothyroxine 75 MCG Tab PO SCH (07:15)
[2020-02-12] MEDS: hydrOXYzine HCl 25 MG Tab PO SCH (07:26)
[2020-02-12] MEDS: oxyCODONE 5 MG Tab PO PRN ×2 (07:49→19:59)
[2020-02-12] MEDS: Prenatal Multivitamin with Calcium/Folic Acid/Iron Tab PO SCH ×2 (07:50→08:00)
[2020-02-12] MEDS: Ibuprofen 800 MG Tab PO PRN ×2 (10:49→18:47)
[2020-02-12] MEDS ORDERED: ceFAZolin 2 GM in Premix Bag 1 BAG IV ONE (12:05)
--- NOTE | 2020-02-12 14:15 | PCM.PNPP ---
- General Info Date of Service: 02/12/20 Admission Dx/Problem (Free Text): Patient Status Order with Admit Dx/Problem 02/10/20 19:29 Patient Status [ADT] Routine Admission Diagnosis/Problem Admission Diagnosis/Problem Subjective Update: Patient is feeling well, no nausea and denies dizziness. Denies headache. She is feeling sore all over and pain in lower back. Pilonidal cyst surgical site packed this am by patient's . She had oxycodone prior to packing change, otherwise is using ibuprofen. Bleeding is slowing, no clots. She was given 2 grams of IV ancef this am to lower risk of infection after manual extraction of placenta. Blood pressure has been running 130's/80's. Hgb this am is down to 8.2. Mood is happy. Functional Status: Reports: Pain Controlled, Tolerating Diet, Ambulating, Urinating - Review of Systems General: Reports: No Symptoms HEENT: Reports: No Symptoms Pulmonary: Reports: No Symptoms Cardiovascular: Reports: No Symptoms Gastrointestinal: Reports: No Symptoms Genitourinary: Reports: No Symptoms Musculoskeletal: Reports: Back Pain Skin: Reports: No Symptoms Neurological: Reports: No Symptoms Psychiatric: Reports: No Symptoms - General Info Date of Service: 02/12/20 - Patient Data Vital Signs - Most Recent: Last Vital Signs Temp 36.7 C 02/12/20 07:48 Pulse 84 02/12/20 07:48 Resp 18 02/12/20 07:48 BP 138/85 02/12/20 07:48 Pulse Ox 93 L 02/12/20 07:48 Weight - Most Recent: 90.356 kg I&O - Last 24 Hours: Intake & Output 02/11/20 02/12/20 02/12/20 22:59 06:59 14:59 Intake Total 520 120 Balance 520 120 Lab Results - Last 24 Hours: Laboratory Results - last 24 hr 02/12/20 02/12/20 Range/Units 06:04 06:04 WBC 15.85 H (3.98-10.04) K/mm3 RBC 2.62 L (3.98-5.22) M/mm3 Hgb 8.2 L D (11.2-15.7) gm/dl Hct 25.5 L (34.1-44.9) % MCV 97.3 H (79.4-94.8) fl MCH 31.3 (25.6-32.2) pg MCHC 32.2 (32.2-35.5) g/dl RDW Std Deviation 44.9 (36.4-46.3) fL Plt Count 264 (182-369) K/mm3 MPV 10.1 (9.4-12.3) fl Sodium 137 (136-145) mEq/L Potassium 3.5 (3.5-5.1) mEq/L Chloride 105 (98-107) mEq/L Carbon Dioxide 24 (21-32) mEq/L Anion Gap 11.5 (5-15) BUN 8 (7-18) mg/dL Creatinine 0.8 (0.55-1.02) mg/dL Est Cr Clr Drug Dosing 92.53 mL/min Estimated GFR (MDRD) > 60 (>60) mL/min BUN/Creatinine Ratio 10.0 L (14-18) Glucose 95 (74-106) mg/dL Calcium 7.9 L (8.5-10.1) mg/dL Total Bilirubin 0.4 (0.2-1.0) mg/dL AST 35 (15-37) U/L ALT 31 (14-59) U/L Alkaline Phosphatase 104 (46-116) U/L Total Protein 5.1 L (6.4-8.2) g/dl Albumin 1.8 L (3.4-5.0) g/dl Globulin 3.3 gm/dL Albumin/Globulin Ratio 0.6 L (1-2) Micro Results - Last 24 Hours: Microbiology 02/10/20 19:55 Urine Culture - Final Urine, Voided MIXED LARY SUGGESTIVE OF CONTAMINATION. Med Orders - Current: Current Medications Acetaminophen (Tylenol) 650 mg PO Q4H PRN PRN Reason: mild pain or fever Benzocaine/Menthol (Dermoplast Pain Relief Gibbs) 0 gm TOP ASDIRECTED PRN PRN Reason: Perineal Comfort Measure Last Admin: 02/12/20 05:17 Dose: 1 canister Documented by: Docusate Sodium (Colace) 100 mg PO BID PRN PRN Reason: Constipation Ephedrine Sulfate (Ephedrine Sulfate) 5 mg IVPUSH ASDIRECTED PRN PRN Reason: Hypotension Last Admin: 02/12/20 00:07 Dose: 5 mg Documented by: Ferrous Sulfate (Ferrous Sulfate) 324 mg PO BIDMEALS [facility] Last Admin: 02/12/20 07:15 Dose: 324 mg Documented by: Ibuprofen (Motrin) 800 mg PO Q6H PRN PRN Reason: Mild pain or fever Last Admin: 02/12/20 10:49 Dose: 800 mg Documented by: Levothyroxine Sodium (Levothyroxine) 75 mcg PO ACBREAKFAST [facility] Last Admin: 02/12/20 07:15 Dose: 75 mcg Documented by: Oxycodone HCl (Oxycodone) 5 mg PO Q6H PRN PRN Reason: pain Last Admin: 02/12/20 07:49 Dose: 5 mg Documented by: Prenat Multivit/[place]/Iron/Folic Ac ( Plus Iron) 1 each PO DAILY [facility] Last Admin: 02/12/20 08:00 Dose: Not Given Documented by: Promethazine HCl (Phenergan) 25 mg IM Q6H PRN PRN Reason: Nausea Last Admin: 02/11/20 20:19 Dose: 25 mg Documented by: Harshal Patten (Rust) 1 pad TOP ASDIRECTED PRN PRN Reason: Perineal Comfort Measure Last Admin: 02/12/20 05:17 Dose: 1 canister Documented by: Discontinued Medications Bupivacaine HCl (Sensorcaine-Mpf 0.25%) 10 ml .ROUTE .STK-MED ONE Stop: 02/12/20 00:01 Calcium Carbonate/Glycine (Tums) 1,000 mg PO Q2H PRN PRN Reason: Indigestion Diphenhydramine HCl (Benadryl) 25 mg IVPUSH Q6H PRN PRN Reason: pruritis Famotidine (Pepcid) 20 mg PO Q12H PRN PRN Reason: Heartburn Fentanyl (Sublimaze) 100 mcg EPIDUR Q3H PRN PRN Reason: Pain Last Admin: 02/11/20 12:59 Dose: 100 mcg Documented by: Fentanyl (Sublimaze) Confirm Administered Dose 100 mcg .ROUTE .STK-MED ONE Stop: 02/11/20 23:05 Last Admin: 02/12/20 07:26 Dose: Not Given Documented by: Fentanyl (Sublimaze) 50 mcg IVPUSH ONETIME ONE Stop: 02/11/20 23:41 Last Admin: 02/11/20 23:40 Dose: 50 mcg Documented by: Fentanyl/Bupivacaine HCl (Fentanyl/Bupivacaine/Ns 2 Mcg-0.125% 100 Ml) 100 ml EPIDUR ASDIRECTED PRN PRN Reason: Pain Last Admin: 02/11/20 19:51 Dose: 100 ml Documented by: Hydroxyzine HCl (Atarax) 25 mg PO BEDTIME JAISON Last Admin: 02/12/20 07:26 Dose: Not Given Documented by: Oxytocin/Lactated Ringer's (Pitocin In Lr 10 Units/1,000 Ml) 10 unit in 1,000 mls @ 500 mls/hr IV .CONTINUOUS JAISON Last Admin: 02/12/20 03:15 Dose: 500 mls/hr Documented by: Lactated Ringer's (Ringers, Lactated) 1,000 mls @ 100 mls/hr IV ASDIRECTED JAISON Last Admin: 02/12/20 03:14 Dose: 100 mls/hr Documented by: Oxytocin/Lactated Ringer's (Pitocin In Lr 10 Units/1,000 Ml) 10 unit in 1,000 mls @ 12 mls/hr IV TITRATE JAISON; Protocol Last Titration: 02/11/20 22:20 Dose: 15 munits/min, 90 mls/hr Documented by: Cefazolin Sodium/Dextrose 2 gm (/ Premix) 50 mls @ 100 mls/hr IV ONETIME ONE Stop: 02/12/20 12:34 Last Admin: 02/12/20 12:18 Dose: 100 mls/hr Documented by: Lidocaine HCl (Xylocaine 1%) 20 ml INJECT ONETIME ONE Stop: 02/10/20 19:29 Lidocaine HCl (Xylocaine 1%) Confirm Administered Dose 50 ml .ROUTE .STK-MED ONE Stop: 02/11/20 23:41 Last Admin: 02/12/20 02:06 Dose: Not Given Documented by: Lidocaine/Epinephrine (Xylocaine-Mpf 1.5% W/Epinephrine 1:200,000) 10 ml .ROUTE .STK-MED ONE Stop: 02/12/20 00:01 Misoprostol (Cytotec) 25 mcg VAG Q4H JAISON Stop: 02/11/20 03:46 Last Admin: 02/11/20 03:54 Dose: 25 mcg Documented by: Misoprostol (Cytotec) Confirm Administered Dose 25 mcg .ROUTE .STK-MED ONE Stop: 02/10/20 19:54 Last Admin: 02/10/20 22:48 Dose: Not Given Documented by: Misoprostol (Cytotec) Confirm Administered Dose 200 mcg .ROUTE .STK-MED ONE Stop: 02/11/20 23:39 Last Admin: 02/12/20 01:53 Dose: Not Given Documented by: Misoprostol (Cytotec) 600 mcg .XX ONETIME ONE Stop: 02/11/20 23:46 Last Admin: 02/11/20 23:45 Dose: 600 mcg Documented by: Nalbuphine HCl (Nubain) 10 mg IVPUSH Q2H PRN PRN Reason: Pain Ondansetron HCl (Zofran) 4 mg IVPUSH Q4H PRN PRN Reason: Nausea/Vomiting Ondansetron HCl (Zofran) Confirm Administered Dose 4 mg .ROUTE .STK-MED ONE Stop: 02/12/20 00:17 Last Admin: 02/12/20 01:59 Dose: Not Given Documented by: Ondansetron HCl (Zofran) 4 mg IVPUSH ONETIME ONE Stop: 02/12/20 00:16 Last Admin: 02/12/20 00:17 Dose: 4 mg Documented by: Sodium Chloride (Saline Flush) 10 ml FLUSH ASDIRECTED PRN PRN Reason: Keep Vein Open - Infant Interaction Disposition, : at Bedside Interaction: Holding Feeding: Attempted ; Nursed Fair/Poor, Bottle Fed Support Person: - Recovery Exam Fundal Tone: Firm Fundal Level: 2 Fingerbreadths Below Umbilicus Fundal Placement: Midline Lochia Amount: Small Lochia Color: Rubra/Red Perineum Description: Edematous Episiotomy/Laceration: Approximated Bladder Status: Voiding Urinary Elimination: Voided - Exam General: Alert, Oriented, Cooperative, No Acute Distress HEENT: Pupils Equal, Mucous Membr. Moist/[place] Neck: Supple Lungs: Normal Respiratory Effort Cardiovascular: Regular Rate, Regular Rhythm GI/Abdominal Exam: Normal Bowel Sounds, Soft Extremities: Pedal Edema Skin: Warm, Dry, Intact Wound/Incisions: Healing Well Neurological: No New Focal Deficit Psy/Mental Status: Alert, Normal Affect, Normal Mood - Problem List & Annotations (1) 37 weeks gestation of SNOMED Code(s): 11725013 Code(s): Z3A.37 - 37 WEEKS GESTATION OF Status: Acute Current Visit: Yes (2) Preeclampsia SNOMED Code(s): 938583596 Code(s): O14.90 - UNSPECIFIED PRE-ECLAMPSIA, UNSPECIFIED TRIMESTER Status: Acute Current Visit: Yes (3) Anxiety SNOMED Code(s): 47510157 Code(s): F41.9 - ANXIETY DISORDER, UNSPECIFIED Status: Acute Current Visit: Yes (4) Asthma SNOMED Code(s): 969510804 Code(s): J45.909 - UNSPECIFIED ASTHMA, UNCOMPLICATED Status: Acute Current Visit: Yes (5) Encounter for planned induction of labor SNOMED Code(s): 675357937 Code(s): Z34.90 - ENCNTR FOR SUPRVSN OF NORMAL , UNSP, UNSP TRIMEST ER Status: Acute Current Visit: Yes (6) Hypothyroidism SNOMED Code(s): 54913235 Code(s): E03.9 - HYPOTHYROIDISM, UNSPECIFIED Status: Acute Current Visit: No Qualifiers: Hypothyroidism type: unspecified Qualified Code(s): E03.9 - Hypothyroidism, unspecified (7) Vacuum extraction, delivered, current hospitalization SNOMED Code(s): 719428806 Code(s): O66.5 - ATTEMPTED APPLICATION OF VACUUM EXTRACTOR AND FORCEPS Status: Acute Current Visit: Yes (8) Retained placenta or membranes without hemorrhage SNOMED Code(s): 757390921 Code(s): O73.0 - RETAINED PLACENTA WITHOUT HEMORRHAGE Status: Acute Current Visit: Yes - Problem List Review Problem List Initiated/Reviewed/Updated: Yes - My Orders Last 24 Hours: My Active Orders 02/12/20 04:51 Acetaminophen [Tylenol] 650 mg PO Q4H PRN Benzocaine/Menthol [Dermoplast Pain Relief Gibbs] See Dose Instructions TOP ASDIRECTED PRN Docusate Sodium [Colace] 100 mg PO BID PRN Ibuprofen [Motrin] 800 mg PO Q6H PRN witch Alice [Tucks] 1 pad TOP ASDIRECTED PRN Heat Therapy [OM.PC] PRN 02/12/20 04:51 Patient Status [ADT] Routine Activity as Tolerated [RC] PER UNIT ROUTINE May Shower [RC] ASDIRECTED Notify Provider Vital Signs [RC] ASDIRECTED Up ad Effie [RC] ASDIRECTED Vital Signs [RC] 03,09,15,21 Assess Lochia [WOMSER] Per Unit Routine Assess Uterine Involution [WOMSER] Per Unit Routine Breast Pump [WOMSER] Per Unit Routine Medication Administration Instruction [OM.PC] Routine Perineal Care [OM.PC] Per Unit Routine Sitz Bath [OM.PC] Per Unit Routine 02/12/20 07:00 Ferrous Sulfate 324 mg PO BIDMEALS 02/12/20 09:00 Vit with Ca/FA/Iron [ Plus Iron] 1 each PO DAILY 02/13/20 04:51 Heat Therapy [OM.PC] PRN - Assessment Assessment:: 29 yo G1 now P1 at 37+3 weeks gestation admitted for induction of labor due to preeclampsia without severe features. Delivered by vacuum extraction due to maternal exhaustion and no longer pushing effectively. Patient requested vacuum and risks discussed with patient and her and they still wanted to proceed. Vacuum performed without difficulty. 2 sets of pushing with the vaccum and no pop offs. Retained placenta that required manual extraction and had to call Dr. Wood in to assist with the manual extraction as I was not able to get it to separate. EBL was 800 ml and she was given cytotec buccally after placenta delivered. Fundus has been firm and light bleeding noted. She did drop her bp to 80 systolic about 30 minutes after procedure and did receive ephedrine. She wants to try to breastfeed initially to get baby colostrum but would prefer bottle feeding. Hypothyroidism Asthma s/p I&D of infected pilonidal cyst Anxiety Day #1 02/12/20 Vaginal delivery with vacuum assist, second degree perineal laceration. Using ibuprofen and had 5 mg oxycodone prior to packing of I&D site. Retained placenta with manual extraction - Hgb this am is down to 8.2, but patient is asymptomatic. Bleeding is light, no clots Attempting but plans to bottle feed. Anxiety - stable on lexapro 10 mg daily. s/p I&D of infected pilonidal cyst - packing done this am. - Plan Plan:: 29 yo female at 37+2 weeks gestation admitted for induction of labor due to preeclampsia. She has not had any severe features. BPP on 02/04/20 scored 8/8 with EFW 7 lb 5 oz and PABLO of 10.6. Cervix is not favorable at this time, so cytotec 25 mcg tablet will be placed pv and repeated up to 3 doses. Labs done tonight. Will monitor closely. Pilonidal cyst with abscess and s/p I&D in the OR on 02/04/20 and is healing well, no sign of infection at this time. Twice daily packing changes with a dose of oxycodone 5 mg prior to procedure. Hypothyroidism - stable on 75 mcg daily. Anxiety - has done well on Lexapro 10 mg daily. Asthma - mild and stable, no flares during her . Mild anemia - has been taking her vitami and iron supplement. 02/12/20: 0200 - received pitocin infusion and buccal cytotec due to retained placenta requiring manual extraction. Placenta appeared to be intact on inspection. Monitor for vaginal bleeding. EBL was 800 ml. Will check CBC in am, continue PNV and iron bid. Will send placenta to pathology - appeared to have a wedge shaped infarction. Preeclampsia - monitor closely for preeclampsia with severe features. Repeat CBC and CMP in am - wants to get baby colostrum but would prefer bottle feeding. Hypothyroidism - continue current dose and will follow up thyroid labs in clinic. Anxiety - continue lexapro 10 mg daily and monitor for depression. s/p I&D of infected pilonidal cyst on 02/04/20 - continue BID packing and usually will take oxycodone 5 mg about 30 minutes prior to packing. 02/12/20 1300: - continue routine care REtained placenta with manual extraction - she was given 2 grams Ancef IV this am to prevent infection after that procedure. Monitor for heavy bleeding that could indicate still some tissue retained. Preeclampsia - continue to monitor bp Repeat CBC and CMP in am. Will need to continue bp monitoring when she goes home and follow up in the clinic next week. BF - showed her how to manually express colostrum and will continue to assist with getting baby to latch as patient requests. s/p I&D of infected pilonidal cyst - continue BID packing and oxycodone prior to procedure.
[2020-02-13] MEDS: Levothyroxine 75 MCG Tab PO SCH (05:48)
[2020-02-13] MEDS: oxyCODONE 5 MG Tab PO PRN (05:48)
[2020-02-13] MEDS: Ibuprofen 800 MG Tab PO PRN (09:47)
[2020-02-13] MEDS: Prenatal Multivitamin with Calcium/Folic Acid/Iron Tab PO SCH (09:47)
[2020-02-13 13:19] VITALS: BP 127/81; PULSE 85
[2020-02-13] MEDS: Ferrous Sulfate 324 MG Tab.EC PO SCH (13:22)
--- NOTE | 2020-02-13 21:27 | PCM.DCSUM1 ---
Discharge Summary - Hospital Course Free Text/Narrative:: 29 yo at 37+2 weeks gestation admitted for induction of labor due to preeclampsia. She has had a positive urine protein to creatinine ratio and she has had bp running in the 135-145/80-95 range, but recently have been mostly 130/80's. She has a history of hypertension prior to the but we were able to stop her medicine during the . WE have been seeing her twice weekly for BPP and NST and also weekly labs and they have all been stable. EFW at last BPP on 02/04/20 was 7 lb 5 oz. She also has hypothyroidism and is on levothyroxine 75 mcg daily and thyroid hormone levels have been normal. She has a history of anxiety and has been on escitalopram during her . She has a history of asthma but has not had problems with her breathing recently. She has had some reflux and was having upper abdominal pain that has resolved with Pepcid 20 mg bid. She developed an infected pilonidal cyst that was very painful and had I&D in the OR with Dr. Mcallister on 02/04/20. She is doing twice daily packing changes at home and only has pain with the packing and no purulent drainage or redness at the site. Denies fever. Denies cough, sore throat or SOB. labs reveal blood type A +, antibody screen neg, infectious disease screening negative. She had tetra screen that was low risk for DS, T18 and OSB. 1 hour glucola was wnl at 82 and GBS test is negative. She has had mild anemia and has been taking iron. Platelet count has been normal, liver enzymes normal. She denies having contractions. She is having a girl on ultrasound. She is not sure about breast or bottle feeding. She had her Tdap and influenza va ccines. She was given 3 doses of vaginal cytotec 25 mcg q4h overnight on 02/10/20 to 02/11/20. By 8 am, cervix 1 cm dilated, 30% effaced, station -2 and she was having irregular contractions that were mild and lasting 60 seconds. 16 Fr Mckeon catheter passed through the cervical os with speculum visualization. The bulb was filled with 30 ml of saline. Pitocin induction was started per protocol. She did receive an epidural about 1345 and had good relief with that. The mckeon bulb came out at 1500 and was 5 cm dilated at that time. I examined her at 1620 and performed AROM to augment labor. She was still 5 cm dilated, 50% effaced and station -2. Fluid was clear. She progressed well and by 2099 was complete. I was called in and we had her start pushing at 2114. Fetus tolerated second stage of labor. After 75 minutes of pushing, patient was very fatigued and was not cooperating with pushing and not pushing effectively. She requested that we use vacuum to assist. I explained to her possible complications of vacuum including scalp abrasion, bruising, cephalohematoma and intracranial bleed. She still wanted the vacuum to be used and her consented. At 2234, the Kiwi vacuum was applied, suction set in the green zone and I pulled as patient pushed. With the second set of pushes, the head delivered from STACIA presentation. There were no pop offs. There was 1 loop of nuchal cord that slipped over baby's head and then the shoulders and the rest of the baby delivered without difficulty. Time of delivery was 2238 and it was a baby girl. She was dried and stimulated and placed on mother's abdomen. Mouth and nose were suctioned with bulb suction. Further drying and stimulation performed. After about 1 minute, the cord was clamped and cut and baby was brought to the [facility] warmer. She was DeLee suctioned and 10 ml removed. She started crying and tone improved . Oxygen saturation was checked and was 96%. She received some percussion to help her clear out her lungs. She was tachypneic, but not in distress. She was swaddled and brought to Mom to hold. Pitocin infusion was started after baby delivered. Traction applied to the cord and noted to be 3 vessels in the cord. By 2299, the placenta had not and I decided to attempt manual extraction. I had patient bolus her epidural and gave 50 mcg fentanyl IV prior to procedure. I was able to get partial separation of the placenta, but it felt like there was still a part attached and I was not able to get a good plane to get separation. Patient was having severe pain with the procedure. After about 10 minutes, I stopped and had the nurses call Dr. Wood, OB semiconductor processing group leader, come in to evaluate and assist. I did also have anesthesia come in and rebolus her epidural to hopefully get her more comfortable for the procedure. Dr. Ortiz arrived by 2330 and was able to manually extract the placenta. The placenta appeared to be complete, but there was noted to be a wedge shaped infarction. The cord appeared normal with 3 vessels. The uterus seemed to contract and firm down, but we did give her buccal cytotec to help with uterine tone. Patient had a 2nd degree laceration that was repaired with 3-0 vicryl in the usual manner after delivery of the placenta. There was a y-shaped laceration in the vagina. Patient's bp dropped to 80 systolic after the repair was complete and she was given 5 mg of ephedrine IV. She still had IV fluids running. BP improved to 90/60 and then 116/70. She did get nauseated and vomit and then she felt better. Both Mom and baby were left in the delivery room in stable condition. She has done well , bleeding has been moderate, no clots. Hgb dropped to 8.2 but she is asymptomatic. BP has been stable in the 130/80 range and PIH labs stable. She has been doing some to provide some colostrum for baby but has also been bottle feeding with formula. Mood has been stable. Diagnosis: Stroke: No Modified Julian Scale: No Symptoms at All Modified Julian Scale Score: 0 - Discharge Data Discharge Date: 02/13/20 Discharge Disposition: Home, Self-Care 01 Condition: Good - Referral to Home Health Primary Care Physician: Ilene Guzman MD - Discharge Diagnosis/Problem(s) (1) 37 weeks gestation of SNOMED Code(s): 92171499 ICD Code: Z3A.37 - 37 WEEKS GESTATION OF Status: Acute (2) Preeclampsia SNOMED Code(s): 926300432 ICD Code: O14.90 - UNSPECIFIED PRE-ECLAMPSIA, UNSPECIFIED TRIMESTER Status: Acute (3) Anxiety SNOMED Code(s): 95594076 ICD Code: F41.9 - ANXIETY DISORDER, UNSPECIFIED Status: Acute (4) Asthma SNOMED Code(s): 259380739 ICD Code: J45.909 - UNSPECIFIED ASTHMA, UNCOMPLICATED Status: Acute (5) Encounter for planned induction of labor SNOMED Code(s): 976937858 ICD Code: Z34.90 - ENCNTR FOR SUPRVSN OF NORMAL , UNSP, UNSP TRIMESTER Status: Acute (6) Hypothyroidism SNOMED Code(s): 55288416 ICD Code: E03.9 - HYPOTHYROIDISM, UNSPECIFIED Status: Acute Qualifiers: Hypothyroidism type: unspecified Qualified Code(s): E03.9 - Hypothyroidism, unspecified (7) Vacuum extraction, delivered, current hospitalization SNOMED Code(s): 006262540 ICD Code: O66.5 - ATTEMPTED APPLICATION OF VACUUM EXTRACTOR AND FORCEPS Status: Acute (8) Retained placenta or membranes without hemorrhage SNOMED Code(s): 693174356 ICD Code: O73.0 - RETAINED PLACENTA WITHOUT HEMORRHAGE Status: Acute - Patient Instructions Diet: Usual Diet as Tolerated Activity: As Tolerated, No Lifting Over 10 Pounds Activity, Other: No intercourse for 6 weeks Driving: May Drive Today Showering/Bathing: May Shower Notify Provider of: Fever, Increased Pain, Swelling and Redness, Drainage, Nausea and/or Vomiting - Discharge Plan *PRESCRIPTION DRUG MONITORING PROGRAM REVIEWED*: Yes *COPY OF PRESCRIPTION DRUG MONITORING REPORT IN PATIENT SPEEDY: No Home Medications: Home Meds Escitalopram Oxalate [Lexapro] 10 mg PO DAILY 01/11/20 [History] Ferrous Sulfate [Iron] 325 mg PO DAILY 01/11/20 [History] Levothyroxine 75 mcg PO ACBREAKFAST 01/11/20 [History] No122/Iron/Folic Acid [ Multi Tablet] 1 each PO DAILY 01/11/20 [History] oxyCODONE 5 mg PO Q4H PRN #30 tab 02/04/20 [Rx] Albuterol [Ventolin HFA] 2 puff INH Q4H PRN 02/10/20 [History] Cholecalciferol (Vitamin D3) [Vitamin D3] 5,000 unit PO DAILY 02/10/20 [History] Acetaminophen [Tylenol] 650 mg PO Q4H PRN tablet 02/13/20 [Rx] Benzocaine/Menthol [Dermoplast Pain Relief [place]] 1 applic TOP ASDIRECTED PRN canister 02/13/20 [Rx] Docusate Sodium [Colace] 100 mg PO BID PRN cap 02/13/20 [Rx] Ibuprofen [Motrin] 800 mg PO Q6H PRN tablet 02/13/20 [Rx] witch Earline [Tucks] 1 pad TOP ASDIRECTED PRN pad 02/13/20 [Rx] Oxygen Therapy Mode: Room Air Patient Handouts: Hemorrhage, Baby Blues, Hypertension, Care After Vaginal Delivery Referrals: Ilene Guzman MD [Primary Care Provider] - - Discharge Summary/Plan Comment DC Time >30 min.: No Discharge Summary/Plan Comment: 29 yo G1 now P1 induced at 37+2 weeks gestation for preeclampsia. Vaginal Cytotec was used for cervical ripening x 3 doses and then mckeon bulb with pitocin induction and AROM to augment. Baby tolerated 1st and second stages of labor. Patient pushed for about 75 minutes and then was exhausted and no longer pushing effectively and was requesting vacuum extraction. We discussed potential complications with the vacuum, but both she and her verbally consented. Kiwi vacuum was applied and baby delivered with second set of pushes and there were not any pop offs. AThere was 1 loop of nuchal cord that was reduced after delivery of the head. Placenta did not deliver spontaneously after 30 minutes of gentle traction on the cord. Manual extraction was then performed after rebolusing her epidural and giving 50 mcg of fentanyl IV. I was unable to get it totally separate so I consulted Dr. Wood, OB semiconductor processing group leader, and she came in and was able to complete the manual extraction. She was given buccal cytotec after procedure in addition to pitocin IV infusion to help uterus contract. EBL 800 ml. She was given 2 grams of Ancef IV in the am. She has not been showing any signs of infection. Pain controlled with ibuprofen. She has done well , bleeding stable. She has been attempting some and also bottle feeding with formula. bp's have been stable at 120-135/80's and PIH labs stable. She has continued BID packing of her sacral wound from I&D of pilonidal cyst. Plan: - continue routine cares. Second degree perineal laceration. Manual extraction of placenta - continue to monitor for increased bleeding that could suggest retained products and watch for signs of infection. Placenta sent for pathology. Continue PNV and BID iron supplement due to anemia. Preeclampsia - she is feeling well, bp stable. Continue BID bp monitoring and record numbers. Notify me if symptoms of severe preeclampsia. S/P I&D of pilonidal cyst - continue BID packing with oxycodone 5 mg before procedure. Hypothyroidism - continue current dose of levothyroxine and will plan to check thyroid labs at 6 week check. Anxiety - continue lexapro 10 mg daily and follow up. Asthma - stable and asymptomatic. - General Info Date of Service: 02/13/20 Admission Dx/Problem (Free Text: Patient Status Order with Admit Dx/Problem 02/10/20 19:29 Patient Status [ADT] Routine Admission Diagnosis/Problem Admission Diagnosis/Problem Subjective Update: Patient is feeling well, no nausea and denies dizziness. Denies headache. She is feeling sore all over and pain in lower back. Pilonidal cyst surgical site packed this am by patient's . She had oxycodone prior to packing change, otherwise is using ibuprofen. Bleeding is slowing, no clots. She was given 2 grams of IV ancef this am to lower risk of infection after manual extraction of placenta. Blood pressure has been running 130's/80's. Hgb this am is down to 8.2. Mood is happy. 02/13/20 - she continues to do well, ambulating. BP has been stable and labs stable this am. K+ has improved. She has been able to get baby to latch and nurse a couple of times. Bleeding is stable. Still having lower back pain. Functional Status: Reports: Pain Controlled, Tolerating Diet, Ambulating, Urinating - Review of Systems General: Reports: No Symptoms HEENT: Reports: No Symptoms Pulmonary: Reports: No Symptoms Cardiovascular: Reports: Edema Gastrointestinal: Reports: No Symptoms Genitourinary: Reports: No Symptoms Musculoskeletal: Reports: Back Pain Skin: Reports: No Symptoms Neurological: Reports: No Symptoms Psychiatric: Reports: No Symptoms - Patient Data Vitals - Most Recent: Last Vital Signs Temp 36.9 C 02/13/20 09:32 Pulse 85 02/13/20 09:32 Resp 14 02/13/20 09:32 BP 127/81 02/13/20 09:32 Pulse Ox 95 02/13/20 09:32 Weight - Most Recent: 90.356 kg I&O - Last 24 hours: Intake & Output 02/13/20 02/13/20 02/13/20 06:59 14:59 22:59 Intake Total 240 Balance 240 Lab Results - Last 24 hrs: Laboratory Results - last 24 hr 02/13/20 02/13/20 Range/Units 05:34 05:34 WBC 10.80 H (3.98-10.04) K/mm3 RBC 2.69 L (3.98-5.22) M/mm3 Hgb 8.5 L (11.2-15.7) gm/dl Hct 26.8 L (34.1-44.9) % MCV 99.6 H (79.4-94.8) fl MCH 31.6 (25.6-32.2) pg MCHC 31.7 L (32.2-35.5) g/dl RDW Std Deviation 46.9 H (36.4-46.3) fL Plt Count 265 (182-369) K/mm3 MPV 10.0 (9.4-12.3) fl Sodium 142 (136-145) mEq/L Potassium 3.7 (3.5-5.1) mEq/L Chloride 107 (98-107) mEq/L Carbon Dioxide 28 (21-32) mEq/L Anion Gap 10.7 (5-15) BUN 8 (7-18) mg/dL Creatinine 0.7 (0.55-1.02) mg/dL Est Cr Clr Drug Dosing 105.74 mL/min Estimated GFR (MDRD) > 60 (>60) mL/min BUN/Creatinine Ratio 11.4 L (14-18) Glucose 88 (74-106) mg/dL Calcium 8.2 L (8.5-10.1) mg/dL Total Bilirubin 0.2 (0.2-1.0) mg/dL AST 31 (15-37) U/L ALT 35 (14-59) U/L Alkaline Phosphatase 111 (46-116) U/L Total Protein 6.1 L (6.4-8.2) g/dl Albumin 2.2 L (3.4-5.0) g/dl Globulin 3.9 gm/dL Albumin/Globulin Ratio 0.6 L (1-2) Med Orders - Current: Current Medications Discontinued Medications Acetaminophen (Tylenol) 650 mg PO Q4H PRN PRN Reason: mild pain or fever Benzocaine/Menthol (Dermoplast Pain Relief [place]) 0 gm TOP ASDIRECTED PRN PRN Reason: Perineal Comfort Measure Last Admin: 02/12/20 05:17 Dose: 1 canister Documented by: Bupivacaine HCl (Sensorcaine-Mpf 0.25%) 10 ml .ROUTE .STK-MED ONE Stop: 02/12/20 00:01 Calcium Carbonate/Glycine (Tums) 1,000 mg PO Q2H PRN PRN Reason: Indigestion Diphenhydramine HCl (Benadryl) 25 mg IVPUSH Q6H PRN PRN Reason: pruritis Docusate Sodium (Colace) 100 mg PO BID PRN PRN Reason: Constipation Ephedrine Sulfate (Ephedrine Sulfate) 5 mg IVPUSH ASDIRECTED PRN PRN Reason: Hypotension Last Admin: 02/12/20 00:07 Dose: 5 mg Documented by: Famotidine (Pepcid) 20 mg PO Q12H PRN PRN Reason: Heartburn Fentanyl (Sublimaze) 100 mcg EPIDUR Q3H PRN PRN Reason: Pain Last Admin: 02/11/20 12:59 Dose: 100 mcg Documented by: Fentanyl (Sublimaze) Confirm Administered Dose 100 mcg .ROUTE .STK-MED ONE Stop: 02/11/20 23:05 Last Admin: 02/12/20 07:26 Dose: Not Given Documented by: Fentanyl (Sublimaze) 50 mcg IVPUSH ONETIME ONE Stop: 02/11/20 23:41 Last Admin: 02/11/20 23:40 Dose: 50 mcg Documented by: Fentanyl/Bupivacaine HCl (Fentanyl/Bupivacaine/Ns 2 Mcg-0.125% 100 Ml) 100 ml EPIDUR ASDIRECTED PRN PRN Reason: Pain Last Admin: 02/11/20 19:51 Dose: 100 ml Documented by: Ferrous Sulfate (Ferrous Sulfate) 324 mg PO BIDMEALS [facility] Last Admin: 02/13/20 13:22 Dose: Not Given Documented by: Hydroxyzine HCl (Atarax) 25 mg PO BEDTIME [facility] Last Admin: 02/12/20 07:26 Dose: Not Given Documented by: Oxytocin/Lactated Ringer's (Pitocin In Lr 10 Units/1,000 Ml) 10 unit in 1,000 mls @ 500 mls/hr IV .CONTINUOUS JAISON Last Admin: 02/12/20 03:15 Dose: 500 mls/hr Documented by: Lactated Ringer's (Ringers, Lactated) 1,000 mls @ 100 mls/hr IV ASDIRECTED [facility] Last Admin: 02/12/20 03:14 Dose: 100 mls/hr Documented by: Oxytocin/Lactated Ringer's (Pitocin In Lr 10 Units/1,000 Ml) 10 unit in 1,000 mls @ 12 mls/hr IV TITRATE JAISON; Protocol Last Titration: 02/11/20 22:20 Dose: 15 munits/min, 90 mls/hr Documented by: Cefazolin Sodium/Dextrose 2 gm (/ Premix) 50 mls @ 100 mls/hr IV ONETIME ONE Stop: 02/12/20 12:34 Last Admin: 02/12/20 12:18 Dose: 100 mls/hr Documented by: Ibuprofen (Motrin) 800 mg PO Q6H PRN PRN Reason: Mild pain or fever Last Admin: 02/13/20 09:47 Dose: 800 mg Documented by: Levothyroxine Sodium (Levothyroxine) 75 mcg PO ACBREAKFAST JAISON Last Admin: 02/13/20 05:48 Dose: 75 mcg Documented by: Lidocaine HCl (Xylocaine 1%) 20 ml INJECT ONETIME ONE Stop: 02/10/20 19:29 Lidocaine HCl (Xylocaine 1%) Confirm Administered Dose 50 ml .ROUTE .STK-MED ONE Stop: 02/11/20 23:41 Last Admin: 02/12/20 02:06 Dose: Not Given Documented by: Lidocaine/Epinephrine (Xylocaine-Mpf 1.5% W/Epinephrine 1:200,000) 10 ml .ROUTE .STK-MED ONE Stop: 02/12/20 00:01 Misoprostol (Cytotec) 25 mcg VAG Q4H JAISON Stop: 02/11/20 03:46 Last Admin: 02/11/20 03:54 Dose: 25 mcg Documented by: Misoprostol (Cytotec) Confirm Administered Dose 25 mcg .ROUTE .STK-MED ONE Stop: 02/10/20 19:54 Last Admin: 02/10/20 22:48 Dose: Not Given Documented by: Misoprostol (Cytotec) Confirm Administered Dose 200 mcg .ROUTE .STK-MED ONE Stop: 02/11/20 23:39 Last Admin: 02/12/20 01:53 Dose: Not Given Documented by: Misoprostol (Cytotec) 600 mcg .XX ONETIME ONE Stop: 02/11/20 23:46 Last Admin: 02/11/20 23:45 Dose: 600 mcg Documented by: Nalbuphine HCl (Nubain) 10 mg IVPUSH Q2H PRN PRN Reason: Pain Ondansetron HCl (Zofran) 4 mg IVPUSH Q4H PRN PRN Reason: Nausea/Vomiting Ondansetron HCl (Zofran) Confirm Administered Dose 4 mg .ROUTE .STK-MED ONE Stop: 02/12/20 00:17 Last Admin: 02/12/20 01:59 Dose: Not Given Documented by: Ondansetron HCl (Zofran) 4 mg IVPUSH ONETIME ONE Stop: 02/12/20 00:16 Last Admin: 02/12/20 00:17 Dose: 4 mg Documented by: Oxycodone HCl (Oxycodone) 5 mg PO Q6H PRN PRN Reason: pain Last Admin: 02/13/20 05:48 Dose: 5 mg Documented by: Prenat Multivit/Winside/Iron/Folic Ac ( Plus Iron) 1 each PO DAILY JAISON Last Admin: 02/13/20 09:47 Dose: 1 each Documented by: Promethazine HCl (Phenergan) 25 mg IM Q6H PRN PRN Reason: Nausea Last Admin: 02/11/20 20:19 Dose: 25 mg Documented by: Sodium Chloride (Saline Flush) 10 ml FLUSH ASDIRECTED PRN PRN Reason: Keep Vein Open Witch Earline (Tucks) 1 pad TOP ASDIRECTED PRN PRN Reason: Perineal Comfort Measure Last Admin: 02/12/20 05:17 Dose: 1 canister Documented by: - Exam General: Reports: Alert, Oriented, No Acute Distress HEENT: Reports: Pupils Equal, Pupils Reactive, EOMI, Mucous Membr. Moist/War Neck: Reports: Supple Lungs: Reports: Normal Respiratory Effort Cardiovascular: Reports: Regular Rate, Regular Rhythm GI/Abdominal Exam: Normal Bowel Sounds (Female) Exam: Enlarged Uterus (2 fingers below U), Vaginal Bleeding Rectal (Female) Exam: Deferred Back Exam: Reports: Normal Inspection, Full Range of Motion, Other (Mild tenderness over epidural site. Tender along lumbar paraspinal muscles.) Extremities: Pedal Edema Skin: Reports: Warm, Dry, Intact Wound/Incisions: Reports: Healing Well, Dressing Dry and Intact (sacral wound packed, no odor or drainage) Neurological: Reports: Reflexes Equal Bilateral (reflexes brisk) Psy/Mental Status: Reports: Alert, Normal Affect, Normal Mood
== END 2020-02-13 11:50 | disposition home or self-care (01) | DRG 541 ==
LOC: JD.OB 18:53 → OBSVTOIN 22:39 → JD.OB 02-11 22:40
PROVIDERS: ADMIT Family Medicine; ATTEND Family Medicine
PROC: 10D07Z6 Extraction of Products of Conception, Vacuum, Via Natural or Artificial Opening (ICD-10-PCS; principal; 2020-02-11)
PROC: 10907ZC Drainage of Amniotic Fluid, Therapeutic from Products of Conception, Via Natural or Artificial Opening (ICD-10-PCS; 2020-02-11)
PROC: 3E0P7VZ Introduction of Hormone into Female Reproductive, Via Natural or Artificial Opening (ICD-10-PCS; 2020-02-11)
PROC: 0U7C7ZZ Dilation of Cervix, Via Natural or Artificial Opening (ICD-10-PCS; 2020-02-11)
PROC: 0KQM0ZZ Repair Perineum Muscle, Open Approach (ICD-10-PCS; 2020-02-11)
PROC: 10D17Z9 Manual Extraction of Products of Conception, Retained, Via Natural or Artificial Opening (ICD-10-PCS; 2020-02-11)
PROC: 3E0R3BZ Introduction of Anesthetic Agent into Spinal Canal, Percutaneous Approach (ICD-10-PCS; 2020-02-11)
DX: O14.04 Mild to moderate pre-eclampsia, complicating childbirth (principal); Z3A.37 37 weeks gestation of pregnancy; Z37.0 Single live birth; O75.81 Maternal exhaustion complicating labor and delivery; O99.52 Diseases of the respiratory system complicating childbirth; J45.909 Unspecified asthma, uncomplicated; O99.344 Other mental disorders complicating childbirth; F41.9 Anxiety disorder, unspecified; Z11.59 Encounter for screening for other viral diseases; O99.284 Endocrine, nutritional and metabolic diseases complicating childbirth; E03.9 Hypothyroidism, unspecified; O66.5 Attempted application of vacuum extractor and forceps; O73.0 Retained placenta without hemorrhage; O70.1 Second degree perineal laceration during delivery; Z79.82 Long term (current) use of aspirin; Z79.890 Hormone replacement therapy
CPT/HCPCS: 36415; 51702; 59025; 59409; 80053; 81001; 85027; 85610; 85730; 86592; 87086; A9270-GY; J0690; J2405; J2550; J2590; J3010; J3490; J7120; U0002

== ENCOUNTER 2020-02-25 18:08 | Emergency (ER) | payer BC ==
[2020-02-25 18:18] VITALS: BP 130/82; PULSE 70
--- NOTE | 2020-02-25 20:52 | US ---
Pelvic ultrasound: Multiple real-time images were obtained transabdominally. Uterus slightly generous in size. Endometrial thickness at 1.4 cm. No discrete myometrial abnormality is appreciated. Right ovary not well seen. Left ovary appears within normal limits. No free fluid is seen. Measurements: Uterus: Length 12.0 cm, AP height 5.2 cm,transverse width 7.4 cm Left ovary: 3.0 x 1.5 x 3.3 cm Impression: 1. Slightly generous size of the uterus. No focal myometrial abnormality or endometrial thickening is seen. 2. Normal-appearing left ovary. 3. Nonvisualized right ovary. Diagnostic code #2 This report was dictated in MDT
[2020-02-25] MEDS ORDERED: Ondansetron 4 MG/2 ML SDV IVPUSH ONE (21:07)
[2020-02-25] MEDS ORDERED: HYDROmorphone 0.5 MG/0.5 ML Syringe IVPUSH ONE (21:07)
[2020-02-25] MEDS ORDERED: Sodium Chloride 0.9% 1,000 ML IV SCH (21:15)
--- NOTE | 2020-02-25 21:42 | EDM.PDOC ---
ED HPI GENERAL MEDICAL PROBLEM - General Chief Complaint: Abdominal Pain Stated Complaint: L SIDE PELVIC PAIN/ 2 WEEKS Time Seen by Provider: 02/25/20 18:15 Source of Information: Reports: Patient History Limitations: Reports: No Limitations - History of Present Illness INITIAL COMMENTS - FREE TEXT/NARRATIVE: Patient is a 29-year-old female who presents to the emergency department with complaints of left low pelvic pain. She states that this evening she was in the shower when she had abrupt onset of sharp stabbing pain left of her suprapubic area. Patient is 2 weeks and states she did have retained placenta after , however they were able to manually retrieve it. She has had a light lochia . She describes it as like a normal menstrual period. The bleeding did not increase with the onset of pain. She got slightly nauseous, but did not vomit. She took a oxycodone that she had at home which did improve the pain slightly. She denies any fever, chills, vomiting, or diarrhea. Her bowel movements have been regular. Left Lower Abdomen Pain Score (Numeric/FACES): 7 - Related Data Allergies Allergy/AdvReac Type Severity Reaction Status Date / Time No Known Allergies Allergy Verified 02/25/20 18:18 Home Meds: Home Meds Escitalopram Oxalate [Lexapro] 10 mg PO DAILY 01/11/20 [History] Ferrous Sulfate [Iron] 325 mg PO DAILY 01/11/20 [History] Levothyroxine 75 mcg PO ACBREAKFAST 01/11/20 [History] No122/Iron/Folic Acid [ Multi Tablet] 1 each PO DAILY 01/11/20 [History] oxyCODONE 5 mg PO Q4H PRN #30 tab 02/04/20 [Rx] Albuterol [Ventolin HFA] 2 puff INH Q4H PRN 02/10/20 [History] Cholecalciferol (Vitamin D3) [Vitamin D3] 5,000 unit PO DAILY 02/10/20 [History] Acetaminophen [Tylenol] 650 mg PO Q4H PRN tablet 02/13/20 [Rx] Docusate Sodium [Colace] 100 mg PO BID PRN cap 02/13/20 [Rx] Ibuprofen [Motrin] 800 mg PO Q6H PRN tablet 02/13/20 [Rx] Past Medical History - Past Health History Medical/Surgical History: Denies Medical/Surgical History HEENT History: Reports: Other (See Below) Other HEENT History: Wears glasses Cardiovascular History: Reports: Hypertension Other Cardiovascular History: Sinus tachycardia Respiratory History: Reports: Asthma Gastrointestinal History: Reports: Chronic Constipation, GERD, Irritable Bowel Syndrome Genitourinary History: Reports: None 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 low amniotic fluid Neurological History: Reports: Other (See Below) Other Neuro History: night terrors Psychiatric History: Reports: ADHD Other Psychiatric History: Night terrors Endocrine/Metabolic History: Reports: Hypothyroidism, Vitamin D Deficiency Hematologic History: Reports: Anemia Immunologic History: Reports: None Oncologic (Cancer) History: Reports: None Dermatologic History: Reports: None - Infectious Disease History Infectious Disease History: Reports: None - Past Surgical History HEENT Surgical History: Reports: Oral Surgery, Tonsillectomy Musculoskeletal Surgical History: Reports: Other (See Below) Other Musculoskeletal Surgeries/Procedures:: Right wrist cyst removal, sacral pilonidal cyst removal Social & Family History - Family History Family Medical History: Noncontributory - Tobacco Use Smoking Status *Q: Never Smoker - Caffeine Use Caffeine Use: Reports: Coffee - Recreational Drug Use Recreational Drug Use: No ED ROS GENERAL - Review of Systems Review Of Systems: See Below Constitutional: Reports: No Symptoms. Denies: Fever, Chills, Weakness HEENT: Reports: No Symptoms Respiratory: Reports: No Symptoms Cardiovascular: Reports: No Symptoms Endocrine: Reports: No Symptoms GI/Abdominal: Reports: Nausea. Denies: Vomiting : Reports: Pain (Left pelvic pain) Musculoskeletal: Reports: No Symptoms Skin: Reports: No Symptoms Neurological: Reports: No Symptoms Psychiatric: Reports: No Symptoms Hematologic/Lymphatic: Reports: No Symptoms Immunologic: Reports: No Symptoms ED EXAM, GI/ABD - Physical Exam Exam: See Below Exam Limited By: No Limitations General Appearance: Alert, WD/WN, No Apparent Distress Respiratory/Chest: No Respiratory Distress, Lungs Clear, Normal Breath Sounds, No Accessory Muscle Use, Chest Non-Tender Cardiovascular: Normal Peripheral Pulses, Regular Rate, Rhythm, No Edema, No Gallop, No JVD, No Murmur, No Rub GI/Abdominal Exam: Other (left low pelvic pain. Tender to palpation) Neurological: Alert, Oriented, CN II-XII Intact, Normal Cognition, Normal Gait, Normal Reflexes, No Motor/Sensory Deficits Psychiatric: Normal Affect, Normal Mood Skin Exam: Warm, Dry, Intact, Normal Color, No Rash Course - Vital Signs Last Recorded V/S: Last Vital Signs Temp 98.1 F 02/25/20 18:15 Pulse 70 02/25/20 18:15 Resp 16 02/25/20 18:15 BP 130/82 02/25/20 18:15 Pulse Ox 95 02/25/20 18:15 - Orders/Labs/Meds Orders: Active Orders 24 hr Category Date Time Status Abdomen Pelvis w Cont [CT] Stat Exams 02/25/20 21:07 Taken CULTURE URINE [RM] Stat Lab 02/25/20 21:55 Received Sodium Chloride 0.9% [Normal Saline] 1,000 ml Med 02/25/20 21:15 Active IV ASDIRECTED Sodium Chloride 0.9% [Saline Flush] Med 02/25/20 22:06 Active 10 ml FLUSH ONETIME PRN Medication Orders Sodium Chloride (Normal Saline) 1,000 mls @ 150 mls/hr IV ASDIRECTED JAISON Last Admin: 02/25/20 21:51 Dose: 150 mls/hr Documented by: SHILPI Sodium Chloride (Saline Flush) 10 ml FLUSH ONETIME PRN PRN Reason: Keep Vein Open Last Admin: 02/25/20 22:33 Dose: 10 ml Documented by: RADHA Labs: Laboratory Tests 02/25/20 02/25/20 02/25/20 Range/Units 19:20 19:20 21:55 WBC 10.48 H (3.98-10.04) K/mm3 RBC 3.21 L (3.98-5.22) M/mm3 Hgb 9.9 L (11.2-15.7) gm/dl Hct 31.5 L (34.1-44.9) % MCV 98.1 H (79.4-94.8) fl MCH 30.8 (25.6-32.2) pg MCHC 31.4 L (32.2-35.5) g/dl RDW Std Deviation 45.1 (36.4-46.3) fL Plt Count 362 D (182-369) K/mm3 MPV 9.1 L (9.4-12.3) fl Neut % (Auto) 74.2 H (34.0-71.1) % Lymph % (Auto) 18.9 L (19.3-51.7) % [place] % (Auto) 4.9 (4.7-12.5) % Eos % (Auto) 1.3 (0.7-5.8) Baso % (Auto) 0.5 (0.1-1.2) % Neut # (Auto) 7.78 H (1.56-6.13) K/mm3 Lymph # (Auto) 1.98 (1.18-3.74) K/mm3 [place] # (Auto) 0.51 H (0.24-0.36) K/mm3 Eos # (Auto) 0.14 (0.04-0.36) K/mm3 Baso # (Auto) 0.05 (0.01-0.08) K/mm3 Manual Slide Review Abnormal smear Sodium 141 (136-145) mEq/L Potassium 4.1 (3.5-5.1) mEq/L Chloride 103 (98-107) mEq/L Carbon Dioxide 25 (21-32) mEq/L Anion Gap 17.1 H (5-15) BUN 15 (7-18) mg/dL Creatinine 0.8 (0.55-1.02) mg/dL Est Cr Clr Drug Dosing 92.53 mL/min Estimated GFR (MDRD) > 60 (>60) mL/min BUN/Creatinine Ratio 18.8 H (14-18) Glucose 92 (74-106) mg/dL Calcium 9.1 (8.5-10.1) mg/dL Total Bilirubin 0.1 L (0.2-1.0) mg/dL AST 15 (15-37) U/L ALT 23 (14-59) U/L Alkaline Phosphatase 94 (46-116) U/L C-Reactive Protein 0.4 (<1.0) mg/dL Total Protein 7.0 (6.4-8.2) g/dl Albumin 3.4 (3.4-5.0) g/dl Globulin 3.6 gm/dL Albumin/Globulin Ratio 0.9 L (1-2) Urine Color Yellow (Yellow) Urine Appearance Slt cloudy H (Clear) Urine pH 7.0 (5.0-8.0) Ur Specific [place] 1.020 (1.005-1.030) Urine Protein Negative (Negative) Urine Glucose (UA) Negative (Negative) Urine Ketones Negative (Negative) Urine Occult Blood 3+ H (Negative) Urine Nitrite Negative (Negative) Urine Bilirubin Negative (Negative) Urine Urobilinogen 0.2 (0.2-1.0) Ur Leukocyte Esterase 1+ H (Negative) Urine RBC 10-20 H (0-5) /hpf Urine WBC 20-30 H (0-5) /hpf Ur Squamous Epith Cells 5-10 H (0-5) /hpf Urine Bacteria Few (FEW) /hpf Urine Mucus Few (FEW) /hpf Meds: Medications Generic Name Dose Route Start Last Admin Trade Name Freq PRN Reason Stop Dose Admin Sodium Chloride 1,000 mls @ 150 mls/hr 02/25/20 21:15 02/25/20 21:51 Normal Saline IV 150 mls/hr ASDIRECTED JAISON Administration Sodium Chloride 10 ml 02/25/20 22:06 02/25/20 22:33 Saline Flush FLUSH 10 ml ONETIME PRN Administration Keep Vein Open Discontinued Medications Generic Name Dose Route Start Last Admin Trade Name Freq PRN Reason Stop Dose Admin Diatrizoate Meglum/Diatrizoate Sod 40 ml 02/25/20 22:06 02/25/20 22:33 Gastrografin 37% PO 02/25/20 22:07 40 ml ONETIME ONE Administration Hydromorphone HCl 0.5 mg 02/25/20 21:07 02/25/20 21:50 Dilaudid IVPUSH 02/25/20 21:08 0.5 mg ONETIME ONE Administration Iopamidol 100 ml 02/25/20 22:06 02/25/20 22:33 Isovue-300 (61%) IVPUSH 02/25/20 22:07 100 ml ONETIME ONE Administration Ondansetron HCl 4 mg 02/25/20 21:07 02/25/20 21:51 Zofran IVPUSH 02/25/20 21:08 4 mg ONETIME ONE Administration - Re-Assessments/Exams Free Text/Narrative Re-Assessment/Exam: 02/25/20 2110 Hematology was found to be grossly unremarkable. Transvaginal ultrasound showed a slightly enlarged uterus but was otherwise normal. Called and spoke with patient's PLATING TANK OPERATOR APPRENTICE, Dr. Guzman and discussed patient's case. We will complete a CT scan of the abdomen and pelvis with contrast. I have also ordered some IV fluids as well as Zofran and Dilaudid. 02/25/20 23:28 Urinalysis was significant for 3+ occult blood, 1+ leukocyte esterase, 10-20 RBCs, 20-30 WBCs, and 5-[address] scan of the abdomen pelvis showed no acute inflammatory processes within the abdomen or pelvis. It did show a 10 mm enhancing nodule within the uterine fundus. Radiologist recommends follow-up evaluation with an ultrasound of the endometrium. Radiologist also comments that there is a fairly large volume of stool in the colon. Called and spoke with Dr. Guzman. She stated that patient has a history of bacteria but that cultures grew out normal dany. She recommended that we do not treat for UTI at this time. She does not feel that the ultrasound of the endometrium needs to be done emergently tonight. She recommended that we write an order for an outpatient ultrasound and have her follow-up with her in the clinic on . We will also recommend that she use MiraLAX to treat her constipation. Patient to return for any worsening symptoms. Discharge instructions as documented. Departure - Departure Time of Disposition: 23:20 Disposition: Home, Self-Care 01 Condition: Good Clinical Impression: Pelvic pain - Discharge Information *PRESCRIPTION DRUG MONITORING PROGRAM REVIEWED*: No *COPY OF PRESCRIPTION DRUG MONITORING REPORT IN PATIENT SPEEDY: No Referrals: Ilene Guzman MD [Primary Care Provider] - Forms: ED Department Discharge Additional Instructions: You were seen in the emergency department this evening for abrupt onset of left pelvic pain. Your work-up included blood work, urinalysis, and ultrasound of your pelvis, and a CT scan of your abdomen and pelvis. The ultrasound did not show any abnormalities. CT scan of your abdomen pelvis showed a 10 mm nodule within the uterus. After discussion with Dr. Guzman, it is recommended that you have an outpatient ultrasound of your endometrium done to ensure that there is no remaining products of conception. There was also an increased amount of stool throughout your colon, therefore it is possible that constipation could be contributing to your pain. Recommend that you take [id number] MiraLAX to stimulate your bowels to move. You may continue to use [id number] Tylenol and ibuprofen as needed for pain. For pain not relieved by that, you may use your oxycodone. Recommend that you contact Dr. Guzman's office tomorrow to set up an appointment for when she has back in the office on . Also recommend that you call radiology first thing tomorrow morning to set up an appointment to have your ultrasound completed. If you should experience any worsening symptoms, please not hesitate to return to the emergency department. Sepsis Event Note (ED) - Evaluation Sepsis Screening Result: No Definite Risk - Focused Exam Vital Signs: Vital Signs Temp Pulse Resp BP Pulse Ox 02/25/20 18:15 98.1 F 70 16 130/82 95 - My Orders Last 24 Hours: My Active Orders 02/25/20 21:07 Abdomen Pelvis w Cont [CT] Stat 02/25/20 21:15 Sodium Chloride 0.9% [Normal Saline] 1,000 ml IV ASDIRECTED 02/25/20 21:55 CULTURE URINE [RM] Stat 02/25/20 22:06 Sodium Chloride 0.9% [Saline Flush] 10 ml FLUSH ONETIME PRN - Assessment/Plan Last 24 Hours: My Active Orders 02/25/20 21:07 Abdomen Pelvis w Cont [CT] Stat 02/25/20 21:15 Sodium Chloride 0.9% [Normal Saline] 1,000 ml IV ASDIRECTED 02/25/20 21:55 CULTURE URINE [RM] Stat 02/25/20 22:06 Sodium Chloride 0.9% [Saline Flush] 10 ml FLUSH ONETIME PRN
[2020-02-25] MEDS ORDERED: Iopamidol 612 MG/ML 100 ML Bottle IVPUSH ONE (22:06)
[2020-02-25] MEDS ORDERED: Sodium Chloride 0.9% 10 ML Syringe FLUSH PRN (22:06)
[2020-02-25] MEDS ORDERED: Diatrizoate Meglumine/Diatrizoate Sodium 37% 120 ML Bottle PO ONE (22:06)
--- NOTE | 2020-02-26 14:41 | CT ---
CT abdomen and pelvis Technique: Multiple axial sections were obtained from above the dome of the diaphragm inferiorly through the pubic symphysis. Intravenous contrast was utilized. Delayed images were obtained through the bladder. Reconstructed coronal and sagittal images were also obtained. Comparison: Prior pelvic ultrasound study performed earlier on the same day (9:06 PM). Findings: Visualized lung bases show nothing acute. Liver contains no focal parenchymal abnormality. Spleen appears within normal limits. Adrenal glands contain no nodule. Kidneys show symmetric contrast enhancement without hydronephrosis or mass. Pancreas is within normal limits. Aorta shows no aneurysm. No retroperitoneal adenopathy is appreciated. Appendix is seen which is normal. No pelvic mass or adenopathy is seen. Uterus is generous in size. There is an enhancing nodule being seen within the endometrial cavity measuring about 1.0 cm. Difficult to exclude small area of retained products of conception. No additional pelvic abnormality is appreciated. Bone window settings were reviewed which show no acute osseous finding. Small fat-containing umbilical hernia is noted. Impression: 1. Small enhancing nodule within the endometrial cavity. Difficult to exclude minimal area of retained products of conception. This finding is not seen on previous ultrasound which may relate to its small size. 2. Other findings believed to be incidental. Nothing acute is otherwise seen. Diagnostic code #3 This report was dictated in MDT I agree with preliminary report from allison, finalized on 02/26/20, 12:09 AM Central Daylight Time
== END 2020-02-25 23:37 | disposition home or self-care (01) ==
LOC: JD.ED 18:08
DX: R10.2 Pelvic and perineal pain (principal); I10 Essential (primary) hypertension; E03.9 Hypothyroidism, unspecified; J45.909 Unspecified asthma, uncomplicated; F90.9 Attention-deficit hyperactivity disorder, unspecified type; Z79.899 Other long term (current) drug therapy; Z90.49 Acquired absence of other specified parts of digestive tract; Z98.890 Other specified postprocedural states
CPT/HCPCS: 36415; 74177; 76856; 80053; 81001; 85025; 86140; 87086; 96374; 96375; 99284; J1170; J2405; J7030; Q9963; Q9967; 99283

== ENCOUNTER 2020-03-06 07:06 | Day surgery (SDC) | payer BC ==
[~2020-03-06 07:06] MED LIST changes: -Famotidine 20 MG/2 ML SDV IVPUSH ONE; -Lactated Ringers 1,000 ML IV SCH; -Metoclopramide 10 MG/2 ML SDV IVPUSH ONE
[2020-03-06] MEDS ORDERED: Lidocaine 1% 4 ML ONE (07:31)
[2020-03-06] MEDS ORDERED: Ketorolac 15 MG/ML SDV ONE (07:31)
[2020-03-06] MEDS ORDERED: Ondansetron 4 MG/2 ML SDV ONE (07:31)
[2020-03-06] MEDS ORDERED: Propofol 200 MG/20 ML SDV ONE (07:31)
[2020-03-06] MEDS ORDERED: Dexamethasone 4 MG/ML 5 ML MDV ONE (07:31)
[2020-03-06] MEDS ORDERED: fentaNYL 100 MCG/2 ML SDV ONE (07:31)
[2020-03-06] MEDS: Lactated Ringers 1,000 ML IV SCH ×2 (07:40→09:05)
[2020-03-06] MEDS ORDERED: Ketamine 500 mg/10 ML MDV ONE (07:41)
[2020-03-06] MEDS ORDERED: ceFAZolin 1 GM Vial ONE (08:00)
[2020-03-06] MEDS ORDERED: Ondansetron 4 MG/2 ML SDV IVPUSH PRN (08:19)
--- NOTE | 2020-03-06 08:27 | PCM.OPNOTE ---
- General Post-Op/Procedure Note Date of Surgery/Procedure: 03/06/20 Operative Procedure(s): dilation and suction curettage Findings: uterus sounded to 9 cm. It was mid position and somewhat retroflexed. Cervix was dilated minimally to approximately 5-7 mm. Curettings from the endometrial cavity were consistent with retained products of conceptionpossible placental fragments. No adnexal abnormalities are noted. Pre Op Diagnosis: retained products of conception Post-Op Diagnosis: Same Anesthesia Technique: MAC Primary Surgeon: Curtis Parisi Secondary Surgeon: Vielka Daniel Anesthesia Provider: Noni Garcia Pathology: endometrial curettings consistent with products of conception. EBL in mLs: 25 Complications: None Condition: Good Free Text/Narrative:: surgery duration: 6 minutes The patient was taken to the operating room and placed in a supine position operating table. She received 2 g of Ancef preoperatively for infection prophylaxis and had sequential compression stockings in place for DVT prophylaxis. After adequate MAC the patient was placed in a dorsal lithotomy position. A weighted speculum was placed in the vagina. Cervix is found to be dilated to approximately 0.8 centimeters. Uterus was sounded to approximately 9.5 cm. It was found to be posterior and mid position. An 8 mm suction curette was then introduced in routine fashion the endometrial cavity was evacuated. Moderate amount tissue was obtained. Findings consistent with products of conception/probable retained placenta. A medium size sharp curet was introduced and very careful fashion the endometrial cavity was curetted. It was be clear of any further tissue. The suction curet was then reintroduced and small and blood was removed. No further tissue was removed. This point the D&C was discontinued. The single-toothed tenaculum used to stabilize the anterior lip the cervix was removed. Blood was removed from the vagina with a stick sponge and the weighted speculum was removed from the vagina. The patient was discharged from the operating room in good condition.
--- NOTE | 2020-03-06 08:31 | PCM.POSTAN ---
POST ANESTHESIA ASSESSMENT - MENTAL STATUS Mental Status: Alert, Oriented, Other - VITAL SIGNS Vital Signs: Last Vital Signs Temp 36.2 C 03/06/20 07:10 Pulse 72 03/06/20 07:10 Resp 16 03/06/20 07:10 BP 125/83 03/06/20 07:10 Pulse Ox 97 03/06/20 07:10 0823 118/83 79 12 96% 97.6F - RESPIRATORY Respiratory Status: Respiratory Rate WNL, Airway Patent, O2 Saturation Stable, Supplemental Oxygen - CARDIOVASCULAR CV Status: Pulse Rate WNL, Blood Pressure Stable - GASTROINTESTINAL GI Status: No Symptoms - PAIN Pain Score: 0 - POST OP HYDRATION Hydration Status: Adequate & Stable
--- NOTE | 2020-03-06 09:20 | PCM48HPAN ---
Post Anesthesia Note - EVALUATION WITHIN 48HRS OF ANESTHETIC Vital Signs in Normal Range: Yes Patient Participated in Evaluation: Yes Respiratory Function Stable: Yes Airway Patent: Yes Cardiovascular Function Stable: Yes Hydration Status Stable: Yes Pain Control Satisfactory: Yes Nausea and Vomiting Control Satisfactory: Yes Mental Status Recovered: Yes Vital Signs: Last Vital Signs Temp 36.3 C 03/06/20 08:55 Pulse 59 L 03/06/20 08:55 Resp 12 03/06/20 08:55 BP 116/75 03/06/20 08:55 Pulse Ox 97 03/06/20 08:55
[2020-03-06 09:54] VITALS: BP 118/80; PULSE 63
[2020-03-06] MEDS ORDERED: Ibuprofen 600 MG Tab PO PRN (13:30)
== END 2020-03-06 10:02 | disposition home or self-care (01) ==
LOC: JD.SDS 07:06
PROVIDERS: ATTEND Obstetrics & Gynecology
DX: O72.2 Delayed and secondary postpartum hemorrhage (principal); O86.12 Endometritis following delivery; O99.345 Other mental disorders complicating the puerperium; F41.9 Anxiety disorder, unspecified; F90.9 Attention-deficit hyperactivity disorder, unspecified type; O99.53 Diseases of the respiratory system complicating the puerperium; J45.909 Unspecified asthma, uncomplicated; O10.03 Pre-existing essential hypertension complicating the puerperium; O99.285 Endocrine, nutritional and metabolic diseases complicating the puerperium; E78.00 Pure hypercholesterolemia, unspecified; E03.9 Hypothyroidism, unspecified; R61 Generalized hyperhidrosis; Z79.890 Hormone replacement therapy; Z79.899 Other long term (current) drug therapy
CPT/HCPCS: 59160; J0690; J1100; J1885; J2001; J2405; J2704; J3010; J7120; 00940

== ENCOUNTER 2020-12-23 04:03 | Emergency (ER) | payer BC ==
[2020-12-23 04:18] VITALS: BP 145/105; PULSE 71
[2020-12-23] MEDS ORDERED: Sodium Chloride 0.9% 1,000 ML IV SCH (04:30)
[2020-12-23] MEDS ORDERED: Sodium Chloride 0.9% 10 ML Syringe FLUSH PRN (04:30)
[2020-12-23] MEDS ORDERED: HYDROmorphone 0.5 MG/0.5 ML Syringe IVPUSH ONE ×2 (04:30→06:01)
[2020-12-23] MEDS ORDERED: Ondansetron 4 MG/2 ML SDV IVPUSH ONE (04:30)
--- NOTE | 2020-12-23 04:32 | EDM.PDOC ---
ED HPI GENERAL MEDICAL PROBLEM - General Chief Complaint: Abdominal Pain Stated Complaint: abdominal/back pain Time Seen by Provider: 12/23/20 04:22 Source of Information: Reports: Patient, RN Notes Reviewed - History of Present Illness INITIAL COMMENTS - FREE TEXT/NARRATIVE: 30 yr old female with onset of abd pain and diarrhea yesterday. Many frequent episodes of watery diarrhea, always worse after eating. Around 10 PM last evening abd pain became much worse. Pain is mainly R sided which does radiate to her R back, does not radiate to R groin. No voiding sx. No fever or chills. Right Lower Back Pain Score (Numeric/FACES): 7 - Related Data Allergies Allergy/AdvReac Type Severity Reaction Status Date / Time No Known Allergies Allergy Verified 03/05/20 11:29 Home Meds: Home Meds Escitalopram Oxalate [Lexapro] 10 mg PO DAILY 01/11/20 [History] Ferrous Sulfate [Iron] 325 mg PO DAILY 01/11/20 [History] Levothyroxine 75 mcg PO ACBREAKFAST 01/11/20 [History] No122/Iron/Folic Acid [ Multi Tablet] 1 each PO DAILY 01/11/20 [History] Albuterol [Ventolin HFA] 2 puff INH Q4H PRN 02/10/20 [History] Cholecalciferol (Vitamin D3) [Vitamin D3] 5,000 unit PO DAILY 02/10/20 [History] Albuterol Sulfate 1 dose NEB ASDIRECTED PRN 03/05/20 [History] metroNIDAZOLE [Flagyl] 500 mg PO BID 03/05/20 [History] Ibuprofen [Motrin] 600 mg PO Q4H PRN tablet 03/06/20 [Rx] Nitrofurantoin Monohyd/M-Cryst [Macrobid 100 mg Capsule] 100 mg PO Q12HR #10 capsule 12/23/20 [Rx] Ondansetron [Zofran ODT] 4 mg PO Q8HR PRN #7 tab.dis 12/23/20 [Rx] Past Medical History - Past Health History Medical/Surgical History: Denies Medical/Surgical History HEENT History: Reports: Other (See Below) Other HEENT History: Wears glasses Cardiovascular History: Reports: Hypertension Other Cardiovascular History: Sinus tachycardia Respiratory History: Reports: Asthma Gastrointestinal History: Reports: Chronic Constipation, GERD, Irritable Bowel Syndrome Other Gastrointestinal History: RUQ pain Genitourinary History: Reports: None Other Genitourinary History: frequency [employer] TECH[employer]ICIAN History: Reports: , Other (See Below) Other [employer] P[employer] 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 low amniotic fluid Musculoskeletal History: Reports: Back Pain, Chronic Neurological History: Reports: Other (See Below) Other Neuro History: night terrors Psychiatric History: Reports: ADHD Other Psychiatric History: Night terrors Endocrine/Metabolic History: Reports: Hypothyroidism, Vitamin D Deficiency Hematologic History: Reports: Anemia Immunologic History: Reports: None Oncologic (Cancer) History: Reports: None Dermatologic History: Reports: None - Infectious Disease History Infectious Disease History: Reports: None - Past Surgical History Head Surgeries/Procedures: Reports: None HEENT Surgical History: Reports: Oral Surgery, Tonsillectomy Cardiovascular Surgical History: Reports: None Respiratory Surgical History: Reports: None GI Surgical History: Reports: Colonoscopy Female Surgical History: Reports: D&C Endocrine Surgical History: Reports: None Neurological Surgical History: Reports: None Musculoskeletal Surgical History: Reports: Other (See Below) Other Musculoskeletal Surgeries/Procedures:: Right wrist cyst removal, sacral pilonidal cyst removal Oncologic Surgical History: Reports: None Social & Family History - Family History Family Medical History: No Pertinent Family History - Tobacco Use Tobacco Use Status *Q: Unknown Ever Used Tobacco - Caffeine Use Caffeine Use: Reports: Coffee ED ROS GENERAL - Review of Systems Review Of Systems: See Below Constitutional: Denies: Fever, Chills HEENT: Reports: No Symptoms Respiratory: Denies: Shortness of Breath, Cough Cardiovascular: Denies: Chest Pain GI/Abdominal: Reports: Abdominal Pain, Diarrhea, Nausea. Denies: Hematochezia, Melena, Vomiting Musculoskeletal: Reports: Back Pain Skin: Reports: No Symptoms Neurological: Reports: No Symptoms ED EXAM, GI/ABD - Physical Exam Exam: See Below General Appearance: Alert, Moderate Distress Head: Atraumatic Neck: Supple Respiratory/Chest: No Respiratory Distress, Lungs Clear, Normal Breath Sounds Cardiovascular: Regular Rate, Rhythm GI/Abdominal Exam: Tender (R mid abd, L abd nontender). No: Guarding, Rebound Back Exam: CVA Tenderness (R) (mild). No: CVA Tenderness (L) Skin Exam: Warm, Dry, Normal Color Course - Vital Signs Last Recorded V/S: Last Vital Signs Temp 96.7 F L 06/02/21 04:16 Pulse 71 12/23/20 04:16 Resp 15 12/23/20 04:16 BP 145/105 H 12/23/20 04:16 Pulse Ox 97 12/23/20 04:16 - Orders/Labs/Meds Orders: Active Orders 24 hr Category Date Time Status Peripheral IV Care [RC] . DIRECTED Care 12/23/20 04:31 Active Sodium Chloride 0.9% [Normal Saline] 1,000 ml Med 12/23/20 04:30 Active IV ONETIME Sodium Chloride 0.9% [Saline Flush] Med 12/23/20 04:30 Active 10 ml FLUSH ASDIRECTED PRN Peripheral IV Insertion Adult [OM.PC] Stat Oth 12/23/20 04:30 Ordered Medication Orders Sodium Chloride (Normal Saline) 1,000 mls @ 999 mls/hr IV ONETIME JAISON Last Admin: 12/23/20 04:41 Dose: 999 mls/hr Documented by: LATISHA Sodium Chloride (Sodium Chloride 0.9% 10 Ml Syringe) 10 ml FLUSH ASDIRECTED PRN PRN Reason: Keep Vein Open Last Admin: 12/23/20 04:41 Dose: 10 ml Documented by: LATISHA Labs: Laboratory Tests 12/23/20 12/23/20 12/23/20 Range/Units 04:36 04:36 04:36 WBC 7.49 (3.98-10.04) K/mm3 RBC 4.63 (3.98-5.22) M/mm3 Hgb 13.2 D (11.2-15.7) gm/dl Hct 41.4 (34.1-44.9) % MCV 89.4 D (79.4-94.8) fl MCH 28.5 (25.6-32.2) pg MCHC 31.9 L (32.2-35.5) g/dl RDW Std Deviation 44.2 (36.4-46.3) fL Plt Count 271 (182-369) K/mm3 MPV 10.0 (9.4-12.3) fl Neut % (Auto) 50.3 (34.0-71.1) % Lymph % (Auto) 37.0 (19.3-51.7) % [place] % (Auto) 9.9 (4.7-12.5) % Eos % (Auto) 2.0 (0.7-5.8) Baso % (Auto) 0.7 (0.1-1.2) % Neut # (Auto) 3.77 (1.56-6.13) K/mm3 Lymph # (Auto) 2.77 (1.18-3.74) K/mm3 [place] # (Auto) 0.74 H (0.24-0.36) K/mm3 Eos # (Auto) 0.15 (0.04-0.36) K/mm3 Baso # (Auto) 0.05 (0.01-0.08) K/mm3 Sodium 141 (136-145) mEq/L Potassium 4.1 (3.5-5.1) mEq/L Chloride 105 (98-107) mEq/L Carbon Dioxide 26 (21-32) mEq/L Anion Gap 14.1 (5-15) BUN 15 (7-18) mg/dL Creatinine 0.9 (0.55-1.02) mg/dL Est Cr Clr Drug Dosing 78.21 mL/min Estimated GFR (MDRD) > 60 (>60) mL/min BUN/Creatinine Ratio 16.7 (14-18) Glucose 103 H (70-99) mg/dL Calcium 8.6 (8.5-10.1) mg/dL Total Bilirubin 0.3 (0.2-1.0) mg/dL AST 16 (15-37) U/L ALT 26 (14-59) U/L Alkaline Phosphatase 75 (46-116) U/L C-Reactive Protein 0.4 (<1.0) mg/dL Total Protein 6.9 (6.4-8.2) g/dl Albumin 3.6 (3.4-5.0) g/dl Globulin 3.3 gm/dL Albumin/Globulin Ratio 1.1 (1-2) Urine Color (Yellow) Urine Appearance (Clear) Urine pH (5.0-8.0) Ur Specific [place] (1.005-1.030) Urine Protein (Negative) Urine Glucose (UA) (Negative) Urine Ketones (Negative) Urine Occult Blood (Negative) Urine Nitrite (Negative) Urine Bilirubin (Negative) Urine Urobilinogen (0.2-1.0) Ur Leukocyte Esterase (Negative) Urine RBC (0-5) /hpf Urine WBC (0-5) /hpf Ur Squamous Epith Cells (0-5) /hpf Urine Bacteria (FEW) /hpf Urine Mucus (FEW) /hpf 12/23/20 Range/Units 04:40 WBC (3.98-10.04) K/mm3 RBC (3.98-5.22) M/mm3 Hgb (11.2-15.7) gm/dl Hct (34.1-44.9) % MCV (79.4-94.8) fl MCH (25.6-32.2) pg MCHC (32.2-35.5) g/dl RDW Std Deviation (36.4-46.3) fL Plt Count (182-369) K/mm3 MPV (9.4-12.3) fl Neut % (Auto) (34.0-71.1) % Lymph % (Auto) (19.3-51.7) % [place] % (Auto) (4.7-12.5) % Eos % (Auto) (0.7-5.8) Baso % (Auto) (0.1-1.2) % Neut # (Auto) (1.56-6.13) K/mm3 Lymph # (Auto) (1.18-3.74) K/mm3 [place] # (Auto) (0.24-0.36) K/mm3 Eos # (Auto) (0.04-0.36) K/mm3 Baso # (Auto) (0.01-0.08) K/mm3 Sodium (136-145) mEq/L Potassium (3.5-5.1) mEq/L Chloride (98-107) mEq/L Carbon Dioxide (21-32) mEq/L Anion Gap (5-15) BUN (7-18) mg/dL Creatinine (0.55-1.02) mg/dL Est Cr Clr Drug Dosing mL/min Estimated GFR (MDRD) (>60) mL/min BUN/Creatinine Ratio (14-18) Glucose (70-99) mg/dL Calcium (8.5-10.1) mg/dL Total Bilirubin (0.2-1.0) mg/dL AST (15-37) U/L ALT (14-59) U/L Alkaline Phosphatase (46-116) U/L C-Reactive Protein (<1.0) mg/dL Total Protein (6.4-8.2) g/dl Albumin (3.4-5.0) g/dl Globulin gm/dL Albumin/Globulin Ratio (1-2) Urine Color Yellow (Yellow) Urine Appearance Cloudy H (Clear) Urine pH 6.0 (5.0-8.0) Ur Specific [place] 1.025 (1.005-1.030) Urine Protein Negative (Negative) Urine Glucose (UA) Negative (Negative) Urine Ketones Negative (Negative) Urine Occult Blood 2+ H (Negative) Urine Nitrite Negative (Negative) Urine Bilirubin Negative (Negative) Urine Urobilinogen 0.2 (0.2-1.0) Ur Leukocyte Esterase 1+ H (Negative) Urine RBC 10-20 H (0-5) /hpf Urine WBC 5-10 H (0-5) /hpf Ur Squamous Epith Cells 5-10 H (0-5) /hpf Urine Bacteria Moderate H (FEW) /hpf Urine Mucus Few (FEW) /hpf Meds: Medications Generic Name Dose Route Start Last Admin Trade Name Freq PRN Reason Stop Dose Admin Sodium Chloride 1,000 mls @ 999 mls/hr 12/23/20 04:30 12/23/20 04:41 Normal Saline IV 999 mls/hr ONETIME JAISON Administration Sodium Chloride 10 ml 12/23/20 04:30 12/23/20 04:41 Sodium Chloride 0.9% 10 Ml Syringe FLUSH 10 ml ASDIRECTED PRN Administration Keep Vein Open Discontinued Medications Generic Name Dose Route Start Last Admin Trade Name Freq PRN Reason Stop Dose Admin Hydromorphone HCl 0.5 mg 12/23/20 04:30 12/23/20 04:41 Hydromorphone 0.5 Mg/0.5 Ml Syringe IVPUSH 12/23/20 04:31 0.5 mg ONETIME ONE Administration Hydromorphone HCl 0.5 mg 12/23/20 06:01 12/23/20 06:12 Hydromorphone 0.5 Mg/0.5 Ml Syringe IVPUSH 12/23/20 06:02 0.5 mg ONETIME ONE Administration Nitrofurantoin Macrocrystals 100 mg 12/23/20 06:01 12/23/20 06:12 Nitrofurantoin Monohydrate/Macrocrystalline 100 Mg Cap PO 12/23/20 06:02 100 mg ONETIME ONE Administration Ondansetron HCl 4 mg 12/23/20 04:30 12/23/20 04:41 Ondansetron 4 Mg/2 Ml Sdv IVPUSH 12/23/20 04:31 4 mg ONETIME ONE Administration - Re-Assessments/Exams Free Text/Narrative Re-Assessment/Exam: 12/23/20 07:22 Ua does show evidence for UTI although some epith cells present. Renal CT does show 3 mm stone distal R ureter. She does feel much better after 2 doses of dilaudid IV. Discharge instr. as documented. Departure - Departure Time of Disposition: 06:20 Disposition: Home, Self-Care 01 Condition: Fair Clinical Impression: Kidney stone on right side Abdominal pain Qualifiers: Abdominal location: unspecified location Qualified Code(s): R10.9 - Unspecified abdominal pain Diarrhea Qualifiers: Diarrhea type: unspecified type Qualified Code(s): R19.7 - Diarrhea, unspecified UTI (urinary tract infection) Qualifiers: Urinary tract infection type: acute cystitis Hematuria presence: with hematuria Qualified Code(s): N30.01 - Acute cystitis with hematuria - Discharge Information Prescriptions: Nitrofurantoin Monohyd/M-Cryst [Macrobid 100 mg Capsule] 100 mg PO Q12HR #10 capsule Ondansetron [Zofran ODT] 4 mg PO Q8HR PRN #7 tab.dis PRN Reason: Nausea/Vomiting Instructions: Urinary Tract Infection, Adult Referrals: Ilene Guzman MD [Primary Care Provider] - Forms: ED Department Discharge Additional Instructions: Clear liquids until this afternoon. Than careful bland diet as tolerated. Strain urine to watch for stone. Macrobid antibiotic twice daily for 5 days or until gone. Zofran if needed for nausea or vomiting. Prescriptions for macrobid and zofran [facility] Tylenol for mild to moderate discomfort as needed. Hydrocodone q 6 to 8 hr if needed for severe pain. Strain urine to watch for stone. Follow up clinic if you do not pass this stone within 3 to 4 days as expected. Return to ED as needed if symptoms worsening in any way. Sepsis Event Note (ED) - Evaluation Sepsis Screening Result: No Definite Risk - Focused Exam Vital Signs: Vital Signs Temp Pulse Resp BP Pulse Ox 12/23/20 04:16 96.7 F L 71 15 145/105 H 97 - My Orders Last 24 Hours: My Active Orders 12/23/20 04:30 Sodium Chloride 0.9% [Normal Saline] 1,000 ml IV ONETIME Sodium Chloride 0.9% [Saline Flush] 10 ml FLUSH ASDIRECTED PRN Peripheral IV Insertion Adult [OM.PC] Stat 12/23/20 04:31 Peripheral IV Care [RC] . DIRECTED - Assessment/Plan Last 24 Hours: My Active Orders 12/23/20 04:30 Sodium Chloride 0.9% [Normal Saline] 1,000 ml IV ONETIME Sodium Chloride 0.9% [Saline Flush] 10 ml FLUSH ASDIRECTED PRN Peripheral IV Insertion Adult [OM.PC] Stat 12/23/20 04:31 Peripheral IV Care [RC] . DIRECTED
[2020-12-23] MEDS ORDERED: Nitrofurantoin Monohydrate/Macrocrystalline 100 MG Cap PO ONE (06:01)
--- NOTE | 2020-12-23 07:02 | CT ---
CT abdomen and pelvis Technique: Multiple axial sections were obtained from above the dome of the diaphragm inferiorly through the pubic symphysis. Intravenous and oral contrast were not utilized. Study has been performed as a ureteral stone protocol. Comparison: Prior abdomen and pelvis CT dated 02/25/20. Findings: Dilated right ureter is seen down to the UVJ. This finding is caused by an obstructing ureteral calculus measuring about 3.0 mm. No additional ureteral calculi are appreciated. Very minimal nonobstructing calculi are seen within both kidneys. Visualized lung bases show minimal atelectasis. Noncontrast appearance of the liver and spleen appear within normal limits. Adrenal glands show no nodule. No abnormality is identified within the pancreas. Gallbladder contains no calcified gallstones. Aorta shows no aneurysm. No retroperitoneal adenopathy or mesenteric abnormalities are seen. No pelvic mass or adenopathy is identified. Appendix is seen which is normal in size. Slight increased stool within the colon is noted. Bone window settings were reviewed which appear within normal limits for the patient's age. Impression: 1. 3 mm obstructing calculus within the distal right ureter close to the UVJ causing proximal hydronephrosis. 2. Very minimal nonobstructing calculi within both kidneys. 3. Slight increased stool within the colon. Diagnostic code #3
== END 2020-12-23 07:33 | disposition home or self-care (01) ==
LOC: JD.ED 04:03
DX: N13.2 Hydronephrosis with renal and ureteral calculous obstruction (principal); N39.0 Urinary tract infection, site not specified; I10 Essential (primary) hypertension; E03.9 Hypothyroidism, unspecified; K21.9 Gastro-esophageal reflux disease without esophagitis; Z79.899 Other long term (current) drug therapy
CPT/HCPCS: 36415; 74176; 80053; 81001; 85025; 86140; 96374; 96375; 96376; 99284; A9270; J1170; J2405; J7030

== ENCOUNTER 2020-12-24 07:25 | Emergency (ER) | payer BC ==
[2020-12-24] MEDS ORDERED: Sodium Chloride 0.9% 10 ML Syringe FLUSH PRN (08:02)
[2020-12-24] MEDS ORDERED: Ondansetron 4 MG/2 ML SDV IVPUSH ONE (08:02)
[2020-12-24] MEDS ORDERED: Sodium Chloride 0.9% 1,000 ML IV STA (08:02)
[2020-12-24] MEDS ORDERED: Ketorolac 30 MG/ML SDV IVPUSH ONE (08:04)
[2020-12-24] MEDS ORDERED: HYDROmorphone 0.5 MG/0.5 ML Syringe IVPUSH ONE (08:04)
--- NOTE | 2020-12-24 08:31 | EDM.PDOC ---
ED HPI GENERAL MEDICAL PROBLEM - General Chief Complaint: Flank Pain Stated Complaint: KIDNEY PAIN AND FEVER NOT GETTING BETTER Time Seen by Provider: 12/24/20 07:56 Source of Information: Reports: Patient History Limitations: Reports: No Limitations - History of Present Illness INITIAL COMMENTS - FREE TEXT/NARRATIVE: The patient presents with bilateral flank pain, abdominal pain, nausea, vomiting and fever. The patient was seen here yesterday for right flank and right sided abdominal pain. A CT was done and it showed a 3mm renal stone in the distal right ureter at the UVJ. Her urine looked like she could possibly have a UTI. She had some leukocyte esterase and bacteria but she also had some epithelial cells. She went home on nitrofurantoin, zofran for nausea and vomiting and hydrocodone for pain. She says the pain is worse and now it is on the left flank and left abdomen. She is still vomiting. She now has a fever and it was 102.6 at home. She did not pass the stone yet. Onset: Gradual Duration: Day(s): (2) Location: Reports: Abdomen, Back Quality: Reports: Sharp Severity: Moderate Improves with: Reports: None Worsens with: Reports: None Associated Symptoms: Reports: Fever/Chills, Nausea/Vomiting. Denies: Chest Pain, Cough, Headaches, Shortness of Breath Bilateral Flank Pain Score (Numeric/FACES): 8 - Related Data Allergies Allergy/AdvReac Type Severity Reaction Status Date / Time No Known Allergies Allergy Verified 12/24/20 07:59 Home Meds: Home Meds Escitalopram Oxalate [Lexapro] 10 mg PO DAILY 01/11/20 [History] Levothyroxine 75 mcg PO ACBREAKFAST 01/11/20 [History] Albuterol [Ventolin HFA] 2 puff INH Q4H PRN 02/10/20 [History] Cholecalciferol (Vitamin D3) [Vitamin D3] 5,000 unit PO DAILY 02/10/20 [History] Albuterol Sulfate 1 dose NEB ASDIRECTED PRN 03/05/20 [History] Ibuprofen [Motrin] 600 mg PO Q4H PRN tablet 03/06/20 [Rx] Nitrofurantoin Monohyd/M-Cryst [Macrobid 100 mg Capsule] 100 mg PO Q12HR #10 capsule 12/23/20 [Rx] Ondansetron [Zofran ODT] 4 mg PO Q8HR PRN #7 tab.dis 12/23/20 [Rx] ClonazePAM [KlonoPIN] 1 mg PO DAILY PRN 12/24/20 [History] Hydrocodone/Acetaminophen [Hydrocodone-Acetamin 5-325 mg] 1 tab PO Q6H PRN 12/24/20 [History] Methylphenidate HCl [Methylphenidate ER] 36 mg PO DAILY 12/24/20 [History] Past Medical History - Past Health History Medical/Surgical History: Denies Medical/Surgical History HEENT History: Reports: Other (See Below) Other HEENT History: Wears glasses Cardiovascular History: Reports: Hypertension Other Cardiovascular History: Sinus tachycardia Respiratory History: Reports: Asthma Gastrointestinal History: Reports: Chronic Constipation, GERD, Irritable Bowel Syndrome Other Gastrointestinal History: RUQ pain Genitourinary History: Reports: None Other Genitourinary History: frequency FINISHER HOT STRIP History: Reports: , Other (See Below) Other FINISHER HOT STRIP History: hypercoiled umbilical cord. low amniotic fluid Musculoskeletal History: Reports: Back Pain, Chronic Neurological History: Reports: Other (See Below) Other Neuro History: night terrors Psychiatric History: Reports: ADHD Other Psychiatric History: Night terrors Endocrine/Metabolic History: Reports: Hypothyroidism, Vitamin D Deficiency Hematologic History: Reports: Anemia Immunologic History: Reports: None Oncologic (Cancer) History: Reports: None Dermatologic History: Reports: None - Infectious Disease History Infectious Disease History: Reports: None - Past Surgical History Head Surgeries/Procedures: Reports: None HEENT Surgical History: Reports: Oral Surgery, Tonsillectomy Cardiovascular Surgical History: Reports: None Respiratory Surgical History: Reports: None GI Surgical History: Reports: Colonoscopy Female Surgical History: Reports: D&C Endocrine Surgical History: Reports: None Neurological Surgical History: Reports: None Musculoskeletal Surgical History: Reports: Other (See Below) Other Musculoskeletal Surgeries/Procedures:: Right wrist cyst removal, sacral pilonidal cyst removal Oncologic Surgical History: Reports: None Social & Family History - Family History Family Medical History: No Pertinent Family History - Tobacco Use Tobacco Use Status *Q: Never Tobacco User - Caffeine Use Caffeine Use: Reports: Energy Drinks - Recreational Drug Use Recreational Drug Use: No ED ROS GENERAL - Review of Systems Review Of Systems: See Below Constitutional: Reports: Fever, Chills HEENT: Reports: No Symptoms Respiratory: Reports: No Symptoms Cardiovascular: Reports: No Symptoms Endocrine: Reports: No Symptoms GI/Abdominal: Reports: Abdominal Pain, Nausea, Vomiting : Reports: Flank Pain Musculoskeletal: Reports: Back Pain ED EXAM, GI/ABD - Physical Exam Exam: See Below Exam Limited By: No Limitations General Appearance: Alert, No Apparent Distress Ears: Normal External Exam Nose: Normal Inspection Head: Atraumatic, Normocephalic Neck: Normal Inspection Respiratory/Chest: No Respiratory Distress, Lungs Clear, Normal Breath Sounds Cardiovascular: Regular Rate, Rhythm, No Edema, No Murmur GI/Abdominal Exam: Soft, No Organomegaly, No Mass, Tender (Mild tenderness to the lower abdomen) Back Exam: CVA Tenderness (L) (mild), CVA Tenderness (R) (mild) Extremities: Normal Inspection Neurological: Alert, Oriented, No Motor/Sensory Deficits Course - Vital Signs Last Recorded V/S: Last Vital Signs Temp 97.3 F 12/24/20 07:46 Pulse 129 H 12/24/20 07:46 Resp 18 12/24/20 07:46 BP 111/75 12/24/20 07:46 Pulse Ox 95 12/24/20 07:46 - Orders/Labs/Meds Orders: Active Orders 24 hr Category Date Time Status Peripheral IV Care [RC] . DIRECTED Care 12/24/20 08:03 Active CULTURE URINE [MREF] Stat Lab 12/24/20 09:27 Received Sodium Chloride 0.9% [Saline Flush] Med 12/24/20 08:02 Active 10 ml FLUSH ASDIRECTED PRN cefTRIAXone [Rocephin] 2 gm Med 12/24/20 09:56 Active Sodium Chloride 0.9% [Normal Saline] 100 ml IV ONETIME ED Antiemetic Medication Reflex [OM.PC] Stat Oth 12/24/20 08:03 Ordered Peripheral IV Insertion Adult [OM.PC] Stat Oth 12/24/20 08:02 Ordered Medication Orders Ceftriaxone Sodium 2 gm/ (Sodium Chloride) 100 mls @ 200 mls/hr IV ONETIME ONE Stop: 12/24/20 10:25 Last Admin: 12/24/20 10:04 Dose: 200 mls/hr Documented by: ABRAHAM Sodium Chloride (Sodium Chloride 0.9% 10 Ml Syringe) 10 ml FLUSH ASDIRECTED PRN PRN Reason: Keep Vein Open Last Admin: 12/24/20 08:57 Dose: 10 ml Documented by: ABRAHAM Labs: Laboratory Tests 12/24/20 12/24/20 12/24/20 Range/Units 08:50 08:50 09:23 WBC 12.45 H (3.98-10.04) K/mm3 RBC 4.41 (3.98-5.22) M/mm3 Hgb 12.6 (11.2-15.7) gm/dl Hct 39.4 (34.1-44.9) % MCV 89.3 (79.4-94.8) fl MCH 28.6 (25.6-32.2) pg MCHC 32.0 L (32.2-35.5) g/dl RDW Std Deviation 44.8 (36.4-46.3) fL Plt Count 222 (182-369) K/mm3 MPV 10.2 (9.4-12.3) fl Neut % (Auto) 81.8 H (34.0-71.1) % Lymph % (Auto) 8.9 L (19.3-51.7) % Morton % (Auto) 8.8 (4.7-12.5) % Eos % (Auto) 0.1 L (0.7-5.8) Baso % (Auto) 0.2 (0.1-1.2) % Neut # (Auto) 10.20 H (1.56-6.13) K/mm3 Lymph # (Auto) 1.11 L (1.18-3.74) K/mm3 Morton # (Auto) 1.09 H (0.24-0.36) K/mm3 Eos # (Auto) 0.01 L (0.04-0.36) K/mm3 Baso # (Auto) 0.02 (0.01-0.08) K/mm3 Manual Slide Review Normal smear Sodium 134 L (136-145) mEq/L Potassium 3.6 (3.5-5.1) mEq/L Chloride 101 (98-107) mEq/L Carbon Dioxide 24 (21-32) mEq/L Anion Gap 12.6 (5-15) BUN 9 (7-18) mg/dL Creatinine 0.9 (0.55-1.02) mg/dL Est Cr Clr Drug Dosing 78.21 mL/min Estimated GFR (MDRD) > 60 (>60) mL/min BUN/Creatinine Ratio 10.0 L (14-18) Glucose 109 H (70-99) mg/dL Calcium 8.3 L (8.5-10.1) mg/dL Total Bilirubin 0.7 (0.2-1.0) mg/dL AST 16 (15-37) U/L ALT 28 (14-59) U/L Alkaline Phosphatase 71 (46-116) U/L Total Protein 7.1 (6.4-8.2) g/dl Albumin 3.5 (3.4-5.0) g/dl Globulin 3.6 gm/dL Albumin/Globulin Ratio 1.0 (1-2) Urine Color (Yellow) Urine Appearance (Clear) Urine pH (5.0-8.0) Ur Specific [place] (1.005-1.030) Urine Protein (Negative) Urine Glucose (UA) (Negative) Urine Ketones (Negative) Urine Occult Blood (Negative) Urine Nitrite (Negative) Urine Bilirubin (Negative) Urine Urobilinogen (0.2-1.0) Ur Leukocyte Esterase (Negative) Urine RBC (0-5) /hpf Urine WBC (0-5) /hpf Ur Squamous Epith Cells (0-5) /hpf Urine Bacteria (FEW) /hpf Urine Mucus (FEW) /hpf SARS-CoV-2 RNA (ASH) Negative (NEGATIVE) 12/24/20 Range/Units 09:27 WBC (3.98-10.04) K/mm3 RBC (3.98-5.22) M/mm3 Hgb (11.2-15.7) gm/dl Hct (34.1-44.9) % MCV (79.4-94.8) fl MCH (25.6-32.2) pg MCHC (32.2-35.5) g/dl RDW Std Deviation (36.4-46.3) fL Plt Count (182-369) K/mm3 MPV (9.4-12.3) fl Neut % (Auto) (34.0-71.1) % Lymph % (Auto) (19.3-51.7) % Morton % (Auto) (4.7-12.5) % Eos % (Auto) (0.7-5.8) Baso % (Auto) (0.1-1.2) % Neut # (Auto) (1.56-6.13) K/mm3 Lymph # (Auto) (1.18-3.74) K/mm3 Morton # (Auto) (0.24-0.36) K/mm3 Eos # (Auto) (0.04-0.36) K/mm3 Baso # (Auto) (0.01-0.08) K/mm3 Manual Slide Review Sodium (136-145) mEq/L Potassium (3.5-5.1) mEq/L Chloride (98-107) mEq/L Carbon Dioxide (21-32) mEq/L Anion Gap (5-15) BUN (7-18) mg/dL Creatinine (0.55-1.02) mg/dL Est Cr Clr Drug Dosing mL/min Estimated GFR (MDRD) (>60) mL/min BUN/Creatinine Ratio (14-18) Glucose (70-99) mg/dL Calcium (8.5-10.1) mg/dL Total Bilirubin (0.2-1.0) mg/dL AST (15-37) U/L ALT (14-59) U/L Alkaline Phosphatase (46-116) U/L Total Protein (6.4-8.2) g/dl Albumin (3.4-5.0) g/dl Globulin gm/dL Albumin/Globulin Ratio (1-2) Urine Color Yellow (Yellow) Urine Appearance Slt cloudy H (Clear) Urine pH 6.5 (5.0-8.0) Ur Specific [place] 1.020 (1.005-1.030) Urine Protein Negative (Negative) Urine Glucose (UA) Negative (Negative) Urine Ketones Negative (Negative) Urine Occult Blood 2+ H (Negative) Urine Nitrite Negative (Negative) Urine Bilirubin Negative (Negative) Urine Urobilinogen 0.2 (0.2-1.0) Ur Leukocyte Esterase Trace H (Negative) Urine RBC 10-20 H (0-5) /hpf Urine WBC 10-20 H (0-5) /hpf Ur Squamous Epith Cells 5-10 H (0-5) /hpf Urine Bacteria Many H (FEW) /hpf Urine Mucus Few (FEW) /hpf SARS-CoV-2 RNA (ASH) (NEGATIVE) Meds: Medications Generic Name Dose Route Start Last Admin Trade Name Freq PRN Reason Stop Dose Admin Ceftriaxone Sodium 2 gm/ 100 mls @ 200 mls/hr 12/24/20 09:56 12/24/20 10:04 Sodium Chloride IV 12/24/20 10:25 200 mls/hr ONETIME ONE Administration Sodium Chloride 10 ml 12/24/20 08:02 12/24/20 08:57 Sodium Chloride 0.9% 10 Ml Syringe FLUSH 10 ml ASDIRECTED PRN Administration Keep Vein Open Discontinued Medications Generic Name Dose Route Start Last Admin Trade Name Freq PRN Reason Stop Dose Admin Hydromorphone HCl 0.5 mg 12/24/20 08:04 12/24/20 08:57 Hydromorphone 0.5 Mg/0.5 Ml Syringe IVPUSH 12/24/20 08:05 0.5 mg ONETIME ONE Administration Sodium Chloride 1,000 mls @ 1,000 mls/hr 12/24/20 08:02 12/24/20 08:56 Normal Saline IV 12/24/20 09:01 1,000 mls/hr .BOLUS STA Administration Ketorolac Tromethamine 30 mg 12/24/20 08:04 12/24/20 08:56 Ketorolac 30 Mg/Ml Sdv IVPUSH 12/24/20 08:05 30 mg ONETIME ONE Administration Ondansetron HCl 4 mg 12/24/20 08:02 12/24/20 08:57 Ondansetron 4 Mg/2 Ml Sdv IVPUSH 12/24/20 08:03 4 mg ONETIME ONE Administration - Re-Assessments/Exams Free Text/Narrative Re-Assessment/Exam: 12/24/20 10:00 I ordered an IV NS 1L bolus, zofran 4mg IV, toradol 30mg IV, dilaudid 0.5mg IV, labs and UA. Her WBC was elevated at 12.45. Her Na was a little low at 134. Her UA shows leukocyte esterase, blood, WBCs and epithelial cells. I called [facility] in [place] and talked with Dr Obrien the urologist manager registration and he accepted the patient. I also talked with the hospitalist Dr Romano. I have ordered a dose of rocephin. 12/24/20 10:17 I will send her by ambulance. Departure - Departure Time of Disposition: 10:20 Disposition: DC/Tfer to Acute Hospital 02 Condition: Poor Clinical Impression: UTI, Urinary tract infectious disease, Ureteric colic, Kidney stone on right side, Ureteral calculus, right - Discharge Information Referrals: Ilene Guzman MD [Primary Care Provider] - Forms: ED Department Discharge Sepsis Event Note (ED) - Evaluation Sepsis Screening Result: Possible Sepsis Risk - Focused Exam Vital Signs: Vital Signs Temp Pulse Resp BP Pulse Ox 12/24/20 07:46 97.3 F 129 H 18 111/75 95 - My Orders Last 24 Hours: My Active Orders 12/24/20 08:02 Sodium Chloride 0.9% [Saline Flush] 10 ml FLUSH ASDIRECTED PRN Peripheral IV Insertion Adult [OM.PC] Stat 12/24/20 08:03 Peripheral IV Care [RC] . DIRECTED ED Antiemetic Medication Reflex [OM.PC] Stat 12/24/20 09:27 CULTURE URINE [MREF] Stat 12/24/20 09:56 cefTRIAXone [Rocephin] 2 gm Sodium Chloride 0.9% [Normal Saline] 100 ml IV ONETIME - Assessment/Plan Last 24 Hours: My Active Orders 12/24/20 08:02 Sodium Chloride 0.9% [Saline Flush] 10 ml FLUSH ASDIRECTED PRN Peripheral IV Insertion Adult [OM.PC] Stat 12/24/20 08:03 Peripheral IV Care [RC] . DIRECTED ED Antiemetic Medication Reflex [OM.PC] Stat 12/24/20 09:27 CULTURE URINE [MREF] Stat 12/24/20 09:56 cefTRIAXone [Rocephin] 2 gm Sodium Chloride 0.9% [Normal Saline] 100 ml IV ONETIME
[2020-12-24] MEDS ORDERED: cefTRIAXone 2 GM in Sodium Chloride 0.9% 100 ML IV ONE (09:56)
[2020-12-24] MEDS ORDERED: Sodium Chloride 0.9% 1,000 ML IV SCH (10:30)
[2020-12-24 13:41] VITALS: BP 115/74; PULSE 96
== END 2020-12-24 10:40 ==
LOC: JD.ED 07:25
DX: N20.2 Calculus of kidney with calculus of ureter (principal); N39.0 Urinary tract infection, site not specified; I10 Essential (primary) hypertension; J45.909 Unspecified asthma, uncomplicated; E03.9 Hypothyroidism, unspecified; Z79.899 Other long term (current) drug therapy; Z20.822 Contact with and (suspected) exposure to COVID-19
CPT/HCPCS: 36415; 80053; 81001; 85025; 87086; 87186; 87635; 96365; 96375; 99285; J0696; J1170; J1885; J2405; J7030; 99284; U0002

== ENCOUNTER 2021-04-15 13:55 | Emergency (ER) | payer BC ==
[2021-04-15] MEDS ORDERED: Sodium Chloride 0.9% 10 ML Syringe FLUSH PRN (14:05)
[2021-04-15 14:06] VITALS: BP 156/78; PULSE 110
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
--- NOTE | 2021-04-15 14:50 | CR ---
Chest: Portable view of the chest was obtained. Comparison: Prior chest x-ray of 09/19/16. Heart size and mediastinum are normal. Lungs are clear with no acute parenchymal change. Minimal scoliosis is noted within the spine. Impression: 1. Nothing acute is seen on portable chest x-ray. 2. No change from prior chest x-ray is seen. Diagnostic code #1
== END 2021-04-15 15:38 | disposition home or self-care (01) ==
LOC: JD.ED 13:55
DX: T65.891A Toxic effect of other specified substances, accidental (unintentional), initial encounter (principal); R07.89 Other chest pain; F41.9 Anxiety disorder, unspecified; I10 Essential (primary) hypertension; E03.9 Hypothyroidism, unspecified; J45.909 Unspecified asthma, uncomplicated; Z20.822 Contact with and (suspected) exposure to COVID-19
CPT/HCPCS: 36415; 71045; 71045-26; 80053; 83735; 83880; 84484; 85025; 85610; 85730; 93005; 99285-25; U0002

== ENCOUNTER 2021-06-15 13:02 | Emergency (ER) | payer BC ==
[2021-06-15 13:52] VITALS: BP 141/88; PULSE 104
[2021-06-15] MEDS ORDERED: Sodium Chloride 0.9% 1,000 ML IV STA (14:07)
[2021-06-15] MEDS ORDERED: Ondansetron 4 MG/2 ML SDV IVPUSH ONE ×2 (14:07→15:46)
[2021-06-15] MEDS ORDERED: Ketorolac 30 MG/ML SDV IVPUSH ONE (14:07)
--- NOTE | 2021-06-15 17:34 | EDM.PDOC ---
ED HPI GENERAL MEDICAL PROBLEM - General Chief Complaint: Skin Complaint Stated Complaint: FEVER\VOMITING\ANKLE INFECTED Time Seen by Provider: 06/15/21 13:38 Source of Information: Reports: Patient, RN Notes Reviewed History Limitations: Reports: No Limitations - History of Present Illness INITIAL COMMENTS - FREE TEXT/NARRATIVE: Patient is a 30-year-old female presenting to the emergency department with complaints of low-grade fever, vomiting, and painful reddened lesion to her left posterior ankle. Patient reports on Monday she developed a blister on her left posterior ankle. Yesterday morning the area became red and painful. Today, had progressed further. She developed vomiting this morning. She was evaluated in the clinic and received a dose of IM Rocephin and a prescription for Zofran. Blood work was completed and found to be overall normal. When getting home, she developed low-grade fever and took a dose of Motrin. She has not taken her prescribed Zofran thus far. She is scheduled to follow-up in the clinic at 11 AM tomorrow. 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 (see below) Other Treatments JAVA APPLICATION DEVELOPER: rocephin IM Left Posterior Ankle Pain Score (Numeric/FACES): 8 - Related Data Allergies Allergy/AdvReac Type Severity Reaction Status Date / Time No Known Allergies Allergy Verified 12/24/20 07:59 Home Meds: Home Meds Escitalopram Oxalate [Lexapro] 10 mg PO DAILY 01/11/20 [History] Levothyroxine 75 mcg PO ACBREAKFAST 01/11/20 [History] Albuterol [Ventolin HFA] 2 puff INH Q4H PRN 02/10/20 [History] Cholecalciferol (Vitamin D3) [Vitamin D3] 5,000 unit PO DAILY 02/10/20 [History] Albuterol Sulfate 1 dose NEB ASDIRECTED PRN 03/05/20 [History] Ibuprofen [Motrin] 600 mg PO Q4H PRN tablet 03/06/20 [Rx] Nitrofurantoin Monohyd/M-Cryst [Macrobid 100 mg Capsule] 100 mg PO Q12HR #10 capsule 12/23/20 [Rx] Ondansetron [Zofran ODT] 4 mg PO Q8HR PRN #7 tab.dis 12/23/20 [Rx] ClonazePAM [KlonoPIN] 1 mg PO DAILY PRN 12/24/20 [History] Hydrocodone/Acetaminophen [Hydrocodone-Acetamin 5-325 mg] 1 tab PO Q6H PRN 12/24/20 [History] Methylphenidate HCl [Methylphenidate ER] 36 mg PO DAILY 12/24/20 [History] Past Medical History - Past Health History Medical/Surgical History: Denies Medical/Surgical History HEENT History: Reports: Other (See Below) Other HEENT History: Wears glasses Cardiovascular History: Reports: Hypertension Other Cardiovascular History: Sinus tachycardia Respiratory History: Reports: Asthma Gastrointestinal History: Reports: Chronic Constipation, GERD, Irritable Bowel Syndrome Other Gastrointestinal History: RUQ pain Genitourinary History: Reports: None Other Genitourinary History: frequency 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 low amniotic fluid Musculoskeletal History: Reports: Back Pain, Chronic Neurological History: Reports: Other (See Below) Other Neuro History: night terrors Psychiatric History: Reports: ADHD Other Psychiatric History: Night terrors Endocrine/Metabolic History: Reports: Hypothyroidism, Vitamin D Deficiency Hematologic History: Reports: Anemia Immunologic History: Reports: None Oncologic (Cancer) History: Reports: None Dermatologic History: Reports: None - Infectious Disease History Infectious Disease History: Reports: None, Novel Coronavirus - Past Surgical History Head Surgeries/Procedures: Reports: None HEENT Surgical History: Reports: Oral Surgery, Tonsillectomy Cardiovascular Surgical History: Reports: None Respiratory Surgical History: Reports: None GI Surgical History: Reports: Colonoscopy Female Surgical History: Reports: D&C Endocrine Surgical History: Reports: None Neurological Surgical History: Reports: None Musculoskeletal Surgical History: Reports: Other (See Below) Other Musculoskeletal Surgeries/Procedures:: Right wrist cyst removal, sacral pilonidal cyst removal Oncologic Surgical History: Reports: None Social & Family History - Family History Family Medical History: No Pertinent Family History - Tobacco Use Tobacco Use Status *Q: Never Tobacco User - Caffeine Use Caffeine Use: Reports: Coffee, Energy Drinks, Soda, Tea - Recreational Drug Use Recreational Drug Use: No ED ROS GENERAL - Review of Systems Review Of Systems: See Below Constitutional: Reports: Fever, Chills HEENT: Reports: No Symptoms Respiratory: Reports: No Symptoms Cardiovascular: Reports: No Symptoms Endocrine: Reports: No Symptoms GI/Abdominal: Reports: Nausea, Vomiting. Denies: Abdominal Pain : Reports: No Symptoms Musculoskeletal: Reports: No Symptoms Skin: Reports: Wound Neurological: Reports: No Symptoms Psychiatric: Reports: No Symptoms Hematologic/Lymphatic: Reports: No Symptoms Immunologic: Reports: No Symptoms ED EXAM, SKIN/RASH Exam: See Below Exam Limited By: No Limitations General Appearance: Alert, WD/WN, No Apparent Distress Respiratory/Chest: No Respiratory Distress, Lungs Clear, Normal Breath Sounds, No Accessory Muscle Use, Chest Non-Tender Cardiovascular: Normal Peripheral Pulses, Regular Rate, Rhythm, No Edema, No Gallop, No JVD, No Murmur, No Rub Neurological: Alert, Oriented, CN II-XII Intact, Normal Cognition, Normal Gait Psychiatric: Normal Affect, Normal Mood Skin: Other (Scabbed over blister to the left posterior ankle. Approximate 5 cm area of induration and warmth. Area outlined with skin marker.) Course - Vital Signs Last Recorded V/S: Last Vital Signs Temp 99.1 F 06/15/21 13:48 Pulse 104 H 06/15/21 13:48 Resp BP 141/88 H 06/15/21 13:48 Pulse Ox 98 06/15/21 13:48 - Orders/Labs/Meds Labs: Laboratory Tests 06/15/21 06/15/21 06/15/21 Range/Units 14:45 14:45 14:45 WBC 6.22 (3.98-10.04) K/mm3 RBC 4.56 (3.98-5.22) M/mm3 Hgb 12.9 (11.2-15.7) gm/dl Hct 40.2 (34.1-44.9) % MCV 88.2 (79.4-94.8) fl MCH 28.3 (25.6-32.2) pg MCHC 32.1 L (32.2-35.5) g/dl RDW Std Deviation 42.1 (36.4-46.3) fL Plt Count 280 (182-369) K/mm3 MPV 9.9 (9.4-12.3) fl Neut % (Auto) 71.7 H (34.0-71.1) % Lymph % (Auto) 18.8 L (19.3-51.7) % [place] % (Auto) 8.5 (4.7-12.5) % Eos % (Auto) 0.8 (0.7-5.8) Baso % (Auto) 0.2 (0.1-1.2) % Neut # (Auto) 4.46 (1.56-6.13) K/mm3 Lymph # (Auto) 1.17 L (1.18-3.74) K/mm3 [place] # (Auto) 0.53 H (0.24-0.36) K/mm3 Eos # (Auto) 0.05 (0.04-0.36) K/mm3 Baso # (Auto) 0.01 (0.01-0.08) K/mm3 Sodium 138 (136-145) mEq/L Potassium 3.3 L (3.5-5.1) mEq/L Chloride 104 (98-107) mEq/L Carbon Dioxide 26 (21-32) mEq/L Anion Gap 11.3 (5-15) BUN 6 L (7-18) mg/dL Creatinine 0.7 (0.55-1.02) mg/dL Est Cr Clr Drug Dosing 100.55 mL/min Estimated GFR (MDRD) > 60 (>60) mL/min BUN/Creatinine Ratio 8.6 L (14-18) Glucose 91 (70-99) mg/dL Lactic Acid 0.5 (0.4-2.0) mmol/L Calcium 8.5 (8.5-10.1) mg/dL Total Bilirubin 0.6 (0.2-1.0) mg/dL AST 17 (15-37) U/L ALT 34 (14-59) U/L Alkaline Phosphatase 68 (46-116) U/L C-Reactive Protein 3.3 H* (<1.0) mg/dL Total Protein 7.5 (6.4-8.2) g/dl Albumin 3.8 (3.4-5.0) g/dl Globulin 3.7 gm/dL Albumin/Globulin Ratio 1.0 (1-2) Meds: Medications Discontinued Medications Generic Name Dose Route Start Last Admin Trade Name Freq PRN Reason Stop Dose Admin Sodium Chloride 1,000 mls @ 999 mls/hr 06/15/21 14:07 06/15/21 14:52 Normal Saline IV 06/15/21 15:07 999 mls/hr NOW STA Administration Ketorolac Tromethamine 15 mg 06/15/21 14:07 06/15/21 14:49 Ketorolac 30 Mg/Ml Sdv IVPUSH 06/15/21 14:08 15 mg ONETIME ONE Administration Ondansetron HCl 4 mg 06/15/21 14:07 06/15/21 14:49 Ondansetron 4 Mg/2 Ml Sdv IVPUSH 06/15/21 14:08 4 mg ONETIME ONE Administration Ondansetron HCl 4 mg 06/15/21 15:46 06/15/21 15:51 Ondansetron 4 Mg/2 Ml Sdv IVPUSH 06/15/21 15:47 4 mg ONETIME ONE Administration - Re-Assessments/Exams Free Text/Narrative Re-Assessment/Exam: Patient is a 30-year-old female presenting to the emergency department with complaints of low-grade fever, vomiting, and pain and swelling to a lesion on her left posterior ankle. On exam, there is approximate 8 cm area of redness and warmth surrounding a scabbed blister. Area is marked and has not traveled outside the markings from the clinic. Exam is otherwise unremarkable. I have ordered repeat blood work including lactic acid and blood cultures. I will give her a liter of IV fluids and Zofran for nausea. 06/15/21 1545 Hematology significant for potassium slightly low at 3.3 and CRP minimally elevated at 3.3. Lactic acid is normal at 0.5. WBCs are normal at 6.22. Patient did vomit one more time. I have ordered an additional dose of Zofran IV. 06/15/21 17:32 Patient has had no further vomiting since the 2nd dose of Zofran. States that she feels hungry but is still slightly nauseous. Discussed options of continuing to monitor in the ER or if she feels comfortable, she may go home and monitor her symptoms, returning if they should worsen. She would like to be discharged home. She has a prescription for Zofran at the pharmacy. She received her Rocephin injection around 11 AM today and is scheduled to follow-up in the clinic at 11 AM tomorrow. Discussed that if she should experience worsening symptoms before her appointment tomorrow, she should return to the emergency department. She verbalized understanding of this. Discharge instructions as document. Departure - Departure Time of Disposition: 17:34 Disposition: Home, Self-Care 01 Condition: Good Clinical Impression: Cellulitis Qualifiers: Site of cellulitis: extremity Site of cellulitis of extremity: lower extremity Laterality: left Qualified Code(s): L03.116 - Cellulitis of left lower limb - Discharge Information *PRESCRIPTION DRUG MONITORING PROGRAM REVIEWED*: No *COPY OF PRESCRIPTION DRUG MONITORING REPORT IN PATIENT SPEEDY: No Instructions: Cellulitis, Adult Referrals: Ilene Guzman MD [Primary Care Provider] - Forms: ED Department Discharge Additional Instructions: Use the Zofran previously prescribed as needed for nausea. You may take your next dose at approximately 10 PM. Recommend clear liquids and slowly advance diet as tolerated. Keep your appointment as scheduled in the clinic tomorrow at 11 AM. If your symptoms should worsen or you develop any other new symptoms of concern, please return to the emergency department for reevaluation.
== END 2021-06-15 17:45 | disposition home or self-care (01) ==
LOC: JD.ED 13:02
DX: L03.116 Cellulitis of left lower limb (principal); I10 Essential (primary) hypertension; J45.909 Unspecified asthma, uncomplicated; E03.9 Hypothyroidism, unspecified; Z86.16 Personal history of COVID-19; Z79.899 Other long term (current) drug therapy
CPT/HCPCS: 36415; 80053; 83605; 85025; 86140; 87040; 96374; 96375; 96376; 99283-25; J1885; J2405; J7030

== ENCOUNTER 2021-09-26 11:41 | Emergency (ER) | payer BC ==
[2021-09-26 11:53] VITALS: BP 148/94; PULSE 137
[2021-09-26] MEDS ORDERED: Sodium Chloride 0.9% 10 ML Syringe FLUSH PRN (12:04)
[2021-09-26] MEDS ORDERED: LORazepam 0.5 MG Tab PO ONE (12:04)
[2021-09-26] MEDS ORDERED: Ketorolac 60 MG/2 ML SDV IM ONE (13:46)
== END 2021-09-26 14:00 | disposition home or self-care (01) ==
LOC: JD.ED 11:41
DX: O20.0 Threatened abortion (principal); I10 Essential (primary) hypertension; E03.9 Hypothyroidism, unspecified; Z79.899 Other long term (current) drug therapy; Z3A.01 Less than 8 weeks gestation of pregnancy
CPT/HCPCS: 36415; 76817; 84702; 85025; 86900; 86901; 96372; 99284; A9270; J1885

== ENCOUNTER 2021-10-26 06:59 | Day surgery (SDC) | payer BC ==
[~2021-10-26 06:59] MED LIST changes: +Lactated Ringers 1,000 ML IV SCH; +Sodium Chloride 0.9% 10 ML Syringe FLUSH SCH
[2021-10-26] MEDS ORDERED: Doxycycline 100 MG Cap PO SCH (07:00)
[2021-10-26] MEDS ORDERED: Albuterol 0.083% 2.5 MG/3 ML Neb Soln NEB SCH (07:23)
[2021-10-26] MEDS ORDERED: Methylergonovine 0.2 MG/1 ML Amp ONE (07:25)
[2021-10-26] MEDS ORDERED: Midazolam 1 MG/ML 2 ML SDV ONE ×2 (07:29→07:55)
[2021-10-26] MEDS ORDERED: fentaNYL 100 MCG/2 ML SDV ONE (07:29)
[2021-10-26] MEDS ORDERED: Ketorolac 15 MG/ML SDV ONE ×2 (07:29→08:25)
[2021-10-26] MEDS ORDERED: Propofol 200 MG/20 ML SDV ONE ×2 (07:29→08:06)
[2021-10-26] MEDS ORDERED: Ondansetron 4 MG/2 ML SDV ONE (07:29)
[2021-10-26] MEDS ORDERED: Dexamethasone 4 MG/ML 5 ML MDV ONE (07:29)
[2021-10-26] MEDS ORDERED: Ondansetron 4 MG/2 ML SDV IVPUSH PRN (08:49)
[2021-10-26] MEDS ORDERED: fentaNYL 100 MCG/2 ML SDV IVPUSH PRN (08:49)
[2021-10-26] MEDS ORDERED: HYDROmorphone 0.5 MG/0.5 ML Syringe IVPUSH PRN (08:49)
[2021-10-26] MEDS ORDERED: Promethazine 25 MG Tab PO PRN (09:24)
[2021-10-26] MEDS: Acetaminophen/oxyCODONE 325-5 MG Tab PO ONE ×2 (09:55→10:25)
[2021-10-26 10:38] VITALS: BP 105/62; PULSE 78
== END 2021-10-26 10:35 | disposition home or self-care (01) ==
LOC: JD.SDS 06:59
PROVIDERS: ATTEND Obstetrics & Gynecology
DX: O02.1 Missed abortion (principal); I10 Essential (primary) hypertension; E78.00 Pure hypercholesterolemia, unspecified; E03.9 Hypothyroidism, unspecified; E55.9 Vitamin D deficiency, unspecified; F41.9 Anxiety disorder, unspecified; F90.9 Attention-deficit hyperactivity disorder, unspecified type; F32.A Depression, unspecified; K21.9 Gastro-esophageal reflux disease without esophagitis; J45.901 Unspecified asthma with (acute) exacerbation; Z90.89 Acquired absence of other organs; Z98.890 Other specified postprocedural states; Z79.890 Hormone replacement therapy; Z79.899 Other long term (current) drug therapy; Z86.16 Personal history of COVID-19
CPT/HCPCS: 59820; A9270; J1100; J1885; J2210; J2250; J2405; J2704; J3010; J7120; 01965

== ENCOUNTER 2022-02-16 06:16 | Emergency (ER) | payer BC ==
[2022-02-16 06:32] VITALS: BP 115/75; PULSE 97
== END 2022-02-16 10:02 | disposition home or self-care (01) ==
LOC: JD.ED 06:16
DX: O20.9 Hemorrhage in early pregnancy, unspecified (principal); Z3A.01 Less than 8 weeks gestation of pregnancy
CPT/HCPCS: 36415; 76817; 76817-26; 81001; 84702; 85025; 99284

== ENCOUNTER 2022-07-12 19:24 | Emergency (ER) | payer BC ==
[2022-07-12 19:35] VITALS: BP 137/88; PULSE 102
[2022-07-12] MEDS ORDERED: Lidocaine/EPINEPHrine/Tetracaine Soln 1 ML TOP ONE (19:53)
[2022-07-12] MEDS ORDERED: Lidocaine 1% 10 ML MDV INJECT ONE (19:54)
[2022-07-12] MEDS ORDERED: Acetaminophen/HYDROcodone 325-5 MG Tab PO ONE (21:22)
[2022-07-12] MEDS ORDERED: Acetaminophen/oxyCODONE 325-5 MG Tab ONE (21:28)
[2022-07-12] MEDS ORDERED: Acetaminophen/HYDROcodone 325-10 MG Tab ONE (21:39)
== END 2022-07-12 21:43 | disposition home or self-care (01) ==
LOC: JD.ED 19:24
DX: L02.416 Cutaneous abscess of left lower limb (principal); I10 Essential (primary) hypertension; J45.909 Unspecified asthma, uncomplicated; E03.9 Hypothyroidism, unspecified; Z79.899 Other long term (current) drug therapy
CPT/HCPCS: 10060; 99283-25

== ENCOUNTER 2022-07-16 07:58 | Emergency (ER) | payer BC ==
[2022-07-16 08:23] VITALS: BP 128/80; PULSE 92
[2022-07-16] MEDS ORDERED: cefTRIAXone 2 GM in Sodium Chloride 0.9% 100 ML IV ONE (08:30)
== END 2022-07-16 10:00 | disposition home or self-care (01) ==
LOC: JD.ED 07:58
DX: L05.01 Pilonidal cyst with abscess (principal); I10 Essential (primary) hypertension; J45.909 Unspecified asthma, uncomplicated; E03.9 Hypothyroidism, unspecified; Z79.899 Other long term (current) drug therapy
CPT/HCPCS: 96365; 99282; J0696

== ENCOUNTER 2022-07-19 05:25 | Emergency (ER) | payer BC ==
[2022-07-19 05:43] VITALS: BP 118/79; PULSE 97
[2022-07-19] MEDS ORDERED: Acetaminophen/HYDROcodone 325-5 MG Tab PO ONE (06:15)
[2022-07-19] MEDS ORDERED: Sodium Chloride 0.9% 10 ML Syringe FLUSH PRN (09:14)
[2022-07-19] MEDS ORDERED: HYDROmorphone 0.5 MG/0.5 ML Syringe IVPUSH ONE (09:14)
[2022-07-19] MEDS ORDERED: HYDROmorphone 1 MG/ML Syringe IVPUSH ONE (10:34)
[2022-07-19] MEDS ORDERED: LORazepam 1 MG Tab PO ONE (10:37)
[2022-07-19] MEDS ORDERED: Lidocaine 2% with EPINEPHrine 1:200,000 20 ML SDV INJECT ONE (10:58)
== END 2022-07-19 12:55 | disposition home or self-care (01) ==
LOC: JD.ED 05:25
DX: L05.01 Pilonidal cyst with abscess (principal); I10 Essential (primary) hypertension; E03.9 Hypothyroidism, unspecified; K21.9 Gastro-esophageal reflux disease without esophagitis; Z79.899 Other long term (current) drug therapy
CPT/HCPCS: 10080; 96374; 96376; 99282-25; A9270-GY; J1170; J3490

== ENCOUNTER 2022-08-11 07:14 | Emergency (ER) | payer BC ==
[2022-08-11] MEDS ORDERED: HYDROmorphone 0.5 MG/0.5 ML Syringe IVPUSH ONE (08:31)
[2022-08-11] MEDS ORDERED: cefTRIAXone 2 GM in Sodium Chloride 0.9% 100 ML IV ONE (08:31)
[2022-08-11] MEDS ORDERED: Lidocaine 1% 10 ML MDV INJECT ONE (08:32)
[2022-08-11] MEDS ORDERED: Lidocaine/EPINEPHrine/Tetracaine Soln 1 ML TOP ONE (08:32)
[2022-08-11] MEDS ORDERED: Lidocaine 1% 10 ML MDV ONE (08:37)
[2022-08-11] MEDS ORDERED: Acetaminophen/HYDROcodone 325-5 MG Tab PO ONE (09:16)
[2022-08-11 09:52] VITALS: BP 122/89; PULSE 80
== END 2022-08-11 10:00 | disposition home or self-care (01) ==
LOC: JD.ED 07:14
DX: O99.713 Diseases of the skin and subcutaneous tissue complicating pregnancy, third trimester (principal); L05.01 Pilonidal cyst with abscess; O99.283 Endocrine, nutritional and metabolic diseases complicating pregnancy, third trimester; E03.9 Hypothyroidism, unspecified; O10.113 Pre-existing hypertensive heart disease complicating pregnancy, third trimester; Z3A.32 32 weeks gestation of pregnancy; Z79.82 Long term (current) use of aspirin; Z79.899 Other long term (current) drug therapy
CPT/HCPCS: 10060; 96365; 96375; 99282; A9270; J0696; J1170; J3490

== ENCOUNTER 2022-08-19 10:59 | Day surgery (SDC) | payer BC ==
[2022-08-19] MEDS ORDERED: HYDROmorphone 0.5 MG/0.5 ML Syringe IVPUSH PRN (11:23)
[2022-08-19] MEDS ORDERED: fentaNYL 100 MCG/2 ML SDV IVPUSH PRN (11:23)
[2022-08-19] MEDS ORDERED: Ondansetron 4 MG/2 ML SDV IVPUSH PRN (11:23)
[2022-08-19] MEDS ORDERED: ceFAZolin 2 GM in Sodium Chloride 0.9% 50 ML IV ONE (11:26)
[2022-08-19] MEDS ORDERED: Bupivacaine 0.5%/EPINEPHrine 1:200,000 50 ML MDV ONE (11:31)
[2022-08-19] MEDS ORDERED: Ondansetron 4 MG/2 ML SDV ONE (12:00)
[2022-08-19] MEDS ORDERED: Phenylephrine HCl In 0.9% NaCl 1 MG/10 ML Vial ONE (12:00)
[2022-08-19] MEDS ORDERED: Midazolam 1 MG/ML 2 ML SDV ONE (12:01)
[2022-08-19] MEDS ORDERED: ceFAZolin 2 GM Vial ONE (12:17)
[2022-08-19] MEDS ORDERED: Promethazine 12.5 MG in Sodium Chloride 0.9% 50 ML IV PRN (13:03)
[2022-08-19] MEDS ORDERED: Lactated Ringers 1,000 ML IV SCH (13:15)
[2022-08-19 13:35] VITALS: PULSE 75
[2022-08-19] MEDS ORDERED: traMADol 50 MG Tab PO PRN (14:04)
[2022-08-19 14:16] VITALS: BP 109/68
== END 2022-08-19 16:05 | disposition home or self-care (01) ==
LOC: JD.ED 10:59 → JD.SDS 11:18
PROVIDERS: ATTEND Specialist
DX: L05.92 Pilonidal sinus without abscess (principal); F90.9 Attention-deficit hyperactivity disorder, unspecified type; J45.901 Unspecified asthma with (acute) exacerbation; F41.9 Anxiety disorder, unspecified; F32.A Depression, unspecified; K21.9 Gastro-esophageal reflux disease without esophagitis; E78.00 Pure hypercholesterolemia, unspecified; E03.9 Hypothyroidism, unspecified; K58.9 Irritable bowel syndrome, unspecified; E55.9 Vitamin D deficiency, unspecified; I10 Essential (primary) hypertension; D64.9 Anemia, unspecified; Z79.899 Other long term (current) drug therapy; Z79.890 Hormone replacement therapy; Z98.890 Other specified postprocedural states; Z86.16 Personal history of COVID-19; Z79.82 Long term (current) use of aspirin
CPT/HCPCS: 51500; J0690; J2250; J2405; J2550; J3490; J7120; 00300; 10060; 99284

== ENCOUNTER 2022-08-22 15:56 | Day surgery (SDC) | payer BC ==
[~2022-08-22 15:56] MED LIST changes: +Citric Acid/Sodium Citrate Solution 30 ML Cup PO ONE; -Lactated Ringers 1,000 ML IV SCH; -Lidocaine 1%/Sod Bicarbonate in NS 8.4% 1 ML Syringe IDERM PRN; +Metoclopramide 10 MG/2 ML SDV ONE; +Ondansetron 4 MG/2 ML SDV ONE; -Sodium Chloride 0.9% 10 ML Syringe FLUSH PRN; -Sodium Chloride 0.9% 10 ML Syringe FLUSH SCH
[2022-08-22] MEDS ORDERED: ceFAZolin 2 GM Vial ONE (15:57)
[2022-08-22] MEDS ORDERED: Propofol 200 MG/20 ML SDV ONE ×2 (15:57→16:33)
[2022-08-22] MEDS ORDERED: Lidocaine 1% 5 ML VIAL ONE (15:58)
[2022-08-22] MEDS ORDERED: Bupivacaine 0.5%/EPINEPHrine 1:200,000 50 ML MDV ONE (16:12)
[2022-08-22] MEDS ORDERED: fentaNYL 100 MCG/2 ML SDV ONE (16:35)
[2022-08-22] MEDS ORDERED: Lactated Ringers 1,000 ML IV SCH (17:00)
[2022-08-22] MEDS ORDERED: Sodium Chloride 0.9% 10 ML Syringe FLUSH PRN (17:00)
[2022-08-22] MEDS ORDERED: Lidocaine 1%/Sod Bicarbonate in NS 8.4% 1 ML Syringe IDERM PRN (17:00)
[2022-08-22] MEDS ORDERED: Ondansetron 4 MG/2 ML SDV IVPUSH PRN (17:45)
[2022-08-22 19:44] VITALS: BP 124/63; PULSE 88
== END 2022-08-22 18:23 | disposition home or self-care (01) ==
LOC: JD.SDS 15:56
PROVIDERS: ATTEND Specialist
DX: R22.42 Localized swelling, mass and lump, left lower limb (principal); F90.9 Attention-deficit hyperactivity disorder, unspecified type; F41.9 Anxiety disorder, unspecified; J45.901 Unspecified asthma with (acute) exacerbation; I10 Essential (primary) hypertension; F32.A Depression, unspecified; K21.9 Gastro-esophageal reflux disease without esophagitis; E78.00 Pure hypercholesterolemia, unspecified; E03.9 Hypothyroidism, unspecified; K58.9 Irritable bowel syndrome, unspecified; E55.9 Vitamin D deficiency, unspecified; Z79.899 Other long term (current) drug therapy; Z79.82 Long term (current) use of aspirin; Z79.890 Hormone replacement therapy; Z98.890 Other specified postprocedural states; Z86.16 Personal history of COVID-19; Z87.891 Personal history of nicotine dependence
CPT/HCPCS: 11402; A9270; J0690; J2405; J2704; J2765; J3010; J3490; J7120; 00400

== ENCOUNTER 2023-05-02 14:59 | Emergency (ER) | payer BC ==
[2023-05-02] MEDS ORDERED: Lidocaine/EPINEPHrine/Tetracaine Soln 1 ML TOP ONE (16:08)
[2023-05-02] MEDS ORDERED: Lidocaine 1% 10 ML MDV INJECT ONE (16:08)
[2023-05-02] MEDS ORDERED: HYDROmorphone 1 MG/ML Syringe IM ONE (16:58)
[2023-05-02] MEDS ORDERED: Cephalexin 500 MG Cap PO ONE (18:04)
[2023-05-02 19:48] VITALS: BP 126/92; PULSE 82
== END 2023-05-02 18:27 | disposition home or self-care (01) ==
LOC: JD.ED 14:59
DX: L02.415 Cutaneous abscess of right lower limb (principal); I10 Essential (primary) hypertension; J45.909 Unspecified asthma, uncomplicated; E03.9 Hypothyroidism, unspecified; Z86.16 Personal history of COVID-19; Z79.899 Other long term (current) drug therapy
CPT/HCPCS: 96372; 99282; J1170; 99283; J3490

== ENCOUNTER 2023-05-12 13:09 | Emergency (ER) | payer BC ==
[2023-05-12] MEDS ORDERED: Lidocaine/EPINEPHrine/Tetracaine Soln 1 ML TOP ONE (15:13)
[2023-05-12] MEDS ORDERED: HYDROmorphone 1 MG/ML Syringe IM ONE (16:24)
[2023-05-12 17:35] VITALS: BP 138/108; PULSE 113
== END 2023-05-12 17:21 | disposition home or self-care (01) ==
LOC: JD.ED 13:09
DX: L02.415 Cutaneous abscess of right lower limb (principal); L02.416 Cutaneous abscess of left lower limb; I10 Essential (primary) hypertension; E03.9 Hypothyroidism, unspecified; Z86.16 Personal history of COVID-19; Z79.899 Other long term (current) drug therapy
CPT/HCPCS: 99282; J3490

== ENCOUNTER 2023-05-16 10:02 | Day surgery (SDC) | payer BC ==
[~2023-05-16 10:02] MED LIST changes: -Citric Acid/Sodium Citrate Solution 30 ML Cup PO ONE; +Lactated Ringers 1,000 ML IV SCH; -Metoclopramide 10 MG/2 ML SDV ONE; -Ondansetron 4 MG/2 ML SDV ONE; +Sodium Chloride 0.9% 10 ML Syringe FLUSH PRN; +Sodium Chloride 0.9% 10 ML Syringe FLUSH SCH
[2023-05-16] MEDS ORDERED: Midazolam 1 MG/ML 2 ML SDV ONE (10:56)
[2023-05-16] MEDS ORDERED: Lidocaine 1% 4 ML ONE (10:59)
[2023-05-16] MEDS ORDERED: Propofol 200 MG/20 ML SDV ONE (10:59)
[2023-05-16] MEDS ORDERED: fentaNYL 100 MCG/2 ML SDV ONE (10:59)
[2023-05-16] MEDS ORDERED: Bupivacaine 0.25% 10 ML SDV ONE (11:11)
[2023-05-16] MEDS ORDERED: EPINEPHrine 1 MG/ML SDV ONE (11:11)
[2023-05-16] MEDS ORDERED: Lidocaine 2% 11 ML Jelly Filled Syringe ONE (11:13)
[2023-05-16] MEDS ORDERED: Lidocaine 2% 5 ML SDV ONE (11:18)
[2023-05-16] MEDS ORDERED: ceFAZolin 2 GM Vial ONE (11:37)
[2023-05-16] MEDS ORDERED: Dexamethasone 4 MG/ML 5 ML MDV ONE (11:42)
[2023-05-16] MEDS ORDERED: Ondansetron 4 MG/2 ML SDV ONE (11:42)
[2023-05-16] MEDS ORDERED: fentaNYL 100 MCG/2 ML SDV IVPUSH PRN (12:25)
[2023-05-16] MEDS ORDERED: Ondansetron 4 MG/2 ML SDV IVPUSH PRN (12:25)
[2023-05-16] MEDS ORDERED: HYDROmorphone 0.5 MG/0.5 ML Syringe IVPUSH PRN (12:25)
[2023-05-16] MEDS ORDERED: Acetaminophen/HYDROcodone 325-5 MG Tab PO PRN (12:42)
[2023-05-16 13:40] VITALS: BP 120/80; PULSE 80
== END 2023-05-16 13:30 | disposition home or self-care (01) ==
LOC: JD.SDS 10:02
PROVIDERS: ATTEND Surgery
DX: L72.0 Epidermal cyst (principal); L02.214 Cutaneous abscess of groin; L92.3 Foreign body granuloma of the skin and subcutaneous tissue; F90.9 Attention-deficit hyperactivity disorder, unspecified type; J45.909 Unspecified asthma, uncomplicated; K59.09 Other constipation; F32.A Depression, unspecified; K21.9 Gastro-esophageal reflux disease without esophagitis; E78.00 Pure hypercholesterolemia, unspecified; I10 Essential (primary) hypertension; E03.9 Hypothyroidism, unspecified; F41.0 Panic disorder [episodic paroxysmal anxiety]; Z79.890 Hormone replacement therapy; Z79.899 Other long term (current) drug therapy
CPT/HCPCS: 11400; 81025; A9270; J0171; J0690; J1100; J2250; J2405; J2704; J3010; J3490; J7120

== ENCOUNTER 2025-02-12 12:21 | Emergency (ER) | payer BC ==
[2025-02-12 13:31] LABS: BASOPHILS ABSOLUTE AUTO 0.0 K/mm3 (0.0-0.2); BASOPHILS PERCENT AUTO 0.5 % (0.0-1.0); EOSINOPHILS ABSOLUTE AUTO 0.1 K/mm3 (0.0-0.4); EOSINOPHILS PERCENT AUTO 1.1 % (0.0-6.0); IMMATURE GRAN ABSOLUTE AUTO 0.04 K/mm3 (0.00-0.05); IMMATURE GRAN PERCENT AUTO 0.5 % (0.0-0.4); LYMPHOCYTES ABSOLUTE AUTO 1.9 K/mm3 (1.0-4.8); LYMPHOCYTES PERCENT AUTO 23.8 % (24.0-44.0); MEAN PLATELET VOLUME 9.4 fl (9.4-12.3); MONOCYTES ABSOLUTE AUTO 0.4 K/mm3 (0.0-0.8); MONOCYTES PERCENT AUTO 5.5 % (0.0-8.0); NEUTROPHILS ABSOLUTE AUTO 5.5 K/mm3 (1.8-7.7); NEUTROPHILS PERCENT AUTO 68.6 % (41.0-71.0); NRBC ABSOLUTE 0.00 (0.00-0.02); NRBC PERCENT 0.0 % (0.0-0.2); PLATELET COUNT,PLT 320 K/mm3 (150-400); RED BLOOD CELL COUNT 5.00 M/mm3 (4.10-5.30); WHITE BLOOD CELL COUNT,WBC 8.04 K/mm3 (3.9-11.3)
[2025-02-12] MEDS: Ondansetron 4 MG/2 ML SDV IVPUSH ONE (13:49)
[2025-02-12 13:55] LABS: A/G RATIO 1.1 (1-2); ALANINE AMINOTRANSFERASE,ALT 26.0 U/L (14-59); ASPARTATE AMNIOTRANSFERASE,AST 16.0 U/L (15-37); BILIRUBIN TOTAL 0.5 mg/dL (0.2-1.0); BLOOD UREA NITROGEN,BUN 10.0 mg/dL (7-18); CARBON DIOXIDE,CO2 26.0 mEq/L (21-32); CHLORIDE,CL 101.0 mEq/L (98-107); CREATININE 0.7 mg/dL (0.55-1.02); EST CRCL DRUG DOSING (CG) 100.94 mL/min; ESTIMATED GFR 116.0 mL/min (>60); GLUCOSE RANDOM 80.0 mg/dL (70-99); POTASSIUM,K 4.3 mEq/L (3.5-5.1); PROTEIN TOTAL,TP 7.9 g/dl (6.4-8.2); SODIUM,NA 136.0 mEq/L (136-145)
[2025-02-12] MEDS ORDERED: Sodium Chloride 0.9% 10 ML Syringe FLUSH PRN (14:08)
[2025-02-12] MEDS: Iopamidol 612 MG/ML 100 ML Bottle IVPUSH ONE (14:12)
[2025-02-12] MEDS: Sodium Chloride 0.9% 10 ML Syringe FLUSH PRN (14:12)
[2025-02-12] MEDS: Ketorolac 30 MG/ML SDV IVPUSH ONE (14:47)
[2025-02-12] MEDS: fentaNYL 100 MCG/2 ML SDV IVPUSH ONE (14:48)
[2025-02-12] MEDS: diphenhydrAMINE 50 MG/ML SDV IVPUSH ONE (15:27)
[2025-02-12 16:39] VITALS: BP 109/81; PULSE 85
== END 2025-02-12 16:35 | disposition home or self-care (01) ==
LOC: JD.ED 12:21
DX: K04.7 Periapical abscess without sinus (principal); I10 Essential (primary) hypertension; E03.9 Hypothyroidism, unspecified; Z88.8 Allergy status to other drugs, medicaments and biological substances; Z79.890 Hormone replacement therapy; Z79.899 Other long term (current) drug therapy; Z79.51 Long term (current) use of inhaled steroids; Z86.16 Personal history of COVID-19
CPT/HCPCS: 36415; 70487; 80053; 84703; 85025; 86140; 96374; 96375; 99284; J0696; J1171; J1200; J1885; J2405; J3010; Q9967; 99282